=== PATIENT | female | born 1985 | race Two or more races ===

== ENCOUNTER 2017-05-19 10:24 | Emergency (ER) | payer MEDICAID ==
[2017-05-19 10:36] VITALS: BP 130/76
--- NOTE | 2017-05-19 12:04 | ER Document Report ---
HPI - HPI Patient complains to provider of: vaginal bleeding Onset: Other - 5 days Onset/Duration: Persistent Quality of pain: Cramping Pain Level: 4 Context: Patient presents complaining of heavy vaginal bleeding for the past 5 days. Patient states that she has been passing clots and has pelvic cramping. Patient denies any fever or urinary symptoms. Patient denies any concern about sexually transmitted infection. Patient states her menstrual cycles are usually very regular and she has not missed any periods. Associated Symptoms: Other - Heavy vaginal bleeding. denies: Fever, Nausea, Vomiting Exacerbated by: Denies Relieved by: Denies Similar symptoms previously: No Recently seen / treated by doctor: No - ROS ROS below otherwise negative: Yes Systems Reviewed and Negative: Yes All other systems reviewed and negative - CONSTITUTIONAL Constitutional: DENIES: Fever, Chills - EENT EENT: DENIES: Sore Throat, Ear Pain, Eye problems - NEURO Neurology: DENIES: Headache, Weakness, Vision blurred, Dizzinesss / Vertigo - CARDIOVASCULAR Cardiovascular: DENIES: Chest pain - RESPIRATORY Respiratory: DENIES: Trouble Breathing, Coughing - GASTROINTESTINAL Gastrointestinal: REPORTS: Abdominal Pain. DENIES: Black / Bloody Stools - URINARY Urinary: DENIES: Dysuria, Urgency - REPRODUCTIVE Reproductive: REPORTS: Abnormal bleeding / discharge. DENIES: :, Postmenopausal - MUSCULOSKELETAL Musculoskeletal: DENIES: Extremity pain Past Medical History - General Information source: Patient - Social History Smoking Status: Current Every Day Smoker Chew tobacco use (# tins/day): No Frequency of alcohol use: None Drug Abuse: None Occupation: None Lives with: Family Family History: None, Reviewed & Not Pertinent Patient has suicidal ideation: No Patient has homicidal ideation: No - Past Medical History Cardiac Medical History: Denies: Hx Atrial Fibrillation, Hx Congestive Heart Failure, Hx Coronary Artery Disease, Hx DVT, Hx Heart Attack, Hx Hypercholesterolemia, Hx Hypertension, Hx Peripheral Vascular Disease, Hx Pulmonary Embolism Pulmonary Medical History: Denies: Hx Asthma, Hx Bronchitis, Hx COPD, Hx Pneumonia Renal/ Medical History: Denies: Hx Peritoneal Dialysis Psychiatric Medical History: Reports: Hx Attention Deficit Hyperactivity Disorder Surgical Hx: Negative - Immunizations Immunizations up to date: Yes Hx Diphtheria, Pertussis, Tetanus Vaccination: Yes Vertical Provider Document - CONSTITUTIONAL Agree With Documented VS: Yes Exam Limitations: No Limitations General Appearance: WD/WN, No Apparent Distress - INFECTION CONTROL TRAVEL OUTSIDE OF THE [place] IN LAST 30 DAYS: No - HEENT HEENT: Atraumatic, Normocephalic - NECK Neck: Normal Inspection - RESPIRATORY Respiratory: Breath Sounds Normal, No Respiratory Distress O2 Sat by Pulse Oximetry: 99 - CARDIOVASCULAR Cardiovascular: Regular Rate, Regular Rhythm - GI/ABDOMEN Gastrointestinal: Abdomen Soft, Abdomen Tender - lower pelvic, Normal Bowel Sounds. negative: Abdominal Guarding - REPRODUCTIVE Female Genitalia: negative: CMT, Adnexal Pain-Right, Adnexal Pain-Left Notes: Patient with small amount of vaginal bleeding, cervix closed, no vaginal discharge - BACK Back: Normal Inspection. negative: CVA Tenderness-Right, CVA Tenderness-Left - MUSCULOSKELETAL/EXTREMETIES Musculoskeletal/Extremeties: DUC HERRERA - NEURO Level of Consciousness: Awake, Alert, Appropriate Motor/Sensory: No Motor Deficit - DERM Integumentary: Warm, Dry, No Rash Course - Re-evaluation Re-evalutation: 05/19/17 14:40 Provider went to speak with patient, patient not in the holding area that she was assigned to sit in. Patient accessed states that patient eloped at 1318 - Vital Signs Vital signs: Temp Pulse Resp BP Pulse Ox 98.3 F 73 20 130/76 H 99 05/19/17 10:33 05/19/17 10:33 05/19/17 10:33 05/19/17 10:33 05/19/17 10:33 - Laboratory Result Diagrams: 05/19/17 12:31 Laboratory results interpreted by me: 05/19/17 13:40 Labs- Entire Visit 05/19/17 05/19/17 05/19/17 11:52 11:52 12:31 WBC 8.6 RBC 4.48 Hgb 13.9 Hct 41.1 MCV 92 MCH 31.1 MCHC 33.9 RDW 13.3 Plt Count 346 Seg Neutrophils % 65.3 Lymphocytes % 22.0 Monocytes % 4.2 Eosinophils % 7.3 H Basophils % 1.2 Absolute Neutrophils 5.6 Absolute Lymphocytes 1.9 Absolute Monocytes 0.4 Absolute Eosinophils 0.6 Absolute Basophils 0.1 Serum HCG, Qual Trichomonas (Wet Prep) NO TRICHOMONAS SEEN Vaginal WBC 1+ WBCS SEEN Vaginal RBC 2+ RBCS SEEN Vaginal Yeast NO YEAST SEEN Chlamydia DNA (PCR) NOT DETECTED N.gonorrhoeae DNA (PCR) NOT DETECTED 05/19/17 12:31 WBC RBC Hgb Hct MCV MCH MCHC RDW Plt Count Seg Neutrophils % Lymphocytes % Monocytes % Eosinophils % Basophils % Absolute Neutrophils Absolute Lymphocytes Absolute Monocytes Absolute Eosinophils Absolute Basophils Serum HCG, Qual NEGATIVE Trichomonas (Wet Prep) Vaginal WBC Vaginal RBC Vaginal Yeast Chlamydia DNA (PCR) N.gonorrhoeae DNA (PCR) Discharge - Discharge Clinical Impression: Dysmenorrhea Disposition: ELOPED Instructions: Anti-Inflammatory Medication ([facility]), Dysmenorrhea ([facility]) Additional Instructions: Return immediately for any new or worsening symptoms Followup with your primary care provider, call tomorrow to make a followup appointment Follow-up with your dry cleaner presser for any continued problems Prescriptions: Naproxen [Naprosyn 250 Nmg Tablet] 1 tab PO BID #14 tablet Referrals: [facility] [Provider Group] - Follow up as needed [facility] [Provider Group] - Follow up as needed
[2017-05-19 12:58] LABS: ABSOLUTE BASOPHILS # (AUTO) 0.1 10^3/uL (0.0-0.2); ABSOLUTE EOSINOPHILS # (AUTO) 0.6 10^3/uL (0.0-0.6); ABSOLUTE LYMPHOCYTES (AUTO) 1.9 10^3/uL (0.5-4.7); ABSOLUTE MONOCYTES (AUTO) 0.4 10^3/uL (0.1-1.4); ABSOLUTE NEUT (AUTO) 5.6 10^3/uL (1.7-8.2); BASOPHILS % (AUTO) 1.2 % (0-2); EOSINOPHILS % (AUTO) 7.3 % (0-6); HEMATOCRIT 41.1 % (36.0-47.0); HEMOGLOBIN 13.9 g/dL (12.0-15.5); HGB HCT DIFFERENCE 0.6; MEAN CORPUSCULAR HEMOGLOBIN 31.1 pg (27.0-33.4); MEAN CORPUSCULAR HGB CONC 33.9 g/dL (32.0-36.0); MEAN CORPUSCULAR VOLUME 92 fl (80-97); MONOCYTES % (AUTO) 4.2 % (3-13); RED BLOOD COUNT 4.48 10^6/uL (3.72-5.28); RED CELL DISTRIBUTION WIDTH 13.3 % (11.5-14.0); SEGMENTED NEUTROPHILS % (AUTO) 65.3 % (42-78); WHITE BLOOD COUNT 8.6 10^3/uL (4.0-10.5)
[2017-05-19 13:35] LABS: CHLAM PCR NOT DETECTED (NOT DETECT)
[2017-05-19] MEDS ORDERED: IBUPROFEN 800 MG TABLET PO ONE (13:41)
== END 2017-05-19 13:48 | disposition left against medical advice (07) ==
LOC: ER 10:24
DX: N94.6 Dysmenorrhea, unspecified (principal); F17.200 Nicotine dependence, unspecified, uncomplicated
CPT/HCPCS: 36415; 84703; 85025; 87210; 87491; 87591; 99281

== ENCOUNTER 2017-07-15 18:45 | Emergency (ER) | payer MEDICAID ==
[2017-07-15 19:07] VITALS: BP 147/89
[2017-07-15] MEDS ORDERED: SULFAMETHOXAZOLE/TRIMETHOPRIM 800-160 MG TABLET PO ONE (19:35)
--- NOTE | 2017-07-15 19:42 | ER Document Report ---
ED General - General Chief Complaint: Overdose Stated Complaint: ALTERED MENTAL STATUS Time Seen by Provider: 07/15/17 19:26 Mode of Arrival: Medic Information source: Patient, [facility] Records TRAVEL OUTSIDE OF THE [place] IN LAST 30 DAYS: No - Related Data Allergies/Adverse Reactions: acetaminophen Allergy (Verified 07/15/17 18:58) Penicillins Allergy (Verified 07/15/17 18:58) Past Medical History - Social History Smoking Status: Current Every Day Smoker Frequency of alcohol use: Social Drug Abuse: Heroin Family History: None, Reviewed & Not Pertinent Patient has suicidal ideation: No Patient has homicidal ideation: No - Past Medical History Cardiac Medical History: Denies: Hx Atrial Fibrillation, Hx Congestive Heart Failure, Hx Coronary Artery Disease, Hx DVT, Hx Heart Attack, Hx Hypercholesterolemia, Hx Hypertension, Hx Peripheral Vascular Disease, Hx Pulmonary Embolism Pulmonary Medical History: Denies: Hx Asthma, Hx Bronchitis, Hx COPD, Hx Pneumonia Renal/ Medical History: Denies: Hx Peritoneal Dialysis Psychiatric Medical History: Reports: Hx Attention Deficit Hyperactivity Disorder, Hx Depression - Immunizations Immunizations up to date: Yes Hx Diphtheria, Pertussis, Tetanus Vaccination: Yes Physical Exam - Vital signs Vitals: Temp Pulse BP Pulse Ox 98.9 F 91 147/89 H 96 07/15/17 19:05 07/15/17 19:05 07/15/17 19:05 07/15/17 19:05 Course - Vital Signs Vital signs: Temp Pulse Resp BP Pulse Ox 98.9 F 91 147/89 H 96 07/15/17 19:05 07/15/17 19:05 07/15/17 19:05 07/15/17 19:05 Discharge - Discharge Clinical Impression: Accidental overdose of heroin Qualifiers: Encounter type: initial encounter Qualified Code(s): T40.1X1A - Poisoning by heroin, accidental (unintentional), initial encounter Infection of injection site Qualifiers: Encounter type: initial encounter Qualified Code(s): T80.29XA - Infection following other infusion, transfusion and therapeutic injection, initial encounter Condition: Stable Disposition: HOME, SELF-CARE Additional Instructions: You were close did from your drug overdose today. You appear to have an infected area developing on your left hand from the injections. You should take the antibiotics as prescribed. Date that hand all the time. Use warm soaks to the red swollen areas. Follow-up with a local medical doctor if the hand area does not improve. Follow-up with [facility] or [facility] for treatment with your depression and relapse into drug abuse. RETURN TO THE EMERGENCY ROOM IF ANY NEW OR WORSENING SYMPTOMS. Prescriptions: Sulfamethoxazole/Trimethoprim [Septra-Ds 800-160 mg Tablet] 2 tab PO BID #14 tablet Referrals: [facility] [Provider Group] - Follow up in 3-5 days [facility] [Provider Group] - Follow up in 3-5 days
== END 2017-07-15 19:45 | disposition home or self-care (01) ==
LOC: ER 18:45
DX: T40.1X1A Poisoning by heroin, accidental (unintentional), initial encounter (principal); T80.29XA Infection following other infusion, transfusion and therapeutic injection, initial encounter; F17.200 Nicotine dependence, unspecified, uncomplicated; Z88.0 Allergy status to penicillin; Z88.6 Allergy status to analgesic agent
CPT/HCPCS: 99284; J3490

== ENCOUNTER 2017-10-09 19:35 | Inpatient (IN) | payer MEDICAID ==
[2017-10-09] MEDS ORDERED: KETAMINE HCL INJ 500 MG/10 ML VIAL ONE (19:39)
[2017-10-09] MEDS ORDERED: RINGERS SOLUTION,LACTATED 2,000 ML IV ONE (19:43)
[2017-10-09] MEDS ORDERED: KETAMINE HCL INJ 500 MG/10 ML VIAL IM ONE (19:43)
[2017-10-09] MEDS ORDERED: ONDANSETRON HCL INJ/PF 4 MG/2 ML SDV IV ONE (19:46)
[2017-10-09] MEDS ORDERED: ONDANSETRON HCL INJ/PF 4 MG/2 ML SDV ONE (19:47)
--- NOTE | 2017-10-09 19:54 | ER Document Report ---
ED General - General Stated Complaint: POSSIBLE OVERDOSE Time Seen by Provider: 10/09/17 19:42 Cannot obtain history due to: Intoxicated, Altered mental status Notes: Patient is a 31-year-old female who presents acutely agitated, obviously delirious in the custody of her after she apparently took cocaine. Patient is unable to provide any meaningful history, is in obvious agitated delirium TRAVEL OUTSIDE OF THE [place] IN LAST 30 DAYS: No - Related Data Allergies/Adverse Reactions: acetaminophen Allergy (Verified 10/09/17 22:27) Penicillins Allergy (Verified 10/09/17 22:27) Past Medical History - General Information source: Relative Cannot obtain history due to: Mentally challenged, Intoxicated - Social History Smoking Status: Current Every Day Smoker Frequency of alcohol use: Occasional Drug Abuse: Cocaine, Other Lives with: Spouse/Significant other Family History: Reviewed & Not Pertinent - Past Medical History Cardiac Medical History: Denies: Hx Atrial Fibrillation, Hx Congestive Heart Failure, Hx Coronary Artery Disease, Hx DVT, Hx Heart Attack, Hx Hypercholesterolemia, Hx Hypertension, Hx Peripheral Vascular Disease, Hx Pulmonary Embolism Pulmonary Medical History: Denies: Hx Asthma, Hx Bronchitis, Hx COPD, Hx Pneumonia Renal/ Medical History: Denies: Hx Peritoneal Dialysis Psychiatric Medical History: Reports: Hx Attention Deficit Hyperactivity Disorder, Hx Depression - Immunizations Immunizations up to date: Yes Hx Diphtheria, Pertussis, Tetanus Vaccination: Yes Review of Systems - Review of Systems -: Yes ROS unobtainable due to patient's medical condition Physical Exam - Vital signs Vitals: Resp Pulse Ox 39 H 95 10/09/17 19:41 10/09/17 19:41 Interpretation: Hypertensive, Tachycardic, Tachypneic, Febrile Notes: PHYSICAL EXAMINATION: GENERAL: Extremely agitated, diaphoretic, profoundly confused, yelling HEAD: Atraumatic, normocephalic. EYES: Pupils dilated 5 mm bilaterally, equally reactive right drain, extraocular movements intact, sclera anicteric, conjunctiva are normal. ENT: nares patent, oropharynx clear without exudates. Dry mucous membranes. NECK: Normal range of motion, supple without lymphadenopathy LUNGS: Breath sounds clear to auscultation bilaterally and equal. No wheezes rales or rhonchi. Tachypneic, hyperventilating HEART: Regular tachycardia without murmurs ABDOMEN: Soft, normoactive bowel sounds. No guarding, no rebound. No masses appreciated. EXTREMITIES: Normal range of motion, no pitting or edema. No cyanosis. NEUROLOGICAL: Moves all extremities spontaneously but does not follow commands, does not respond any questions. PSYCH: Agitated delirium, yelling, combative, will not stop moving around. SKIN: Warm, diaphoretic, tactile fever Course - Re-evaluation Re-evalutation: 10/09/17 19:44 Patient presents extremely agitated, screaming, flailing around the bed, almost uncontrollably moving her upper extremities unable to be redirected. Family member with her states that she stated she had "smoked a blunt" shortly prior to the onset of these symptoms. The patient has been seen in the emergency department on previous occasions for toxin induced altered mental status. I was immediately at the bedside to help evaluate the patient. She patient was undressed, no evidence of trauma anywhere on examination. She was noted to be markedly tachycardic. Due to the patient's obvious agitated delirium 400 mg of intramuscular ketamine was administered to help calm the patient and break the cycle of agitated delirium. IVs will be established and we will begin giving IV fluids as I am concerned the patient may be inducing exertion based rhabdomyolysis given her diaphoresis, agitation and abnormal vital signs as well as uncontrollable muscle movements. Will also obtain a broad panel of laboratories. Patient has been placed on director workers compensation and will require frequent reassessments. 10/09/17 19:54 Patient still very restless, tremulous, minimally improved from prior. Will await an additional 10 minutes to allow the ketamine to take full action. 10/09/17 20:47 Documentation is necessarily delayed as I have been continuously at the patient' s bedside for the past 40 minutes. In summary the patient has continued to have severe agitated delirium, unable to hold her limbs still, virtually no effect from 400 mg of intramuscular ketamine, 2 mg of intravenous midazolam or 4 mg of intramuscular midazolam. Patient's core temperature seen on an indwelling Plascencia catheter has continued to climb and reached a peak of 106.7F. At this time I did not see any acceptable alternative to paralyzation and intubation. Patient was paralyzed with rocuronium and sedated with propofol, first pass attempt was successful for 7.5 ET tube. Patient has been placed on a vecuronium infusion. Rectal Tylenol has been administered. Patient has only put out 4 cc of urine since a Plascencia catheter was placed over 40 minutes ago. Patient did pull out 2 IVs that have been established. I did establish a left EJ. The first liter of IV fluids infusing. Now that the patient is sedated and paralyzed we will begin placing additional peripheral IVs and began 2 L of additional fluids. Cold packs have been placed in the patient's axilla bilaterally as well as her groin. We do not have cold fluids available so room temperature fluids are being used. I have updated the at the bedside regarding the patient's care. Patient is somewhat hypotensive after receiving propofol and undergoing intubation. Current map is 56. Will begin with aggressive IV fluids as discussed and monitor for response. Also currently holding a propofol infusion as the patient already has a large amount of sedation on board and this is likely contributing to her hypotension. 10/09/17 21:23 The second external jugular vein that I cannulated has blown and we now are back to having only one-point of IV access. Will therefore place an intraosseous line. Patient's vitals are improving, heart rate down to 128, blood pressure is much improved at 125 and 7 of 8. Her temperature is now decreasing currently at 104.9. Will continue to reassess frequently. 10/09/17 21:36 Left external jugular vein was successfully recannulated. Wean off to points of IV access and one IO access that are all working well. Will therefore defer central line at this time as patient has reasonable access and we have been able to infuse 2 L of currently working through the third and fourth liter. Laboratories have returned showing leukocytosis, acute kidney injury, no significant CK elevation. 10/09/17 22:45 Patient is continued to stabilize very well, heart rate now 98, pressure 125 and 74, 100% on 70% FiO2. Her temperature is likewise normalized. I have discussed with the hospitalist who has accepted the patient for admission. - Vital Signs Vital signs: Temp Pulse Resp BP Pulse Ox 14 122/75 100 10/09/17 22:30 10/09/17 22:30 10/09/17 22:30 - Laboratory Result Diagrams: 10/09/17 20:30 10/09/17 20:30 Laboratory results interpreted by me: 10/09/17 10/09/17 10/09/17 20:30 20:30 20:30 WBC 17.9 H RDW 14.9 H Absolute Neutrophils 12.2 H Sodium 146.3 H Potassium 5.7 H Chloride 108 H Carbon Dioxide 16 L Anion Gap 22 H Creatinine 1.76 H Est GFR ( Amer) 40 L Est GFR (Non-Af Amer) 33 L Glucose 165 H Calcium 10.4 H AST 65 H ALT 84 H Creatine Kinase 291 H Albumin 5.1 H Urine Blood SMALL H Urine Urobilinogen 2.0 H Salicylates < 1.0 L Acetaminophen < 10 L - Diagnostic Test Radiology reviewed: Image reviewed, Reports reviewed Radiology results interpreted by me: 10/09/17 22:45 Chest x-ray: ET tube requires advancement by approximately 2-3 cm. No acute infiltrate Critical Care Note - Critical Care Note Total time excluding time spent on procedures (mins): 108 Comments: Critical care time spent obtaining history from patient or surrogate, discussions with consultants, development of treatment plan with patient or surrogate, evaluation of patient's response to treatment, examination of patient , ordering and performing treatments and interventions, ordering and review of laboratory studies, re-evaluation of patient's condition, ordering and review of radiographic studies and review of old charts Discharge - Discharge Clinical Impression: Delirium, Hyperthermia, Acute kidney injury, Agitation, Drug induced delusional state Condition: Critical Disposition: ADMITTED INPATIENT Admitting Provider: Hospitalist Unit Admitted: ICU
[2017-10-09] MEDS ORDERED: MIDAZOLAM 2 MG/2 ML INJ ONE ×3 (20:16→20:25)
[2017-10-09] MEDS ORDERED: MIDAZOLAM 2 MG/2 ML INJ IV ONE (20:19)
[2017-10-09] MEDS ORDERED: PROPOFOL 100 ML IV ONE (20:29)
[2017-10-09] MEDS ORDERED: VECURONIUM BROMIDE INJ 10 MG VIAL IV ONE (20:29)
[2017-10-09] MEDS ORDERED: ACETAMINOPHEN 325 MG SUPP.RECT PR ONE (20:31)
[2017-10-09 20:42] LABS: ABSOLUTE BASOPHILS # (AUTO) 0.1 10^3/uL (0.0-0.2); ABSOLUTE EOSINOPHILS # (AUTO) 0.5 10^3/uL (0.0-0.6); ABSOLUTE LYMPHOCYTES (AUTO) 4.4 10^3/uL (0.5-4.7); ABSOLUTE MONOCYTES (AUTO) 0.7 10^3/uL (0.1-1.4); ABSOLUTE NEUT (AUTO) 12.2 10^3/uL (1.7-8.2); BASOPHILS % (AUTO) 0.8 % (0-2); EOSINOPHILS % (AUTO) 2.9 % (0-6); HEMATOCRIT 42.2 % (36.0-47.0); HEMOGLOBIN 13.9 g/dL (12.0-15.5); LYMPHOCYTES % (AUTO) 24.3 % (13-45); MEAN CORPUSCULAR HEMOGLOBIN 30.4 pg (27.0-33.4); MEAN CORPUSCULAR HGB CONC 32.9 g/dL (32.0-36.0); MEAN CORPUSCULAR VOLUME 93 fl (80-97); MONOCYTES % (AUTO) 3.8 % (3-13); PLATELET COUNT 429 10^3/uL (150-450); RED BLOOD COUNT 4.56 10^6/uL (3.72-5.28); RED CELL DISTRIBUTION WIDTH 14.9 % (11.5-14.0); SEGMENTED NEUTROPHILS % (AUTO) 68.2 % (42-78); TOTAL CELLS COUNTED % (AUTO) 100 %; WHITE BLOOD COUNT 17.9 10^3/uL (4.0-10.5)
[2017-10-09] MEDS ORDERED: PROPOFOL INJ 200 MG/20 ML VIAL IV ONE (20:46)
[2017-10-09] MEDS ORDERED: ROCURONIUM BROMIDE INJ 50 MG/5 ML VIAL IV ONE (20:46)
[2017-10-09] MEDS ORDERED: NORMAL SALINE 100 ML with VECURONIUM BROMIDE 10 MG IV PRN ×2 (20:46)
[2017-10-09] MEDS ORDERED: RINGERS SOLUTION,LACTATED 1,000 ML IV ONE (20:46)
[2017-10-09] MEDS ORDERED: PROPOFOL 100 ML IV PRN (20:47)
[2017-10-09 20:56] LABS: ALANINE AMINOTRANSFERASE 84 U/L (9-52); ALBUMIN 5.1 g/dL (3.5-5.0); ALKALINE PHOSPHATASE 93 U/L (38-126); ASPARTATE AMINO TRANSFERASE 65 U/L (14-36); BILIRUBIN,DIRECT 0.3 mg/dL (0.0-0.4); BILIRUBIN,TOTAL 0.3 mg/dL (0.2-1.3); BLOOD UREA NITROGEN 12 mg/dL (7-20); CALCIUM 10.4 mg/dL (8.4-10.2); CARBON DIOXIDE 16 mmol/L (22-30); CREATINE KINASE 291 U/L (30-135); GLUCOSE 165 mg/dL (75-110); POTASSIUM 5.7 mmol/L (3.6-5.0); TOTAL PROTEIN 8.1 g/dL (6.3-8.2)
[2017-10-09 20:57] LABS: ACETAMINOPHEN < 10 ug/mL (10-30); SALICYLATE < 1.0 mg/dL (2.0-20.0)
[2017-10-09 21:01] LABS: ANION GAP 22 (5-19); CHLORIDE 108 mmol/L (98-107); SODIUM 146.3 mmol/L (137-145)
--- NOTE | 2017-10-09 21:21 | RADIOLOGY REPORT (SQ) ---
EXAM DESCRIPTION: CHEST SINGLE VIEW COMPLETED DATE/TIME: 10/09/2017 9:09 pm REASON FOR STUDY: post-intubation COMPARISON: None. EXAM PARAMETERS: NUMBER OF VIEWS: One view. TECHNIQUE: Single frontal radiographic view of the chest acquired. RADIATION DOSE: NA LIMITATIONS: None. FINDINGS: LUNGS AND PLEURA: No opacities, masses or pneumothorax. No pleural effusion. MEDIASTINUM AND HILAR STRUCTURES: No masses. Contour normal. HEART AND VASCULAR STRUCTURES: Heart normal in size. Normal vasculature. BONES: No acute findings. HARDWARE: Endotracheal tube tip overlies the mid trachea, approximately 4.5 cm above the level of the dandre. Nasogastric catheter tip overlies the body of the stomach, side port is near the GE junctio n. OTHER: No other significant finding. IMPRESSION: Endotracheal tube tip overlies the mid trachea, approximately 4.5 cm above the level of the dandre. Nasogastric catheter tip overlies the body of the stomach, side port is near the GE junc tion. No acute cardiopulmonary finding otherwise. TECHNICAL DOCUMENTATION: JOB ID: [id number] [id number] 2010 [employer]- All Rights Reserved Reading location - IP/workstation name: [employer]
[2017-10-09] MEDS ORDERED: NORMAL SALINE 1000 ML 1,000 ML IV ONE (21:37)
[2017-10-09] MEDS ORDERED: MIDAZOLAM 2 MG/2 ML INJ IM ONE (21:37)
[2017-10-09 21:42] LABS: APPEARANCE,URINE TURBID; BILIRUBIN,URINE NEGATIVE (NEGATIVE); COLOR,URINE YELLOW; GLUCOSE, URINE NEGATIVE (NEGATIVE); KETONES,URINE NEGATIVE (NEGATIVE); LEUKOCYTE ESTERASE,URINE NEGATIVE (NEGATIVE); NITRITE,URINE NEGATIVE (NEGATIVE); PROTEIN,URINE NEGATIVE (NEGATIVE); URINE SPECIFIC GRAVITY 1.024
[2017-10-09 21:45] LABS: URINE AMPHETAMINES SCREEN NEGATIVE; URINE BARBITURATES SCREEN NEGATIVE; URINE BENZODIAZEPINES SCREEN NEGATIVE; URINE COCAINE SCREEN UNCONFIRMED POSITIVE; URINE MARIJUANA (THC) SCREEN NEGATIVE; URINE METHADONE SCREEN NEGATIVE; URINE PHENCYCLIDINE SCREEN NEGATIVE
[2017-10-09] MEDS ORDERED: NORMAL SALINE 1000 ML 1,000 ML IV PRN (22:14)
[2017-10-09] MEDS ORDERED: PROMETHAZINE HCL INJ 25 MG/1 ML VIAL IV PRN (22:14)
[2017-10-09] MEDS ORDERED: ALBUTEROL SULFATE 0.083% NEB 2.5 MG/3 ML AMPUL NEB PRN (22:14)
[2017-10-09] MEDS ORDERED: ACETAMINOPHEN 650 MG SUPP.RECT PR PRN (22:14)
[2017-10-09] MEDS ORDERED: MIDAZOLAM HCL 50 MG/100 ML RTUINJ IV ONE (22:52)
[2017-10-09] MEDS: MIDAZOLAM HCL 50 MG/100 ML RTUINJ IV PRN (22:57)
[2017-10-10] MEDS ORDERED: VECURONIUM BROMIDE INJ 10 MG VIAL IV ONE ×2 (00:03→02:21)
--- NOTE | 2017-10-10 00:03 | EKG REPORT ---
SEVERITY:- BORDERLINE ECG - SINUS TACHYCARDIA BORDERLINE PROLONGED QT INTERVAL : Confirmed by: You Rosenthal 10-Oct-2017 00:02:16
[2017-10-10 02:13] LABS: URINE CREATININE 22.4 mg/dL (16-327); URINE PROTEIN 37.6 mg/dL (<12)
--- NOTE | 2017-10-10 03:06 | PDOC H&P ---
History of Present Illness Admission Date/PCP: KLAUS CLINTON MD Patient complains of: Extreme agitation. Temperature up to 106.8 in the ED. History of Present Illness: BEBETO MOREL is a 31 year old female with history of drug abuse and ADHD was admitted with above-mentioned complaints. The patient is currently intubated so most of the history was obtained from the ED physician/notes. According to the ED physician, the patient was extremely agitated and flailing. A family member mentioned that her symptoms started after she "smoked a blunt. " Her sister at bedside said that she was not aware of her medical condition. She said that she was at her baseline this morning when she went to baptism, and she was told that she cooked lunch this afternoon. She also said that her sister some drug problem when she was living in [place] many years ago. In the ED, her temperature was 100.8 (up to 106.8), heart rate 150, respiratory rate 39, blood pressure 115/59 (up to 252/240 and down to 70/47 after intubation ), 95% on room air. Her WBC was 17.9 with hemoglobin of 13.9. UA was negative and her urine drug screen was positive for cocaine. A CXR was done which was unremarkable. The patient received 400 mg IM ketamine 1, 2 mg IV Versed 1, 4 mg IM Versed 1 with no significant improvement in her symptoms so she was intubated. She was started on propofol and Vecuronium drips. She has also been cooled down. Her temperature is currently down to 98.5, heart rate 99, blood pressure 122/75. Past Medical History Medical History: Other - History of drug abuse. Unable to obtain accurate history at this time since intubated/sedated. Cardiac Medical History: Denies: Atrial Fibrillation, Congestive Heart Failure, Coronary Artery Disease, DVT, Myocardial Infarction, Hyperlipidema, Hypertension, Peripheral Vascular Disease, Pulmonary Embolism Pulmonary Medical History: Denies: Asthma, Bronchitis, Chronic Obstructive Pulmonary Disease (COPD), Pneumonia Psychiatric Medical History: Reports: Attention Deficit Hyperactivity Disorder, Depression Past Surgical History Past Surgical History: Reports: Other - unable to obtained at this time since the patient is intubated/sedated. Social History Smoking Status: Unknown if Ever Smoked Amount of Alcoholic Beverages Per Day: unknown. Hx Recreational Drug Use: Yes Drugs: Cocaine, Methadone, Other - possible IVDA. Family History Family History: Other Parental Family History Reviewed: Yes - unable to obtain at this time since intubated/sedated. Children Family History Reviewed: No Sibling(s) Family History Reviewed.: Yes Medication/Allergy Home Medications: Methadone HCl 80 mg PO DAILY 07/14/14 Vits96/Iron Fum/Folic [ Tablet] 1 each PO DAILY 10/16/14 Acetaminophen with Codeine [Tylenol #3 Tablet] 1 each PO Q4HP PRN #30 tablet 03/04 Docusate Sodium [Colace 100 mg Capsule] 100 mg PO BID 12/26/14 Docusate Sodium [Colace 100 mg Capsule] 100 mg PO BID #60 capsule 12/26/14 Ibuprofen [Motrin 800 mg Tablet] 800 mg PO MEALS PRN 12/26/14 Ibuprofen [Motrin 800 mg Tablet] 800 mg PO Q8 PRN #30 tablet 12/26/14 Naproxen [Naprosyn 250 Nmg Tablet] 1 tab PO BID #14 tablet 05/19/17 Sulfamethoxazole/Trimethoprim [Septra-Ds 800-160 mg Tablet] 2 tab PO BID #14 tablet 07/15/17 Allergies/Adverse Reactions: acetaminophen Allergy (Verified 10/09/17 22:27) Penicillins Allergy (Verified 10/09/17 22:27) Review of Systems ROS unobtainable: Other - The pain since the patient is intubated and sedated. Physical Exam Vital Signs: Temp Pulse Resp BP Pulse Ox 19 164/95 H 94 10/09/17 21:11 10/09/17 21:11 10/09/17 21:11 General appearance: PRESENT: other - intubated/sedated. Eye exam: PRESENT: other - dilated pupils, no reactive to light at this time. Mouth exam: PRESENT: other - intubated. Neck exam: ABSENT: JVD Respiratory exam: PRESENT: decreased breath sounds. ABSENT: rales, rhonchi, wheezes Cardiovascular exam: PRESENT: RRR, +S1, +S2 Pulses: PRESENT: normal dorsalis pedis pul GI/Abdominal exam: PRESENT: normal bowel sounds, soft. ABSENT: distended, guarding, rebound, tenderness Rectal exam: PRESENT: deferred Extremities exam: PRESENT: other. ABSENT: pedal edema - the patient is on Vecuronium drip. Musculoskeletal exam: PRESENT: other - the patient is on Vecuronium drip. Neurological exam: PRESENT: other - intubated and sedated. she is on Vecuronium drip (unable to assess reflexes). Skin exam: PRESENT: dry, intact, warm. ABSENT: rash Results Laboratory Results: 10/09/17 20:30 10/09/17 20:30 10/09/17 10/09/17 10/09/17 20:30 20:30 20:30 WBC 17.9 H RBC 4.56 Hgb 13.9 Hct 42.2 MCV 93 MCH 30.4 MCHC 32.9 RDW 14.9 H Plt Count 429 Seg Neutrophils % 68.2 Lymphocytes % 24.3 Monocytes % 3.8 Eosinophils % 2.9 Basophils % 0.8 Absolute Neutrophils 12.2 H Absolute Lymphocytes 4.4 Absolute Monocytes 0.7 Absolute Eosinophils 0.5 Absolute Basophils 0.1 Sodium 146.3 H Potassium 5.7 H Chloride 108 H Carbon Dioxide 16 L Anion Gap 22 H BUN 12 Creatinine 1.76 H Est GFR ( Amer) 40 L Est GFR (Non-Af Amer) 33 L Glucose 165 H Calcium 10.4 H Total Bilirubin 0.3 AST 65 H ALT 84 H Alkaline Phosphatase 93 Total Protein 8.1 Albumin 5.1 H Serum HCG, Qual NEGATIVE Urine Color Urine Appearance Urine pH Ur Specific [place] Urine Protein Urine Glucose (UA) Urine Ketones Urine Blood Urine Nitrite Ur Leukocyte Esterase Urine WBC (Auto) Urine RBC (Auto) 10/09/17 20:30 WBC RBC Hgb Hct MCV MCH MCHC RDW Plt Count Seg Neutrophils % Lymphocytes % Monocytes % Eosinophils % Basophils % Absolute Neutrophils Absolute Lymphocytes Absolute Monocytes Absolute Eosinophils Absolute Basophils Sodium Potassium Chloride Carbon Dioxide Anion Gap BUN Creatinine Est GFR ( Amer) Est GFR (Non-Af Amer) Glucose Calcium Total Bilirubin AST ALT Alkaline Phosphatase Total Protein Albumin Serum HCG, Qual Urine Color YELLOW Urine Appearance TURBID Urine pH 5.0 Ur Specific [place] 1.024 Urine Protein NEGATIVE Urine Glucose (UA) NEGATIVE Urine Ketones NEGATIVE Urine Blood SMALL H Urine Nitrite NEGATIVE Ur Leukocyte Esterase NEGATIVE Urine WBC (Auto) 1 Urine RBC (Auto) 1 10/09/17 20:30 Creatine Kinase 291 H Impressions: Chest X-Ray 10/09/17 20:46 IMPRESSION: Endotracheal tube tip overlies the mid trachea, approximately 4.5 cm above the level of the dandre. Nasogastric catheter tip overlies the body of the stomach, side port is near the GE junction. No acute cardiopulmonary finding otherwise. Assessment & Plan - Diagnosis (1) Serotonin syndrome Is this a current diagnosis for this admission?: Yes Plan: possible due drug ingestion other than cocaine. Will switch to Versed drip and taper down Vecuronium drip. Will continue supportive care with ventilation and cooling. Urine drug screen only showed cocaine. Will check ABG. (2) SIRS (systemic inflammatory response syndrome) Is this a current diagnosis for this admission?: Yes Plan: Given leukocytosis, fever and heart rate of 96. There is no evidence of any infection at this time. Will follow up blood cultures and lactic acid level and start antibiotics as indicated. (3) Acute kidney injury Is this a current diagnosis for this admission?: Yes Plan: with anuria per ED physician, possibly prerenal improved with IV fluids. Will continue IV fluids and monitor kidney function and urine output. Her UA is negative. Willl check urine osm, urine sodium, creatinine and protein and kidney US. (4) Electrolyte abnormality Is this a current diagnosis for this admission?: Yes Plan: With hyperkalemia and non-gap metabolic acidosis in the setting of acute renal failure. Will repeat BMP and replace electrolytes as needed. (5) Labile blood pressure Is this a current diagnosis for this admission?: Yes Plan: currently better controlled. Will continue to monitor. (6) History of drug abuse Is this a current diagnosis for this admission?: Yes Plan: and ADHD per her sister. Will check hepatitis profile and HIV. - Time Time Spent: Greater than 70 Minutes - Inpatient Certification Based on my medical assessment, after consideration of the patient's comorbidities, presenting symptoms, or acuity I expect that the services needed warrant INPATIENT care.: Yes I certify that my determination is in accordance with my understanding of Medicare's requirements for reasonable and necessary INPATIENT services [42 CFR 412.3e].: Yes
[2017-10-10 03:13] LABS: ANION GAP 17 (5-19); BLOOD UREA NITROGEN 17 mg/dL (7-20); CALCIUM 8.7 mg/dL (8.4-10.2); CARBON DIOXIDE 20 mmol/L (22-30); CHLORIDE 115 mmol/L (98-107); GLUCOSE 62 mg/dL (75-110); SODIUM 151.8 mmol/L (137-145)
[2017-10-10 03:22] LABS: POTASSIUM 4.2 mmol/L (3.6-5.0)
[2017-10-10 03:51] LABS: ARTERIAL BLOOD BASE EXCESS -10.3 mmol/L; ARTERIAL BLOOD H2CO3 1.69 mmol/L (1.05-1.35); ARTERIAL BLOOD O2 SATURATION 94.6 % (94-98); ARTERIAL BLOOD TOTAL CO2 20.7 mmol/L (21-25)
[2017-10-10 03:52] LABS: ARTERIAL BLOOD FIO2 50%
[2017-10-10 03:53] LABS: ARTERIAL BLOOD PH 7.15 (7.35-7.45)
[2017-10-10 04:06] LABS: HEMATOCRIT 41.4 % (36.0-47.0); HEMOGLOBIN 13.4 g/dL (12.0-15.5); MEAN CORPUSCULAR HEMOGLOBIN 30.6 pg (27.0-33.4); MEAN CORPUSCULAR HGB CONC 32.4 g/dL (32.0-36.0); MEAN CORPUSCULAR VOLUME 95 fl (80-97); PLATELET COUNT 259 10^3/uL (150-450); RED BLOOD COUNT 4.38 10^6/uL (3.72-5.28); RED CELL DISTRIBUTION WIDTH 15.4 % (11.5-14.0); WHITE BLOOD COUNT 27.1 10^3/uL (4.0-10.5)
[2017-10-10] MEDS ORDERED: DEXTROSE 5%-1/2 NORMAL SALINE 1,000 ML IV PRN (04:08)
[2017-10-10] MEDS: HEPARIN SOD (PORCINE) 5,000 UNIT/ML 1 ML SYRINGE SUBCUT SCH ×2 (05:03→14:23)
[2017-10-10 06:09] LABS: ARTERIAL BLOOD BASE EXCESS -8.3 mmol/L; ARTERIAL BLOOD H2CO3 1.35 mmol/L (1.05-1.35); ARTERIAL BLOOD HCO3 18.8 mmol/L (20-26); ARTERIAL BLOOD O2 SATURATION 97.1 % (94-98); ARTERIAL BLOOD PCO2 44.8 mmHg (35-45); ARTERIAL BLOOD PH 7.24 (7.35-7.45); ARTERIAL BLOOD PO2 108.1 mmHg (80-100); ARTERIAL BLOOD TOTAL CO2 20.2 mmol/L (21-25)
[2017-10-10 06:15] LABS: ARTERIAL BLOOD FIO2 40%
--- NOTE | 2017-10-10 07:06 | RADIOLOGY REPORT (SQ) ---
EXAM DESCRIPTION: U/S RETROPERITONEAL LTD (accession [id number]), U/S ABDOMEN LTD W/DOPPLER (accession [id number]) CLINICAL HISTORY: [place] COMPARISON: None. TECHNIQUE: Real-time sonographic images of the abdomen were obtained using a curved multi hertz transducer. FINDINGS: The visualized portions of the pancreas are unremarkable. The visualized portions of the aorta and IVC are unremarkable. The liver has normal contour and echogenicity. The common bile duct measures 0.2 cm. Cholelithiasis. Mild gallbladder wall thickening measuring 0.4 cm. The right kidney measures 12.2 cm in length. The left kidney measures 11.0 cm in length. Increased cortical echogenicity bilaterally. Mild bilateral hydronephrosis, greater on the right than the left. Plascencia catheter in a decompressed urinary bladder. IMPRESSION: 1. Cholelithiasis with gallbladder wall thickening. These findings could be seen with acute cholecystitis. 2. Mild bilateral hydronephrosis, greater on the right than the left. 3. Increased renal cortical echogenicity. This could be seen with medical renal disease.
--- NOTE | 2017-10-10 07:06 | RADIOLOGY REPORT (SQ) ---
EXAM DESCRIPTION: U/S RETROPERITONEAL LTD (accession [id number]), U/S ABDOMEN LTD W/DOPPLER (accession [id number]) CLINICAL HISTORY: [place] COMPARISON: None. TECHNIQUE: Real-time sonographic images of the abdomen were obtained using a curved multi hertz transducer. FINDINGS: The visualized portions of the pancreas are unremarkable. The visualized portions of the aorta and IVC are unremarkable. The liver has normal contour and echogenicity. The common bile duct measures 0.2 cm. Cholelithiasis. Mild gallbladder wall thickening measuring 0.4 cm. The right kidney measures 12.2 cm in length. The left kidney measures 11.0 cm in length. Increased cortical echogenicity bilaterally. Mild bilateral hydronephrosis, greater on the right than the left. Plascencia catheter in a decompressed urinary bladder. IMPRESSION: 1. Cholelithiasis with gallbladder wall thickening. These findings could be seen with acute cholecystitis. 2. Mild bilateral hydronephrosis, greater on the right than the left. 3. Increased renal cortical echogenicity. This could be seen with medical renal disease.
[2017-10-10 07:15] LABS: ALANINE AMINOTRANSFERASE 103 U/L (9-52); ALBUMIN 3.7 g/dL (3.5-5.0); ALKALINE PHOSPHATASE 78 U/L (38-126); ANION GAP 17 (5-19); ASPARTATE AMINO TRANSFERASE 122 U/L (14-36); BILIRUBIN,DIRECT 0.3 mg/dL (0.0-0.4); BILIRUBIN,TOTAL 0.3 mg/dL (0.2-1.3); BLOOD UREA NITROGEN 21 mg/dL (7-20); CALCIUM 8.4 mg/dL (8.4-10.2); CARBON DIOXIDE 19 mmol/L (22-30); CHLORIDE 114 mmol/L (98-107); GLUCOSE 99 mg/dL (75-110); POTASSIUM 3.6 mmol/L (3.6-5.0); SODIUM 149.6 mmol/L (137-145); TOTAL PROTEIN 6.4 g/dL (6.3-8.2)
[2017-10-10] MEDS ORDERED: VANCOMYCIN HCL 0 MG in DEXTROSE 5%-WATER 250 ML IV NR (08:00)
[2017-10-10] MEDS ORDERED: PIPERACILLIN SODIUM/TAZOBACTAM 3.375 GM in NORMAL SALINE 100 ML IV SCH (09:00)
[2017-10-10] MEDS ORDERED: VANCOMYCIN HCL 1,250 MG in DEXTROSE 5%-WATER 250 ML IV ONE (09:00)
[2017-10-10] MEDS: PANTOPRAZOLE SODIUM 40 MG VIAL IV SCH (10:51)
[2017-10-10] MEDS ORDERED: ROCURONIUM BROMIDE INJ 50 MG/5 ML VIAL IV ONE (13:31)
--- NOTE | 2017-10-10 13:39 | RADIOLOGY REPORT (SQ) ---
EXAM DESCRIPTION: CHEST SINGLE VIEW COMPLETED DATE/TIME: 10/10/2017 1:24 pm REASON FOR STUDY: Central Line Placement COMPARISON: 10/09/2017 NUMBER OF VIEWS: One view. TECHNIQUE: Single frontal radiographic image of the chest acquired. LIMITATIONS: None. FINDINGS: LUNGS AND PLEURA: Clear. No pneumothorax. MEDIASTINUM AND HEART: Stable heart size and mediastinal structures. SUPPORT DEVICES: Unchanged position of nasogastric and endotracheal tubes. Interval placement of rig ht central line with tip overlying SVC. BONY STRUCTURES: No acute findings. HARDWARE: None. OTHER: No other significant finding. IMPRESSION: Satisfactory position of right jugular central line. No pneumothorax. Reading location - IP/workstation name: [facility]
[2017-10-10] MEDS ORDERED: NORMAL SALINE INJ/PF 0.9% 10 ML SDV IV PRN (14:01)
--- NOTE | 2017-10-10 14:03 | Operative Report ---
Bedside Procedure - History of Present Illness History of Present Illness: BEBETO MOREL is a 31 year old female with altered mental status from uncertain etiology Indication for Procedure: poor venous access Date: 10/10/17 - Central Line Right Internal jugular Time completed: 12:55 Consent obtained: Yes Central line pre-insertion: Sterile PPE donned, Betadine prep applied, Chloraprep applied, Sterile drapes applied Central line lumen type: Triple Anesthetic type: 2% Lidocaine Ultrasound guided: Yes Line secured with sutures: Yes Central line post-insertion: Blood return from lumens, Biopatch applied, Sutured , Sterile dressing applied, Position confirmed w/ CXR, Other Complications: No
--- NOTE | 2017-10-10 14:10 | PDOC CONSULTATION ---
Consultation Consult Date: 10/10/17 Attending physician:: DANIAL CORTES Consult reason:: Acute respiratory failure History of Present Illness Admission Date/PCP: 10/09/17 22:22 KLAUS CLINTON MD History of Present Illness: BEBETO MOREL is a 31 year old female Presented to family members acutely disoriented who was brought to the emergency room with increasing lethargy and confusion subsequently she was intubated there is no history of nausea vomiting diarrhea fevers or chills no hemoptysis been noted as reported the patient may have smoked or otherwise ingested a foreign substance but specifics of this are not identified at this time she is currently intubated and sedated per family she does smoke but has had a history of substance abuse in the past but is gone to rehab and was doing well from family she has no history of lung disease as a child or adolescent she has been exposed to lots of passive smoke as a child and as an adult is no significant occupational history many dogs at home but no recent travel she does not report any chest pain to family members. Past Medical History Cardiac Medical History: Denies: Atrial Fibrillation, Congestive Heart Failure, Coronary Artery Disease, DVT, Myocardial Infarction, Hyperlipidema, Hypertension, Peripheral Vascular Disease, Pulmonary Embolism Pulmonary Medical History: Denies: Asthma, Bronchitis, Chronic Obstructive Pulmonary Disease (COPD), Pneumonia Psychiatric Medical History: Reports: Attention Deficit Hyperactivity Disorder, Bipolar Disorder, Depression Past Surgical History Past Surgical History: Reports: Other - unable to obtained at this time since the patient is intubated/sedated. Social History Information Source: Relative, [facility] Records Lives with: Spouse/Significant other Smoking Status: Current Some Day Smoker Passive smoke exposure as: Both Frequency of Alcohol Use: Rare Hx Recreational Drug Use: Yes Drugs: Cocaine, Methadone, Other - possible IVDA. Hx Prescription Drug Abuse: Yes Do you have pets?: Yes Have you had any respiratory illnesses as a child?: No Have you been exposed to any sick contacts recently?: No Have you had any recent respiratory illnesses?: No Have you travelled outside of [place] in the past 12 months?: No Family History Family History: Other Parental Family History Reviewed: Yes Children Family History Reviewed: Yes Sibling(s) Family History Reviewed.: Yes Medication/Allergy Home Medications: No Home Medications 10/10/17 Allergies/Adverse Reactions: acetaminophen Allergy (Verified 10/09/17 22:27) Penicillins Allergy (Verified 10/09/17 22:27) Review of Systems ROS unobtainable: Due to endotracheal tube Physical Exam Vital Signs: Temp Pulse Resp BP Pulse Ox 97.9 F 100 18 123/84 98 10/10/17 08:02 10/10/17 08:00 10/10/17 08:02 10/10/17 08:02 10/10/17 08:28 Intake & Output 10/09/17 10/10/17 10/11/17 06:59 06:59 06:59 Intake Total 737 Output Total 1450 75 Balance -713 -75 Weight 78.3 kg General appearance: PRESENT: no acute distress, disheveled, well-developed, well -nourished. ABSENT: cooperative Head exam: PRESENT: atraumatic, normocephalic Eye exam: PRESENT: conjunctiva pale. ABSENT: EOMI, nystagmus, periorbital swelling, scleral icterus Mouth exam: PRESENT: dry mucosa, neck supple, tongue midline, other - ET tube Neck exam: ABSENT: carotid bruit, JVD, lymphadenopathy, thyromegaly, tracheal deviation, tracheostomy Respiratory exam: PRESENT: decreased breath sounds, prolonged expiratory phas, rhonchi, symmetrical, unlabored. ABSENT: rales, retraction, stridor, tachypnea Cardiovascular exam: PRESENT: RRR, +S1, +S2 Pulses: PRESENT: normal radial pulses GI/Abdominal exam: PRESENT: diminished bowel sounds, soft Extremities exam: ABSENT: clubbing, joint swelling, pedal edema Musculoskeletal exam: ABSENT: deformity, dislocation Neurological exam: ABSENT: awake, oriented to person Skin exam: PRESENT: dry, warm Results Laboratory Results: 10/10/17 01:34 10/10/17 06:30 10/10/17 10/10/17 10/10/17 01:15 01:34 01:34 WBC 27.1 H RBC 4.38 Hgb 13.4 Hct 41.4 MCV 95 MCH 30.6 MCHC 32.4 RDW 15.4 H Plt Count 259 Carbonic Acid HCO3/H2CO3 Ratio ABG pH ABG pCO2 ABG pO2 ABG HCO3 ABG O2 Saturation ABG Base Excess FiO2 Sodium Potassium Chloride Carbon Dioxide Anion Gap BUN Creatinine Est GFR ( Amer) Est GFR (Non-Af Amer) Glucose Lactic Acid Calcium Magnesium Total Bilirubin AST ALT Alkaline Phosphatase Total Protein Albumin Lipase 286.0 Urine Osmolality 368 10/10/17 10/10/17 10/10/17 01:34 01:34 03:20 WBC RBC Hgb Hct MCV MCH MCHC RDW Plt Count Carbonic Acid 1.69 H HCO3/H2CO3 Ratio 11:1 ABG pH 7.15 L* ABG pCO2 56.0 H ABG pO2 93.0 ABG HCO3 19.0 L ABG O2 Saturation 94.6 ABG Base Excess -10.3 FiO2 50% Sodium 151.8 H Potassium 4.2 D Chloride 115 H Carbon Dioxide 20 L Anion Gap 17 BUN 17 Creatinine 1.60 H Est GFR ( Amer) 45 L Est GFR (Non-Af Amer) 37 L Glucose 62 L Lactic Acid 1.7 Calcium 8.7 Magnesium 2.1 Total Bilirubin AST ALT Alkaline Phosphatase Total Protein Albumin Lipase Urine Osmolality 10/10/17 10/10/17 05:45 06:30 WBC RBC Hgb Hct MCV MCH MCHC RDW Plt Count Carbonic Acid 1.35 HCO3/H2CO3 Ratio 13:1 ABG pH 7.24 L ABG pCO2 44.8 ABG pO2 108.1 H ABG HCO3 18.8 L ABG O2 Saturation 97.1 ABG Base Excess -8.3 FiO2 40% Sodium 149.6 H Potassium 3.6 Chloride 114 H Carbon Dioxide 19 L Anion Gap 17 BUN 21 H Creatinine 1.32 H Est GFR ( Amer) 56 L Est GFR (Non-Af Amer) 47 L Glucose 99 Lactic Acid Calcium 8.4 Magnesium Total Bilirubin 0.3 AST 122 H ALT 103 H Alkaline Phosphatase 78 Total Protein 6.4 Albumin 3.7 Lipase Urine Osmolality 10/10/17 09:02 Creatine Kinase 1158 H Impressions: Chest X-Ray 10/09/17 20:46 IMPRESSION: Endotracheal tube tip overlies the mid trachea, approximately 4.5 cm above the level of the dandre. Nasogastric catheter tip overlies the body of the stomach, side port is near the GE junction. No acute cardiopulmonary finding otherwise. Renal Ultrasound 10/10/17 00:00 IMPRESSION: 1. Cholelithiasis with gallbladder wall thickening. These findings could be seen with acute cholecystitis. 2. Mild bilateral hydronephrosis, greater on the right than the left. 3. Increased renal cortical echogenicity. This could be seen with medical renal disease. Abdomen Ultrasound 10/10/17 04:42 IMPRESSION: 1. Cholelithiasis with gallbladder wall thickening. These findings could be seen with acute cholecystitis. 2. Mild bilateral hydronephrosis, greater on the right than the left. 3. Increased renal cortical echogenicity. This could be seen with medical renal disease. Assessment & Plan - Diagnosis (1) Agitation Is this a current diagnosis for this admission?: Yes (2) Drug induced delusional state Is this a current diagnosis for this admission?: Yes (3) SIRS (systemic inflammatory response syndrome) Is this a current diagnosis for this admission?: Yes (4) Acute kidney injury Is this a current diagnosis for this admission?: Yes (5) Bipolar 1 disorder with moderate gary Is this a current diagnosis for this admission?: Yes (6) Sepsis Is this a current diagnosis for this admission?: Yes - Time Total Critical Time (Minutes): 55
[2017-10-10] MEDS: MIDAZOLAM HCL 50 MG/100 ML RTUINJ IV PRN (14:22)
[2017-10-10] MEDS: MEROPENEM 1 GM in NORMAL SALINE 50 ML IV SCH ×2 (14:23→21:08)
[2017-10-10 14:49] LABS: ARTERIAL BLOOD BASE EXCESS -4.9 mmol/L; ARTERIAL BLOOD HCO3 19.3 mmol/L (20-26); ARTERIAL BLOOD PCO2 33.3 mmHg (35-45); ARTERIAL BLOOD PH 7.38 (7.35-7.45); ARTERIAL BLOOD PO2 153.4 mmHg (80-100); ARTERIAL BLOOD TOTAL CO2 20.4 mmol/L (21-25)
[2017-10-10 14:50] LABS: ARTERIAL BLOOD FIO2 35%
[2017-10-10 16:24] LABS: CREATINE KINASE MB 31.8 ng/mL (<4.55)
[2017-10-10 16:37] LABS: TROPONIN I 1.06 ng/mL
[2017-10-10] MEDS ORDERED: DEXAMETHASONE SOD PHOSPHATE INJ 4 MG/1 ML VIAL ONE (16:47)
[2017-10-10] MEDS ORDERED: LEVALBUTEROL HCL NEB 1.25 MG/3 ML AMPUL NEB ONE ×2 (16:49→17:00)
[2017-10-10] MEDS ORDERED: DEXAMETHASONE SOD PHOS INJ 10 MG/1 ML VIAL IV ONE (17:00)
--- NOTE | 2017-10-10 18:18 | RADIOLOGY REPORT (SQ) ---
EXAM DESCRIPTION: CT HEAD WITHOUT COMPLETED DATE/TIME: 10/10/2017 6:04 pm REASON FOR STUDY: altered mental status. COMPARISON: None. TECHNIQUE: Axial images acquired through the brain without intravenous contrast. Images reviewed wi th bone, brain and subdural windows. Additional sagittal and coronal reconstructions were generated. Images stored on PACS. All CT scanners at this facility use dose modulation, iterative reconstruction, and/or weight based d osing when appropriate to reduce radiation dose to as low as reasonably achievable (ALARA). [facility]: Dose Right [facility]: CareDose [facility]: Dose Right [facility]: Teradose 4D [facility]: Smart nfon RADIATION DOSE: CT Rad equipment meets quality standard of care and radiation dose reduction techniq ues were employed. CTDIvol: 53.2 mGy. DLP: 964 mGy-cm. mGy. LIMITATIONS: None. FINDINGS: VENTRICLES: Normal size and contour. CEREBRUM: No masses. No hemorrhage. No midline shift. No evidence for acute infarction. Normal gra y/white matter differentiation. No areas of low density in the white matter. CEREBELLUM: No masses. No hemorrhage. No alteration of density. No evidence for acute infarction. EXTRAAXIAL SPACES: No fluid collections. No masses. ORBITS AND GLOBE: No intra- or extraconal masses. Normal contour of globe without masses. CALVARIUM: No fracture. PARANASAL SINUSES: No fluid or mucosal thickening. SOFT TISSUES: No mass or hematoma. OTHER: No other significant finding. IMPRESSION: NORMAL BRAIN CT WITHOUT CONTRAST. EVIDENCE OF ACUTE STROKE: NO. COMMENT: Quality ID # [id number]: Final reports with documentation of one or more dose reduction techniques (e.g., Automated exposure control, adjustment of the mA and/or kV according to patient size, use of iterative reconstruction technique) TECHNICAL DOCUMENTATION: JOB ID: [id number] [employer]- All Rights Reserved Reading location - IP/workstation name: [email or web address]
--- NOTE | 2017-10-10 19:34 | EKG REPORT ---
SEVERITY:- ABNORMAL ECG - SINUS RHYTHM PROLONGED QT INTERVAL : Confirmed by: Zachary Ruiz MD 10-Oct-2017 19:33:42
[2017-10-10 20:20] LABS: ARTERIAL BLOOD BASE EXCESS -4.1 mmol/L; ARTERIAL BLOOD FIO2 ROOM AIR; ARTERIAL BLOOD H2CO3 0.86 mmol/L (1.05-1.35); ARTERIAL BLOOD HCO3 18.8 mmol/L (20-26); ARTERIAL BLOOD O2 SATURATION 97.9 % (94-98); ARTERIAL BLOOD PCO2 28.5 mmHg (35-45); ARTERIAL BLOOD PH 7.44 (7.35-7.45); ARTERIAL BLOOD TOTAL CO2 19.7 mmol/L (21-25)
[2017-10-10] MEDS ORDERED: METRONIDAZOLE 500 MG/NS RTU 100 ML IV SCH (21:00)
--- NOTE | 2017-10-10 21:02 | Progress Note ---
Provider Note Provider Note: Patient still has low-grade fever Leukocytosis is persistent actually worsening with a white blood count of 27.1 tonight Ultrasound of the abdomen is suggestive of acute cholecystitis with gallstone and gallbladder wall thickening Patient is is now on meropenem and vancomycin ; we will continue these antibiotics Schedule the patient for a HIDA scan in a.m. to confirm were exclude acute cholecystitis Repeat labs in a.m. CBC and differential CRP sed rate LFTs
--- NOTE | 2017-10-10 21:06 | PDOC PROGRESS REPORT ---
Subjective Progress Note for:: 10/10/17 Subjective:: Patient is when examined was still intubated mechanically ventilated Family is at the bedside her is present We had a long discussion with patient's states that Melba has had in the past following problems Bipolar disorder; depression; opiate dependency Patient has a long history of opiate use-oxycodone and heroin- She has been on methadone She has chronic history of depression and PTSD She has never been admitted for drug overdose On Tuesday patient went [place] [employer] with her family 3-year-old child Upon return she did cook lunch Patient's is unaware of recent emotional issues and drug use Reason For Visit: POSSIBLE SEROTONIN SYNDROME/ DRUG OVERDOSE Physical Exam Vital Signs: Temp Pulse Resp BP Pulse Ox 99.5 F 88 25 H 134/93 H 99 10/10/17 18:00 10/10/17 18:00 10/10/17 18:05 10/10/17 18:05 10/10/17 18:04 Intake & Output 10/09/17 10/10/17 10/11/17 00:59 00:59 00:59 Intake Total 1532 Output Total 2710 Balance -1178 Weight 73.8 kg 78.3 kg General appearance: PRESENT: other - intubated/sedated. Eye exam: PRESENT: other - dilated pupils, no reactive to light at this time. Mouth exam: PRESENT: other - intubated. Neck exam: ABSENT: JVD Respiratory exam: PRESENT: decreased breath sounds. ABSENT: rales, rhonchi, wheezes Cardiovascular exam: PRESENT: RRR, +S1, +S2 Pulses: PRESENT: normal dorsalis pedis pul GI/Abdominal exam: PRESENT: normal bowel sounds, soft. ABSENT: distended, guarding, rebound, tenderness Rectal exam: PRESENT: deferred Extremities exam: PRESENT: other. ABSENT: pedal edema - the patient is on Vecuronium drip. Musculoskeletal exam: PRESENT: other - the patient is on Vecuronium drip. Neurological exam: PRESENT: other - intubated and sedated. she is on Vecuronium drip (unable to assess reflexes). Skin exam: PRESENT: dry, intact, warm. ABSENT: rash Results Laboratory Results: 10/10/17 01:34 10/10/17 06:30 10/10/17 10/10/17 10/10/17 01:15 01:34 01:34 WBC 27.1 H RBC 4.38 Hgb 13.4 Hct 41.4 MCV 95 MCH 30.6 MCHC 32.4 RDW 15.4 H Plt Count 259 Carbonic Acid HCO3/H2CO3 Ratio ABG pH ABG pCO2 ABG pO2 ABG HCO3 ABG O2 Saturation ABG Base Excess FiO2 Sodium Potassium Chloride Carbon Dioxide Anion Gap BUN Creatinine Est GFR ( Amer) Est GFR (Non-Af Amer) Glucose Lactic Acid Calcium Magnesium Total Bilirubin AST ALT Alkaline Phosphatase Total Protein Albumin Lipase 286.0 Urine Osmolality 368 10/10/17 10/10/17 10/10/17 01:34 01:34 03:20 WBC RBC Hgb Hct MCV MCH MCHC RDW Plt Count Carbonic Acid 1.69 H HCO3/H2CO3 Ratio 11:1 ABG pH 7.15 L* ABG pCO2 56.0 H ABG pO2 93.0 ABG HCO3 19.0 L ABG O2 Saturation 94.6 ABG Base Excess -10.3 FiO2 50% Sodium 151.8 H Potassium 4.2 D Chloride 115 H Carbon Dioxide 20 L Anion Gap 17 BUN 17 Creatinine 1.60 H Est GFR ( Amer) 45 L Est GFR (Non-Af Amer) 37 L Glucose 62 L Lactic Acid 1.7 Calcium 8.7 Magnesium 2.1 Total Bilirubin AST ALT Alkaline Phosphatase Total Protein Albumin Lipase Urine Osmolality 10/10/17 10/10/17 10/10/17 05:45 06:30 10:19 WBC RBC Hgb Hct MCV MCH MCHC RDW Plt Count Carbonic Acid 1.35 HCO3/H2CO3 Ratio 13:1 ABG pH 7.24 L ABG pCO2 44.8 ABG pO2 108.1 H ABG HCO3 18.8 L ABG O2 Saturation 97.1 ABG Base Excess -8.3 FiO2 40% Sodium 149.6 H Potassium 3.6 Chloride 114 H Carbon Dioxide 19 L Anion Gap 17 BUN 21 H Creatinine 1.32 H Est GFR ( Amer) 56 L Est GFR (Non-Af Amer) 47 L Glucose 99 Lactic Acid 1.2 Calcium 8.4 Magnesium Total Bilirubin 0.3 AST 122 H ALT 103 H Alkaline Phosphatase 78 Total Protein 6.4 Albumin 3.7 Lipase Urine Osmolality 10/10/17 10/10/17 14:30 20:12 WBC RBC Hgb Hct MCV MCH MCHC RDW Plt Count Carbonic Acid 1.00 L 0.86 L HCO3/H2CO3 Ratio 19:1 21:1 ABG pH 7.38 7.44 ABG pCO2 33.3 L 28.5 L ABG pO2 153.4 H 101.0 H ABG HCO3 19.3 L 18.8 L ABG O2 Saturation 99.0 H 97.9 ABG Base Excess -4.9 -4.1 FiO2 35% ROOM AIR Sodium Potassium Chloride Carbon Dioxide Anion Gap BUN Creatinine Est GFR ( Amer) Est GFR (Non-Af Amer) Glucose Lactic Acid Calcium Magnesium Total Bilirubin AST ALT Alkaline Phosphatase Total Protein Albumin Lipase Urine Osmolality 10/10/17 10/10/17 10/10/17 09:02 09:02 15:30 Creatine Kinase 1158 H 2490 H CK-MB (CK-2) Troponin I 1.040 10/10/17 15:30 Creatine Kinase CK-MB (CK-2) 31.80 H Troponin I 1.060 Impressions: Head CT 10/10/17 00:00 IMPRESSION: NORMAL BRAIN CT WITHOUT CONTRAST. EVIDENCE OF ACUTE STROKE: NO. Renal Ultrasound 10/10/17 00:00 IMPRESSION: 1. Cholelithiasis with gallbladder wall thickening. These findings could be seen with acute cholecystitis. 2. Mild bilateral hydronephrosis, greater on the right than the left. 3. Increased renal cortical echogenicity. This could be seen with medical renal disease. Abdomen Ultrasound 10/10/17 04:42 IMPRESSION: 1. Cholelithiasis with gallbladder wall thickening. These findings could be seen with acute cholecystitis. 2. Mild bilateral hydronephrosis, greater on the right than the left. 3. Increased renal cortical echogenicity. This could be seen with medical renal disease. Chest X-Ray 10/10/17 12:55 IMPRESSION: Satisfactory position of right jugular central line. No pneumothorax. Assessment & Plan - Diagnosis (2) History of drug abuse Is this a current diagnosis for this admission?: Yes (3) Sepsis Qualifiers: Sepsis type: sepsis due to unspecified organism Qualified Code(s): A41.9 - Sepsis, unspecified organism Is this a current diagnosis for this admission?: Yes (4) Narcotic addiction Is this a current diagnosis for this admission?: Yes (5) Rhabdomyolysis Is this a current diagnosis for this admission?: Yes (6) Elevated troponin Is this a current diagnosis for this admission?: Yes (7) Acute renal failure Is this a current diagnosis for this admission?: Yes (8) Abnormal abdominal ultrasound Is this a current diagnosis for this admission?: Yes - Time Time Spent with patient: Patient is febrile with marked leukocytosis She has an abnormal ultrasound of the abdomen with mild hydronephrosis and gallstone with possible acute cholecystitis Chest x-ray is unremarkable Urinalysis unremarkable We will continue meropenem and vancomycin Continue hydration Follow-up CPK Troponins are elevated likely because of increased CPK; noted that CPK-MB is normal We will repeat an EKG in a.m. Follow-up renal function CT abdomen and pelvis and HIDA scan to be performed in a.m. Patient likely will be extubated as per Dr. Calderon Psychiatric consult will be obtained; patient will have to be IVC if she wishes to leave Time Spent with patient: 35 or more minutes
[2017-10-10] MEDS: VANCOMYCIN HCL 750 MG in DEXTROSE 5%-WATER 250 ML IV SCH (21:09)
[2017-10-10] MEDS ORDERED: LEVOFLOXACIN 750 MG/D5W RTU 750 MG/150 ML RTUPB IV SCH (22:00)
[2017-10-10 22:08] LABS: CREATINE KINASE MB 35.4 ng/mL (<4.55)
[2017-10-10 22:13] LABS: TROPONIN I 1.14 ng/mL
[2017-10-10] MEDS: NORMAL SALINE 1000 ML 1,000 ML IV PRN (22:43)
[2017-10-10] MEDS ORDERED: NICOTINE 21 MG/24 HR PATCH.TD24 TD ONE (22:45)
[2017-10-11] MEDS: ACETAMINOPHEN 325 MG TABLET PO PRN ×2 (01:59→19:32)
[2017-10-11 02:57] LABS: CREATINE KINASE MB 31.5 ng/mL (<4.55)
[2017-10-11 03:05] LABS: TROPONIN I 0.991 ng/mL
[2017-10-11] MEDS: NORMAL SALINE 1000 ML 1,000 ML IV PRN (03:51)
[2017-10-11] MEDS: MEROPENEM 1 GM in NORMAL SALINE 50 ML IV SCH ×2 (05:14→14:30)
[2017-10-11 05:51] LABS: ABSOLUTE LYMPHOCYTES (AUTO) 0.6 10^3/uL (0.5-4.7); ABSOLUTE MONOCYTES (AUTO) 0.3 10^3/uL (0.1-1.4); BASOPHILS % (AUTO) 0.1 % (0-2); HEMATOCRIT 34.7 % (36.0-47.0); HEMOGLOBIN 11.6 g/dL (12.0-15.5); LYMPHOCYTES % (AUTO) 5.8 % (13-45); MEAN CORPUSCULAR HEMOGLOBIN 30.6 pg (27.0-33.4); MEAN CORPUSCULAR HGB CONC 33.4 g/dL (32.0-36.0); MEAN CORPUSCULAR VOLUME 92 fl (80-97); MONOCYTES % (AUTO) 2.5 % (3-13); PLATELET COUNT 186 10^3/uL (150-450); RED BLOOD COUNT 3.78 10^6/uL (3.72-5.28); SEGMENTED NEUTROPHILS % (AUTO) 91.6 % (42-78); TOTAL CELLS COUNTED % (AUTO) 100 %; WHITE BLOOD COUNT 10.9 10^3/uL (4.0-10.5)
[2017-10-11 05:53] LABS: INTERNATIONAL RATION (INR) 1.36; PROTHROMBIN TIME 17.4 SEC (11.4-15.4)
[2017-10-11 05:58] LABS: ALANINE AMINOTRANSFERASE 603 U/L (9-52); ALBUMIN 3.2 g/dL (3.5-5.0); ALKALINE PHOSPHATASE 65 U/L (38-126); ANION GAP 13 (5-19); ASPARTATE AMINO TRANSFERASE 618 U/L (14-36); BILIRUBIN,DIRECT 0.2 mg/dL (0.0-0.4); BILIRUBIN,TOTAL 0.3 mg/dL (0.2-1.3); BLOOD UREA NITROGEN 15 mg/dL (7-20); CALCIUM 8.2 mg/dL (8.4-10.2); CARBON DIOXIDE 21 mmol/L (22-30); CHLORIDE 113 mmol/L (98-107); GLUCOSE 109 mg/dL (75-110); SODIUM 147.4 mmol/L (137-145); TOTAL PROTEIN 5.8 g/dL (6.3-8.2)
[2017-10-11 05:59] LABS: POTASSIUM 4.1 mmol/L (3.6-5.0)
--- NOTE | 2017-10-11 07:44 | EKG REPORT ---
SEVERITY:- NORMAL ECG - SINUS RHYTHM : Confirmed by: Zachary Ruiz MD 11-Oct-2017 07:44:05
--- NOTE | 2017-10-11 08:33 | RADIOLOGY REPORT (SQ) ---
EXAM DESCRIPTION: CHEST SINGLE VIEW COMPLETED DATE/TIME: 10/11/2017 6:52 am REASON FOR STUDY: resp failure COMPARISON: 10/10/2017, 10/09/2017 chest films EXAM PARAMETERS: NUMBER OF VIEWS: One view. TECHNIQUE: Single frontal radiographic view of the chest acquired. RADIATION DOSE: NA LIMITATIONS: None. FINDINGS: LUNGS AND PLEURA: No opacities, masses or pneumothorax. No pleural effusion. MEDIASTINUM AND HILAR STRUCTURES: No masses. Contour normal. HEART AND VASCULAR STRUCTURES: Heart normal in size. Normal vasculature. BONES: No acute findings. HARDWARE: Right jugular central line tip superior vena cava. OTHER: No other significant finding. IMPRESSION: Endotracheal, nasogastric tubes have been removed. No focal infiltrates Right jugular central line in good positioning TECHNICAL DOCUMENTATION: JOB ID: [id number]- All Rights Reserved Reading location - IP/workstation name: [email or web address]
[2017-10-11 08:55] LABS: CREATINE KINASE MB 25.6 ng/mL (<4.55)
[2017-10-11 09:01] LABS: TROPONIN I 0.754 ng/mL
[2017-10-11 09:39] LABS: HEPATITIS A AB IGM Negative (Negative); HEPATITS B SURFACE ANTIGEN Negative (Negative)
[2017-10-11 09:50] LABS: HEPATITIS B CORE AB IGM Negative (Negative); HEPATITIS B SURFACE AB QUAL Reactive (.)
[2017-10-11] MEDS: PANTOPRAZOLE SODIUM 40 MG VIAL IV SCH (11:18)
[2017-10-11] MEDS: VANCOMYCIN HCL 750 MG in DEXTROSE 5%-WATER 250 ML IV SCH (11:19)
[2017-10-11] MEDS: NICOTINE 21 MG/24 HR PATCH.TD24 TD SCH (11:19)
--- NOTE | 2017-10-11 12:58 | RADIOLOGY REPORT (SQ) ---
EXAM DESCRIPTION: NM HIDA SCAN COMPLETED DATE/TIME: 10/11/2017 11:19 am REASON FOR STUDY: fever leukocytosis ? acute cholecystitis COMPARISON: ABDOMINAL ULTRASOUND, BILATERAL RENAL ULTRASOUND 10/10/2017 RADIONUCLIDE AND DOSE: DOSAGE RADIONUCLIDE: 5.0 millicuries Tc99m Mebrofenin. DOSAGE MORPHINE: Not required. The route of agent administration: Intravenous TECHNIQUE: Serial imaging right upper quadrant up to 60 minutes following injection of radionuclide. Patient imaged AP and Right Lateral. LIMITATIONS: None. FINDINGS: LIVER: Normal visualization without areas of photopenia. INTRA-HEPATIC BILE DUCTS: Normal visualization COMMON BILE DUCT: Normal visualization GALLBLADDER: Normal visualization. OTHER: No other significant finding. IMPRESSION: No scintigraphic evidence of cystic duct or common duct obstruction TECHNICAL DOCUMENTATION: JOB ID: [id number] [employer]- All Rights Reserved Reading location - IP/workstation name: [email or web address]
--- NOTE | 2017-10-11 14:54 | PDOC PROGRESS REPORT ---
Subjective Progress Note for:: 10/11/17 Subjective:: Patient was admitted with respiratory failure. She was successfully extubated yesterday and is currently maintained respiration. It is felt that patient overdosed. There is also a possible serotonin syndrome Reason For Visit: POSSIBLE SEROTONIN SYNDROME/ DRUG OVERDOSE Physical Exam Vital Signs: Temp Pulse Resp BP Pulse Ox 98.2 F 77 26 H 118/80 94 10/11/17 14:45 10/11/17 08:00 10/11/17 14:45 10/11/17 14:15 10/11/17 14:45 Intake & Output 10/10/17 10/11/17 10/12/17 06:59 06:59 06:59 Intake Total 737 2513 Output Total 1450 1935 435 Balance -713 578 -435 Weight 78.3 kg 72.9 kg General appearance: PRESENT: no acute distress Head exam: PRESENT: atraumatic, normocephalic Eye exam: PRESENT: conjunctiva pink, EOMI, PERRLA. ABSENT: scleral icterus Ear exam: PRESENT: normal external ear exam Neck exam: ABSENT: carotid bruit, JVD, lymphadenopathy, thyromegaly Respiratory exam: PRESENT: clear to auscultation fuentes. ABSENT: rales, rhonchi, wheezes Cardiovascular exam: PRESENT: RRR. ABSENT: diastolic murmur, rubs, systolic murmur GI/Abdominal exam: PRESENT: normal bowel sounds, soft. ABSENT: distended, guarding, mass, organolmegaly, rebound, tenderness Rectal exam: PRESENT: deferred Extremities exam: PRESENT: full ROM. ABSENT: calf tenderness, clubbing, pedal edema Neurological exam: PRESENT: alert, awake, oriented to person, oriented to time, oriented to situation Psychiatric exam: PRESENT: appropriate affect, normal mood. ABSENT: homicidal ideation, suicidal ideation Results Laboratory Results: 10/11/17 05:15 10/11/17 05:15 10/10/17 10/11/17 10/11/17 20:12 05:15 05:15 WBC 10.9 H RBC 3.78 Hgb 11.6 L Hct 34.7 L MCV 92 MCH 30.6 MCHC 33.4 RDW 15.0 H Plt Count 186 Seg Neutrophils % 91.6 H Lymphocytes % 5.8 L Monocytes % 2.5 L Eosinophils % 0.0 Basophils % 0.1 Absolute Neutrophils 10.0 H Absolute Lymphocytes 0.6 Absolute Monocytes 0.3 Absolute Eosinophils 0.0 Absolute Basophils 0.0 Carbonic Acid 0.86 L HCO3/H2CO3 Ratio 21:1 ABG pH 7.44 ABG pCO2 28.5 L ABG pO2 101.0 H ABG HCO3 18.8 L ABG O2 Saturation 97.9 ABG Base Excess -4.1 FiO2 ROOM AIR Sodium 147.4 H Potassium 4.1 Chloride 113 H Carbon Dioxide 21 L Anion Gap 13 BUN 15 Creatinine 1.00 Est GFR ( Amer) > 60 Est GFR (Non-Af Amer) > 60 Glucose 109 Lactic Acid Calcium 8.2 L Magnesium 2.1 Total Bilirubin 0.3 AST 618 H ALT 603 H Alkaline Phosphatase 65 Total Protein 5.8 L Albumin 3.2 L 10/11/17 05:15 WBC RBC Hgb Hct MCV MCH MCHC RDW Plt Count Seg Neutrophils % Lymphocytes % Monocytes % Eosinophils % Basophils % Absolute Neutrophils Absolute Lymphocytes Absolute Monocytes Absolute Eosinophils Absolute Basophils Carbonic Acid HCO3/H2CO3 Ratio ABG pH ABG pCO2 ABG pO2 ABG HCO3 ABG O2 Saturation ABG Base Excess FiO2 Sodium Potassium Chloride Carbon Dioxide Anion Gap BUN Creatinine Est GFR ( Amer) Est GFR (Non-Af Amer) Glucose Lactic Acid 1.6 Calcium Magnesium Total Bilirubin AST ALT Alkaline Phosphatase Total Protein Albumin 10/10/17 10/10/17 10/10/17 09:02 09:02 15:30 Creatine Kinase 1158 H 2490 H CK-MB (CK-2) Troponin I 1.040 10/10/17 10/10/17 10/10/17 15:30 21:15 21:15 Creatine Kinase 2919 H CK-MB (CK-2) 31.80 H 35.40 H Troponin I 1.060 1.140 10/11/17 10/11/17 10/11/17 02:13 02:13 08:05 Creatine Kinase 2687 H 1487 H CK-MB (CK-2) 31.50 H Troponin I 0.991 10/11/17 08:05 Creatine Kinase CK-MB (CK-2) 25.60 H Troponin I 0.754 Impressions: Head CT 10/10/17 00:00 IMPRESSION: NORMAL BRAIN CT WITHOUT CONTRAST. EVIDENCE OF ACUTE STROKE: NO. Renal Ultrasound 10/10/17 00:00 IMPRESSION: 1. Cholelithiasis with gallbladder wall thickening. These findings could be seen with acute cholecystitis. 2. Mild bilateral hydronephrosis, greater on the right than the left. 3. Increased renal cortical echogenicity. This could be seen with medical renal disease. Abdomen Ultrasound 10/10/17 04:42 IMPRESSION: 1. Cholelithiasis with gallbladder wall thickening. These findings could be seen with acute cholecystitis. 2. Mild bilateral hydronephrosis, greater on the right than the left. 3. Increased renal cortical echogenicity. This could be seen with medical renal disease. Chest X-Ray 10/11/17 06:00 IMPRESSION: Endotracheal, nasogastric tubes have been removed. No focal infiltrates Right jugular central line in good positioning Hepatobiliary Scan Nuclear Medicine 10/11/17 08:00 IMPRESSION: No scintigraphic evidence of cystic duct or common duct obstruction Assessment & Plan - Time Time Spent with patient: 15-24 minutes Medications reviewed and adjusted accordingly: Yes Anticipated discharge: Home Within: within 48 hours - Plan Summary Plan Summary: Acute hypoxemic respiratory failure secondary to drug overdose this appears to have resolved. Although patient is on antibiotics this likely is currently not indicated and I would discontinue them as there is no evidence of an infection. 2. Possible sepsis although as referenced above high leukocytosis on admission was likely systemic inflammatory response syndrome 3. Narcotic addiction patient counseled on drug abuse 4. Rhabdomyolysis continue fluids 5. Elevated troponin likely secondary to acute events. 6. Acute kidney injury from acute events 7. HIDA scan today reveals no evidence of acute cholecystitis. She had been febrile with marked leukocytosis failure. Will place on empiric antibiotics but will de-escalate current broad-spectrum antibiotics
[2017-10-11] MEDS: DEXTROSE 5%-1/2 NORMAL SALINE 1,000 ML IV PRN ×2 (15:00→20:04)
--- NOTE | 2017-10-11 15:07 | PSYCHOLOGICAL NOTE ---
Psych Note - Psych Note Psych Note: Reason for consult: Depression Contact Permissions: Patient's Trevor Chung [phone] ; Patient's father ( patient requests do not disclose patient's substance use history) Patient is a 31 year old female. Patient reports she has been feeling anxious. Patient reports she smokes weed when she is anxious. Patient reports she has a history of depression which she has experienced for the last 6 years. Patient reports she has never had an inpatient psychiatric stay. Patient reports she has not had any suicidal thoughts. Patient reports the doctor asked her that and she stated she did not take over take medications on purpose to hurt herself. Patient reports she has a two year old child at home, so she would not hurt herself. Patient reports she goes to [employer] 3 days a week. Patient reports that mental health has consent to speak with her . Patient reports she does not want any substance use history shared with her father because they have a strained relationship. Patient stated " I just don't want to upset my dad because he got a lot of medical issues going on himself". Patient reports at this time she just wants to eat and "that's about it". Patient reported when her father came back in the room to tell him everything was ok. Clinician had asked patient's and father to leave the room prior to the assessment. Clinician observed patient's glared at clinician and told clinician to leave the room and asked who clinician was, clinician stated clinical guest services assistant, patient's asked what is that and clinician stated behavioral health to come talk to patient. When patient's and patient's 's father was asked to leave clinician observed patient's mouthed the words " thank you" then glared at patient. patient gave consent to clinician to speak to patient's and he was brought back into the room and gave collateral information. Collateral information: Patient's Trevor Chung ( Present in room, after patient gave consent to include him in the assessment) Patient's reports he was angry with clinician stating "did you not check the chart, the chart says she aint do nothing intentional". Patient reports he has a daughter, and that he is not concerned for patient's safety ( regarding any history of mental health). Patient's reports the doctor had asked him if he wanted to "involuntary commit" patient and that he told the doctor no, and said he did not want her to be seen by "psych" or to get involuntary committed ( clinician did not mention involuntary commitment, this was solely brought up my patient's ). Patient's reports " psych has a negative connotation to it". Patient's reports " negative connotation is why I didn't want you to come here". Patient's reports he told the nurse to put in that in the note, that he did not want psych to see her because they didn't need it and people think the wrong thing when they here "behavioral health". 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 Patient's reports patient's drug use was in the past. Patient's reports clinician violated HIPPA when patient 's asked who clinician was and clinician stated "behavioral health". Patient's stated he was upset with being asked to leave right after that because it "looks suspicious", because patient and patient's father has a strained relationship because of their past. Patient's reports patient is now forgiving her father and he just came back in her life. Clinician asked patient's if he had any other concerns patient's replied " oh hell no".Patient's reports he does not want mental health to come back to see patient and talk to her. Diagnosis: Not enough information was provided , mental health to reassess at a later time. Impression/Plan: Please re-consult us once patient is medically cleared. At this time not enough information was provided due to patient's being fixated on patient receiving a mental health assessment as he was fearful of an involuntary commitment. During the assessment patient was guarded and did not want to discuss depression. Mental health to reassess at a later time. Clinician observed patient and patient's was upset and experiencing paranoia regarding mental health assessment. Clinician observed patient's and patient mentioned their 2 year old daughter several times, and was concerned that patient would be associated with substances ( "drugs") not medications. Patient's then replied to patient " your dad didn't hear anything about drugs so don't say anything" ( as patient's father was standing outside in the hallway further down during the assessment). Clinician observed before leaving, patient stated to her dad " dad I know you heard the word drug, its not what you think". Clinician observed patient's became angry and left the room. Clinician explained that there were no concerns , just checking in to see if she needed anything ( as requested by patient) and excused herself from the room. Consulted with Dr. Terry regarding the management and care of patient.
[2017-10-11 15:47] LABS: CREATINE KINASE MB 14.4 ng/mL (<4.55)
[2017-10-11 15:55] LABS: TROPONIN I 0.44 ng/mL
--- NOTE | 2017-10-11 18:22 | PDOC PROGRESS REPORT ---
Subjective Progress Note for:: 10/11/17 Subjective:: Extubated 24 hours stable Reason For Visit: POSSIBLE SEROTONIN SYNDROME/ DRUG OVERDOSE Physical Exam Vital Signs: Temp Pulse Resp BP Pulse Ox 98.1 F 83 20 91/65 L 94 10/11/17 08:30 10/11/17 08:00 10/11/17 08:30 10/11/17 08:00 10/11/17 08:30 Intake & Output 10/10/17 10/11/17 10/12/17 06:59 06:59 06:59 Intake Total 737 2513 Output Total 1450 1935 60 Balance -713 578 -60 Weight 78.3 kg 72.9 kg General appearance: PRESENT: no acute distress, cooperative, well-developed, well-nourished Head exam: PRESENT: atraumatic, normocephalic Eye exam: PRESENT: conjunctiva pale, EOMI. ABSENT: nystagmus, periorbital swelling, scleral icterus Mouth exam: PRESENT: moist, neck supple. ABSENT: tongue midline Teeth exam: PRESENT: dental tenderness Neck exam: ABSENT: carotid bruit, JVD, lymphadenopathy, thyromegaly, tracheal deviation, tracheostomy Respiratory exam: PRESENT: decreased breath sounds, rales, retraction, rhonchi, stridor, symmetrical, unlabored. ABSENT: tachypnea Cardiovascular exam: PRESENT: RRR, +S1 Pulses: PRESENT: normal radial pulses GI/Abdominal exam: PRESENT: diminished bowel sounds, soft Extremities exam: PRESENT: full ROM. ABSENT: calf tenderness, clubbing, joint swelling Musculoskeletal exam: PRESENT: full ROM. ABSENT: deformity, dislocation Neurological exam: PRESENT: alert, awake Psychiatric exam: PRESENT: flat affect Skin exam: PRESENT: dry, warm Results Laboratory Results: 10/11/17 05:15 10/11/17 05:15 10/10/17 10/10/17 10/10/17 10:19 14:30 20:12 WBC RBC Hgb Hct MCV MCH MCHC RDW Plt Count Seg Neutrophils % Lymphocytes % Monocytes % Eosinophils % Basophils % Absolute Neutrophils Absolute Lymphocytes Absolute Monocytes Absolute Eosinophils Absolute Basophils Carbonic Acid 1.00 L 0.86 L HCO3/H2CO3 Ratio 19:1 21:1 ABG pH 7.38 7.44 ABG pCO2 33.3 L 28.5 L ABG pO2 153.4 H 101.0 H ABG HCO3 19.3 L 18.8 L ABG O2 Saturation 99.0 H 97.9 ABG Base Excess -4.9 -4.1 FiO2 35% ROOM AIR Sodium Potassium Chloride Carbon Dioxide Anion Gap BUN Creatinine Est GFR ( Amer) Est GFR (Non-Af Amer) Glucose Lactic Acid 1.2 Calcium Magnesium Total Bilirubin AST ALT Alkaline Phosphatase Total Protein Albumin 10/11/17 10/11/17 10/11/17 05:15 05:15 05:15 WBC 10.9 H RBC 3.78 Hgb 11.6 L Hct 34.7 L MCV 92 MCH 30.6 MCHC 33.4 RDW 15.0 H Plt Count 186 Seg Neutrophils % 91.6 H Lymphocytes % 5.8 L Monocytes % 2.5 L Eosinophils % 0.0 Basophils % 0.1 Absolute Neutrophils 10.0 H Absolute Lymphocytes 0.6 Absolute Monocytes 0.3 Absolute Eosinophils 0.0 Absolute Basophils 0.0 Carbonic Acid HCO3/H2CO3 Ratio ABG pH ABG pCO2 ABG pO2 ABG HCO3 ABG O2 Saturation ABG Base Excess FiO2 Sodium 147.4 H Potassium 4.1 Chloride 113 H Carbon Dioxide 21 L Anion Gap 13 BUN 15 Creatinine 1.00 Est GFR ( Amer) > 60 Est GFR (Non-Af Amer) > 60 Glucose 109 Lactic Acid 1.6 Calcium 8.2 L Magnesium 2.1 Total Bilirubin 0.3 AST 618 H ALT 603 H Alkaline Phosphatase 65 Total Protein 5.8 L Albumin 3.2 L 10/10/17 10/10/17 10/10/17 09:02 09:02 15:30 Creatine Kinase 1158 H 2490 H CK-MB (CK-2) Troponin I 1.040 10/10/17 10/10/17 10/10/17 15:30 21:15 21:15 Creatine Kinase 2919 H CK-MB (CK-2) 31.80 H 35.40 H Troponin I 1.060 1.140 10/11/17 10/11/17 02:13 02:13 Creatine Kinase 2687 H CK-MB (CK-2) 31.50 H Troponin I 0.991 Impressions: Head CT 10/10/17 00:00 IMPRESSION: NORMAL BRAIN CT WITHOUT CONTRAST. EVIDENCE OF ACUTE STROKE: NO. Renal Ultrasound 10/10/17 00:00 IMPRESSION: 1. Cholelithiasis with gallbladder wall thickening. These findings could be seen with acute cholecystitis. 2. Mild bilateral hydronephrosis, greater on the right than the left. 3. Increased renal cortical echogenicity. This could be seen with medical renal disease. Abdomen Ultrasound 10/10/17 04:42 IMPRESSION: 1. Cholelithiasis with gallbladder wall thickening. These findings could be seen with acute cholecystitis. 2. Mild bilateral hydronephrosis, greater on the right than the left. 3. Increased renal cortical echogenicity. This could be seen with medical renal disease. Chest X-Ray 10/11/17 06:00 IMPRESSION: Endotracheal, nasogastric tubes have been removed. No focal infiltrates Right jugular central line in good positioning Assessment & Plan - Diagnosis (1) Agitation Is this a current diagnosis for this admission?: Yes Plan: Improved (2) Drug induced delusional state Is this a current diagnosis for this admission?: Yes Plan: Resolving (3) SIRS (systemic inflammatory response syndrome) Is this a current diagnosis for this admission?: Yes Plan: Rapidly improving (4) Acute kidney injury Is this a current diagnosis for this admission?: Yes Plan: Is also resolving (5) Bipolar 1 disorder with moderate gary Is this a current diagnosis for this admission?: Yes (6) Sepsis Qualifiers: Sepsis type: sepsis due to unspecified organism Qualified Code(s): A41.9 - Sepsis, unspecified organism Is this a current diagnosis for this admission?: No - Time Total Critical Time (Minutes): 35
[2017-10-11] MEDS: HEPARIN SOD (PORCINE) 5,000 UNIT/ML 1 ML SYRINGE SUBCUT SCH (21:11)
[2017-10-11] MEDS ORDERED: FAMOTIDINE 20 MG TABLET PO SCH (22:00)
[2017-10-12] MEDS: DEXTROSE 5%-1/2 NORMAL SALINE 1,000 ML IV PRN ×2 (01:07→06:13)
[2017-10-12] MEDS: HEPARIN SOD (PORCINE) 5,000 UNIT/ML 1 ML SYRINGE SUBCUT SCH ×2 (05:21→15:38)
[2017-10-12 05:36] LABS: ABSOLUTE LYMPHOCYTES (AUTO) 2.1 10^3/uL (0.5-4.7); ABSOLUTE MONOCYTES (AUTO) 0.3 10^3/uL (0.1-1.4); ABSOLUTE NEUT (AUTO) 5.1 10^3/uL (1.7-8.2); BASOPHILS % (AUTO) 0.2 % (0-2); HEMATOCRIT 31.2 % (36.0-47.0); HEMOGLOBIN 10.5 g/dL (12.0-15.5); LYMPHOCYTES % (AUTO) 27.9 % (13-45); MEAN CORPUSCULAR HGB CONC 33.8 g/dL (32.0-36.0); MEAN CORPUSCULAR VOLUME 92 fl (80-97); PLATELET COUNT 133 10^3/uL (150-450); RED BLOOD COUNT 3.39 10^6/uL (3.72-5.28); RED CELL DISTRIBUTION WIDTH 15.1 % (11.5-14.0); SEGMENTED NEUTROPHILS % (AUTO) 67.9 % (42-78); TOTAL CELLS COUNTED % (AUTO) 100 %; WHITE BLOOD COUNT 7.5 10^3/uL (4.0-10.5)
[2017-10-12 05:47] LABS: ANION GAP 8 (5-19); BLOOD UREA NITROGEN 8 mg/dL (7-20); CARBON DIOXIDE 22 mmol/L (22-30); CHLORIDE 113 mmol/L (98-107); GLUCOSE 148 mg/dL (75-110); POTASSIUM 3.9 mmol/L (3.6-5.0); SODIUM 142.9 mmol/L (137-145)
[2017-10-12] MEDS: NICOTINE 21 MG/24 HR PATCH.TD24 TD SCH (09:20)
[2017-10-12] MEDS ORDERED: LEVOFLOXACIN 500 MG/D5W RTU 500 MG/100 ML RTUPB IV SCH (10:00)
--- NOTE | 2017-10-12 11:33 | PDOC PROGRESS REPORT ---
Subjective Progress Note for:: 10/12/17 Subjective:: stable Reason For Visit: POSSIBLE SEROTONIN SYNDROME/ DRUG OVERDOSE Physical Exam Vital Signs: Temp Pulse Resp BP Pulse Ox 97.7 F 80 0 L 122/86 H 100 10/12/17 06:00 10/11/17 17:32 10/12/17 06:00 10/12/17 05:16 10/11/17 17:32 Intake & Output 10/11/17 10/12/17 10/13/17 06:59 06:59 06:59 Intake Total 2513 3881 Output Total 1935 1960 Balance 578 1921 Weight 72.9 kg 76.9 kg General appearance: PRESENT: no acute distress, cooperative, disheveled, well- developed, well-nourished Head exam: PRESENT: atraumatic, normocephalic Eye exam: PRESENT: conjunctiva pale, EOMI. ABSENT: nystagmus, periorbital swelling, scleral icterus Mouth exam: PRESENT: moist, neck supple, tongue midline Neck exam: ABSENT: carotid bruit, JVD, lymphadenopathy, thyromegaly, tracheal deviation, tracheostomy Respiratory exam: PRESENT: decreased breath sounds, prolonged expiratory phas, rhonchi, unlabored. ABSENT: rales, retraction, stridor, tachypnea Cardiovascular exam: PRESENT: RRR, +S1, +S2 Pulses: PRESENT: normal radial pulses GI/Abdominal exam: PRESENT: diminished bowel sounds, soft Extremities exam: ABSENT: calf tenderness, clubbing, joint swelling Musculoskeletal exam: ABSENT: deformity, dislocation Neurological exam: PRESENT: alert, awake Psychiatric exam: PRESENT: normal mood Skin exam: PRESENT: dry, warm Results Laboratory Results: 10/12/17 05:25 10/12/17 05:25 10/12/17 10/12/17 05:25 05:25 WBC 7.5 RBC 3.39 L Hgb 10.5 L Hct 31.2 L MCV 92 MCH 31.0 MCHC 33.8 RDW 15.1 H Plt Count 133 L Seg Neutrophils % 67.9 Lymphocytes % 27.9 Monocytes % 4.0 Eosinophils % 0.0 Basophils % 0.2 Absolute Neutrophils 5.1 Absolute Lymphocytes 2.1 Absolute Monocytes 0.3 Absolute Eosinophils 0.0 Absolute Basophils 0.0 Sodium 142.9 Potassium 3.9 Chloride 113 H Carbon Dioxide 22 Anion Gap 8 BUN 8 Creatinine 0.84 Est GFR ( Amer) > 60 Est GFR (Non-Af Amer) > 60 Glucose 148 H Calcium 8.0 L 10/10/17 10/10/17 10/10/17 09:02 09:02 15:30 Creatine Kinase 1158 H 2490 H CK-MB (CK-2) Troponin I 1.040 10/10/17 10/10/17 10/10/17 15:30 21:15 21:15 Creatine Kinase 2919 H CK-MB (CK-2) 31.80 H 35.40 H Troponin I 1.060 1.140 10/11/17 10/11/17 10/11/17 02:13 02:13 08:05 Creatine Kinase 2687 H 1487 H CK-MB (CK-2) 31.50 H Troponin I 0.991 10/11/17 10/11/17 10/11/17 08:05 15:00 15:00 Creatine Kinase 1346 H CK-MB (CK-2) 25.60 H 14.40 H Troponin I 0.754 0.440 Impressions: Head CT 10/10/17 00:00 IMPRESSION: NORMAL BRAIN CT WITHOUT CONTRAST. EVIDENCE OF ACUTE STROKE: NO. Renal Ultrasound 10/10/17 00:00 IMPRESSION: 1. Cholelithiasis with gallbladder wall thickening. These findings could be seen with acute cholecystitis. 2. Mild bilateral hydronephrosis, greater on the right than the left. 3. Increased renal cortical echogenicity. This could be seen with medical renal disease. Abdomen Ultrasound 10/10/17 04:42 IMPRESSION: 1. Cholelithiasis with gallbladder wall thickening. These findings could be seen with acute cholecystitis. 2. Mild bilateral hydronephrosis, greater on the right than the left. 3. Increased renal cortical echogenicity. This could be seen with medical renal disease. Chest X-Ray 10/11/17 06:00 IMPRESSION: Endotracheal, nasogastric tubes have been removed. No focal infiltrates Right jugular central line in good positioning Hepatobiliary Scan Nuclear Medicine 10/11/17 08:00 IMPRESSION: No scintigraphic evidence of cystic duct or common duct obstruction Assessment & Plan - Diagnosis (1) Agitation Is this a current diagnosis for this admission?: No (2) Drug induced delusional state Is this a current diagnosis for this admission?: No (3) SIRS (systemic inflammatory response syndrome) Is this a current diagnosis for this admission?: No (4) Acute kidney injury Is this a current diagnosis for this admission?: No (5) Bipolar 1 disorder with moderate gary Is this a current diagnosis for this admission?: Yes (6) Sepsis Qualifiers: Sepsis type: sepsis due to unspecified organism Qualified Code(s): A41.9 - Sepsis, unspecified organism Is this a current diagnosis for this admission?: No - Time Total Critical Time (Minutes): 35
[2017-10-12 12:24] VITALS: BP 137/100
--- NOTE | 2017-10-12 16:51 | PDOC DISCHARGE SUMMARY ---
General - Admit/Disc Date/PCP Admission Date/Primary Care Provider: 10/09/17 22:22 KLAUS CLINTON MD Discharge Date: 10/12/17 - Discharge Diagnosis (1) Acute hypoxemic respiratory failure Is this a current diagnosis for this admission?: Yes (2) Agitation Is this a current diagnosis for this admission?: Yes (3) Bipolar 1 disorder with moderate gary Is this a current diagnosis for this admission?: Yes (4) Cocaine use Is this a current diagnosis for this admission?: Yes (5) Electrolyte abnormality Is this a current diagnosis for this admission?: Yes (6) Rhabdomyolysis Is this a current diagnosis for this admission?: Yes (7) SIRS (systemic inflammatory response syndrome) Is this a current diagnosis for this admission?: Yes (8) Serotonin syndrome Is this a current diagnosis for this admission?: Yes - Additional Information Discharge Diet: As Tolerated Discharge Activity: Activity As Tolerated Home Medications: No Home Medications 10/10/17 History of Present Illness History of Present Illness: BEBETO MOREL is a 31 year old female with history of drug abuse and ADHD was admitted with above-mentioned complaints. The patient is currently intubated so most of the history was obtained from the ED physician/notes. According to the ED physician, the patient was extremely agitated and flailing. A family member mentioned that her symptoms started after she "smoked a blunt. " Her sister at bedside said that she was not aware of her medical condition. She said that she was at her baseline this morning when she went to baptism, and she was told that she cooked lunch this afternoon. She also said that her sister some drug problem when she was living in [place] many years ago. In the ED, her temperature was 100.8 (up to 106.8), heart rate 150, respiratory rate 39, blood pressure 115/59 (up to 252/240 and down to 70/47 after intubation ), 95% on room air. Her WBC was 17.9 with hemoglobin of 13.9. UA was negative and her urine drug screen was positive for cocaine. A CXR was done which was unremarkable. The patient received 400 mg IM ketamine 1, 2 mg IV Versed 1, 4 mg IM Versed 1 with no significant improvement in her symptoms so she was intubated. She was started on propofol and Vecuronium drips. She has also been cooled down. Her temperature is currently down to 98.5, heart rate 99, blood pressure 122/75. Hospital Course Hospital Course: CPatient was admitted with extreme agitation requiring mechanical ventilation. She was thought to have possible serotonin syndrome with the drug ingestion other than cocaine although urine toxicology screen was positive for cocaine. Was monitored in the intensive care unit and consultation by executive admin was done. She was thought to have a systemic inflammatory response syndrome as she had leukocytosis as well as fever and tachycardia but there was no specific source of infection. This has since resolved. She was also found to be in acute kidney injury and received fluid aggressively with a kidney function now back to normal. She was acidotic as well as hyperkalemic but this has also resolved. Patient was extubated successfully and she has been hemodynamically stable. Attempts was made by psychiatry for full evaluation please see the consultation for full details. At this time patient has been hemodynamically fairly stable with no further interventions been planned she is been discharged home Physical Exam Vital Signs: Temp Pulse Resp BP Pulse Ox 97.7 F 72 28 H 137/100 H 97 10/12/17 12:00 10/12/17 12:00 10/12/17 12:00 10/12/17 12:00 10/12/17 12:00 Intake & Output 10/11/17 10/12/17 10/13/17 06:59 06:59 06:59 Intake Total 2513 3881 Output Total 1935 1960 650 Balance 578 1921 -650 Weight 72.9 kg 76.9 kg General appearance: PRESENT: no acute distress, cooperative Head exam: PRESENT: atraumatic Eye exam: PRESENT: conjunctiva pink, EOMI, PERRLA. ABSENT: scleral icterus Ear exam: PRESENT: normal external ear exam Mouth exam: PRESENT: moist, tongue midline Neck exam: ABSENT: carotid bruit, JVD, lymphadenopathy, thyromegaly Rectal exam: PRESENT: deferred Extremities exam: PRESENT: full ROM. ABSENT: calf tenderness, clubbing, pedal edema Musculoskeletal exam: PRESENT: ambulatory Neurological exam: PRESENT: alert, awake, oriented to person, oriented to place , oriented to time, oriented to situation, CN II-XII grossly intact. ABSENT: motor sensory deficit Psychiatric exam: PRESENT: appropriate affect Results Laboratory Results: 10/12/17 05:25 10/12/17 05:25 10/12/17 10/12/17 05:25 05:25 WBC 7.5 RBC 3.39 L Hgb 10.5 L Hct 31.2 L MCV 92 MCH 31.0 MCHC 33.8 RDW 15.1 H Plt Count 133 L Seg Neutrophils % 67.9 Lymphocytes % 27.9 Monocytes % 4.0 Eosinophils % 0.0 Basophils % 0.2 Absolute Neutrophils 5.1 Absolute Lymphocytes 2.1 Absolute Monocytes 0.3 Absolute Eosinophils 0.0 Absolute Basophils 0.0 Sodium 142.9 Potassium 3.9 Chloride 113 H Carbon Dioxide 22 Anion Gap 8 BUN 8 Creatinine 0.84 Est GFR ( Amer) > 60 Est GFR (Non-Af Amer) > 60 Glucose 148 H Calcium 8.0 L 10/10/17 10/10/17 10/10/17 09:02 09:02 15:30 Creatine Kinase 1158 H 2490 H CK-MB (CK-2) Troponin I 1.040 10/10/17 10/10/17 10/10/17 15:30 21:15 21:15 Creatine Kinase 2919 H CK-MB (CK-2) 31.80 H 35.40 H Troponin I 1.060 1.140 10/11/17 10/11/17 10/11/17 02:13 02:13 08:05 Creatine Kinase 2687 H 1487 H CK-MB (CK-2) 31.50 H Troponin I 0.991 10/11/17 10/11/17 10/11/17 08:05 15:00 15:00 Creatine Kinase 1346 H CK-MB (CK-2) 25.60 H 14.40 H Troponin I 0.754 0.440 Impressions: Head CT 10/10/17 00:00 IMPRESSION: NORMAL BRAIN CT WITHOUT CONTRAST. EVIDENCE OF ACUTE STROKE: NO. Renal Ultrasound 10/10/17 00:00 IMPRESSION: 1. Cholelithiasis with gallbladder wall thickening. These findings could be seen with acute cholecystitis. 2. Mild bilateral hydronephrosis, greater on the right than the left. 3. Increased renal cortical echogenicity. This could be seen with medical renal disease. Abdomen Ultrasound 10/10/17 04:42 IMPRESSION: 1. Cholelithiasis with gallbladder wall thickening. These findings could be seen with acute cholecystitis. 2. Mild bilateral hydronephrosis, greater on the right than the left. 3. Increased renal cortical echogenicity. This could be seen with medical renal disease. Chest X-Ray 10/11/17 06:00 IMPRESSION: Endotracheal, nasogastric tubes have been removed. No focal infiltrates Right jugular central line in good positioning Hepatobiliary Scan Nuclear Medicine 10/11/17 08:00 IMPRESSION: No scintigraphic evidence of cystic duct or common duct obstruction Qualifiers - * PATIENT BEING DISCHARGED WITH ANY OF THE FOLLOWING DIAGNOSIS: No Plan Time Spent: Less than 30 Minutes
--- NOTE | 2017-10-18 15:47 | Physician Advisory Note ---
Physician Advisor ProgressNote .: Pursuant to the plan for [facility], I have reviewed the medical record for this patient. Physician Advisor Statement: Zack states dx of "agitation". In other attending notes, pt is said to have "delirium", which is slightly more specific. Both these terms need further specification for appropriate coding, or you will not get credit for how sick your patient really was. Clarification currently needed in documentation: 1. Type/Cause of Acute Delirium needs to be spelled out - options include: A. "Acute Delirium, due to toxic/metabolic encephalopathy, due to serotonin syndrome from unknown ingestion + cocaine abuse", (as you know, SSRIs and MAOIs can produce Serotonin Syndrome, especially when combined with use of cocaine, dextromethorphan, venlafaxine, amphetamines, or Zyvox), or B. "Acute Delirium, due to toxic encephalopathy due to abuse of cocaine + unknown other drug(s)", or C. "Acute Delirium, due to metabolic encephalopathy due to " [ electrolyte abnormalities including hypernatremia, or ...] D. "Acute Delirium, due to bipolar I disorder with acute gary" *If documentation does not specify the underlying cause of delirium, the ICD-10 coding classification attributes it to a psychiatric origin (such as schizophrenia, gary, or rapid progression of dementia), with a correspondingly lower severity of illness, than if there is encephalopathy. Definitions of some of these terms are included below, for clarity. 2. When stating a patient likely had a drug overdose, please specify which agent(s), or type of agent(s), likely caused the overdose, if possible, such as: "Drug overdose of cocaine (+ suspected [SSRI?])", or "Drug overdose of cocaine", or "Drug overdose, suspect SSRI" (In this case, you may be able to cover #2 while documenting #1, depending on what phrases best describe your impression.) Thanks for your help! CK Specific definitions: A. Acute Metabolic Encephalopathy due to = AMS due to acute or chronic medical disease state, such as systemic metabolic or intracranial process, that is usually reversible when the underlying cause is corrected. Causes include fever, infection, dehydration, acidosis, sepsis, hypoxia, electrolyte imbalance , B. Acute Toxic Encephalopathy due to =AMS due to drug, poison, or toxin . Usually reversible. C. Acute Delirium due to =nonspecific disorientation/behavioral problem with a cause that can be psychiatric, encephalopathic, or intracranial. May show confusion, disorientation, agitation, inattention, .
== END 2017-10-12 17:43 | disposition home or self-care (01) | DRG 917 ==
LOC: ER 19:35 → EH 22:22 → ICU 23:28
PROVIDERS: ADMIT Internal Medicine Geriatric Medicine; ATTEND Internal Medicine Geriatric Medicine
PROC: 02HV33Z Insertion of Infusion Device into Superior Vena Cava, Percutaneous Approach (ICD-10-PCS; principal; 2017-10-09)
PROC: 0BH17EZ Insertion of Endotracheal Airway into Trachea, Via Natural or Artificial Opening (ICD-10-PCS; 2017-10-09)
PROC: 5A1935Z Respiratory Ventilation, Less than 24 Consecutive Hours (ICD-10-PCS; 2017-10-09)
DX: T40.5X2A Poisoning by cocaine, intentional self-harm, initial encounter (principal); R65.11 Systemic inflammatory response syndrome (SIRS) of non-infectious origin with acute organ dysfunction; J96.01 Acute respiratory failure with hypoxia; G92 Toxic encephalopathy; N17.9 Acute kidney failure, unspecified; M62.82 Rhabdomyolysis; E87.2 Acidosis; F31.12 Bipolar disorder, current episode manic without psychotic features, moderate; T50.992A Poisoning by other drugs, medicaments and biological substances, intentional self-harm, initial encounter; G25.70 Drug induced movement disorder, unspecified; F14.90 Cocaine use, unspecified, uncomplicated; Y92.9 Unspecified place or not applicable; F43.10 Post-traumatic stress disorder, unspecified; F90.9 Attention-deficit hyperactivity disorder, unspecified type; Z88.0 Allergy status to penicillin; Z88.6 Allergy status to analgesic agent; E87.5 Hyperkalemia; R50.2 Drug induced fever; R00.0 Tachycardia, unspecified; F17.200 Nicotine dependence, unspecified, uncomplicated; K80.20 Calculus of gallbladder without cholecystitis without obstruction; Z78.1 Physical restraint status
CPT/HCPCS: 36415; 70450; 71045; 76705; 76775; 78226; 80048; 80053; 80307; 81001; 82550; 82553; 82570; 82803; 82962; 83605; 83690; 83735; 83935; 84156; 84300; 84484; 84703; 85025; 85027; 85610; 85730; 86701; 86705; 86706; 86709; 87040; 87086; 87340; 87493; 93005; 93010; 93976; 94002; 94003; 99291; 99292; A9537; C1751; J1642; J1644; J2185; J2250; J2704; J3370; J3490; J7030; J7060; J7120; Q9969; S0164

== ENCOUNTER → 2017-10-21 | Outpatient (CLI) | payer MEDICAID ==
--- NOTE | 2017-10-21 10:52 | RADIOLOGY REPORT (SQ) ---
EXAM DESCRIPTION: C SP 4 OR 5 VIEWS COMPLETED DATE/TIME: 10/21/2017 9:47 am REASON FOR STUDY: NECK PAIN M54.2 CERVICALGIA COMPARISON: None. NUMBER OF VIEWS: Five views. TECHNIQUE: AP, lateral, obliques and odontoid radiographic images acquired of the cervical spine. LIMITATIONS: None. FINDINGS: MINERALIZATION: Normal. ALIGNMENT: Anatomic. VERTEBRAE: Vertebral bodies of normal height. DISCS: No significant osteophytes or sclerosis. Disc height maintained. FORAMINA: No osteophytes or foraminal narrowing. LATERAL AND POSTERIOR ELEMENTS: Facets, lateral masses and spinous processes without significant find ings. HARDWARE: None in the spine. SOFT TISSUES: No masses or calcifications. Lung apices clear. OTHER: No other significant finding. IMPRESSION: NO SIGNIFICANT RADIOGRAPHIC FINDING IN THE CERVICAL SPINE. TECHNICAL DOCUMENTATION: JOB ID: [id number] [employer]- All Rights Reserved Reading location - IP/workstation name: [email or web address]
== END ==
LOC: OD 09:16
PROVIDERS: ATTEND Family Medicine
DX: M54.2 Cervicalgia (principal)
CPT/HCPCS: 72050

== ENCOUNTER 2017-10-31 20:41 | Inpatient (IN) | payer OTHER, MEDICAID ==
[2017-10-31] MEDS ORDERED: NORMAL SALINE 1000 ML 1,000 ML IV ONE ×2 (20:54→21:21)
[2017-10-31] MEDS ORDERED: IBUPROFEN 600 MG TABLET PO ONE (21:00)
[2017-10-31 22:51] LABS: HEMATOCRIT 38.5 % (36.0-47.0); HEMOGLOBIN 12.7 g/dL (12.0-15.5); MEAN CORPUSCULAR HEMOGLOBIN 30.4 pg (27.0-33.4); MEAN CORPUSCULAR HGB CONC 32.9 g/dL (32.0-36.0); MEAN CORPUSCULAR VOLUME 92 fl (80-97); PLATELET COUNT 325 10^3/uL (150-450); RED BLOOD COUNT 4.18 10^6/uL (3.72-5.28); RED CELL DISTRIBUTION WIDTH 14.7 % (11.5-14.0); VENOUS BLOOD HCO3 17.4 mmol/L (20-32); VENOUS BLOOD PCO2 28.7 mmHg (35-63); VENOUS BLOOD PH 7.4 (7.30-7.42); WHITE BLOOD COUNT 26.9 10^3/uL (4.0-10.5)
[2017-10-31 23:08] LABS: ABSOLUTE LYMPHOCYTES# (MANUAL) 0.8 10^3/uL (0.5-4.7); ABSOLUTE MONOCYTES # (MANUAL) 0.8 10^3/uL (0.1-1.4); ABSOLUTE NEUTROPHILS# (MANUAL) 25.3 10^3/uL (1.7-8.2); BASOPHILS % (MANUAL) 0 % (0-2); EOSINOPHILS % (MANUAL) 0 % (0-6); LYMPHOCYTES % (MANUAL) 3 % (13-45); MONOCYTES % (MANUAL) 3 % (3-13); SEGMENTED NEUTROPHILS % (MAN) 94 % (42-78); TOTAL CELLS COUNTED 100
[2017-10-31 23:09] LABS: ANISOCYTOSIS SLIGHT; PLATELET COMMENT ADEQUATE
[2017-10-31 23:10] LABS: ALANINE AMINOTRANSFERASE 64 U/L (9-52); ALBUMIN 4.4 g/dL (3.5-5.0); ALKALINE PHOSPHATASE 91 U/L (38-126); ANION GAP 15 (5-19); ASPARTATE AMINO TRANSFERASE 41 U/L (14-36); BILIRUBIN,DIRECT 0.2 mg/dL (0.0-0.4); BILIRUBIN,TOTAL 0.2 mg/dL (0.2-1.3); BLOOD UREA NITROGEN 20 mg/dL (7-20); CALCIUM 9.9 mg/dL (8.4-10.2); CARBON DIOXIDE 18 mmol/L (22-30); CHLORIDE 110 mmol/L (98-107); CREATINE KINASE 97 U/L (30-135); GLUCOSE 100 mg/dL (75-110); POTASSIUM 3.2 mmol/L (3.6-5.0); SODIUM 143.3 mmol/L (137-145); TOTAL PROTEIN 6.9 g/dL (6.3-8.2)
[2017-10-31] MEDS ORDERED: ONDANSETRON HCL INJ/PF 4 MG/2 ML SDV IV ONE (23:16)
[2017-10-31 23:20] LABS: CREATINE KINASE MB 1.27 ng/mL (<4.55)
[2017-10-31 23:30] LABS: TROPONIN I 0.056 ng/mL
--- NOTE | 2017-11-01 00:17 | RADIOLOGY REPORT (SQ) ---
EXAM DESCRIPTION: Single view of the chest CLINICAL HISTORY: fever COMPARISON: 10/11/2017 FINDINGS: Single frontal view of the chest. Leads overlie the chest. The cardiomediastinal silhouette has normal size and contour. No consolidation, pneumothorax, or pleural effusion. No displaced rib fractures identified. Upper abdominal soft tissues are unremarkable. IMPRESSION: 1. No acute pulmonary process identified.
[2017-11-01 01:28] LABS: APPEARANCE,URINE CLOUDY; BILIRUBIN,URINE NEGATIVE (NEGATIVE); COLOR,URINE YELLOW; GLUCOSE, URINE NEGATIVE (NEGATIVE); KETONES,URINE TRACE mg/dL (NEGATIVE); LEUKOCYTE ESTERASE,URINE NEGATIVE (NEGATIVE); NITRITE,URINE NEGATIVE (NEGATIVE); PROTEIN,URINE 100 mg/dL (NEGATIVE); URINE SPECIFIC GRAVITY 1.023; UROBILINOGEN,URINE NEGATIVE mg/dL (<2.0)
--- NOTE | 2017-11-01 02:21 | ER Document Report ---
ED General - General Chief Complaint: Possible Overdose Stated Complaint: POSSIBLE OVERDOSE Time Seen by Provider: 10/31/17 20:59 Mode of Arrival: Medic Information source: Patient Notes: Patient is a 31-year-old female who presents after IV injection of 1 g of cocaine. EMS was called as patient was shaking, tachycardic and febrile. On my initial exam patient is alert and oriented and her only complaint is bilateral leg pain and low back pain which she states is chronic. Upon further questioning patient states that she always gets shaky when she injects cocaine however this time her shakes or worse. EMS reported to nursing staff the patient's heart rate was in the 160s and patient's temperature was 104. On arrival patient's temperature 100.1 and patient's heart rate in the 120s. She was not given Tylenol by EMS that she is allergic to it. Patient denies any fevers chills nausea or vomiting. Patient was recently admitted to our ICU for a cocaine overdose with marked leukocytosis and cardiac enzymes abnormalities. Patient reports that her only past medical history is current gallbladder disease for which she is pending surgery in a few weeks. Patient denies any other drug use other than the cocaine. TRAVEL OUTSIDE OF THE [place] IN LAST 30 DAYS: No - Related Data Allergies/Adverse Reactions: acetaminophen Allergy (Verified 10/09/17 22:27) Penicillins Allergy (Verified 10/09/17 22:27) Past Medical History - General Information source: Patient - Social History Smoking Status: Current Every Day Smoker Frequency of alcohol use: Heavy Drug Abuse: Cocaine Family History: Other Patient has suicidal ideation: No Patient has homicidal ideation: No - Past Medical History Cardiac Medical History: Denies: Hx Atrial Fibrillation, Hx Congestive Heart Failure, Hx Coronary Artery Disease, Hx DVT, Hx Heart Attack, Hx Hypercholesterolemia, Hx Hypertension, Hx Peripheral Vascular Disease, Hx Pulmonary Embolism Pulmonary Medical History: Denies: Hx Asthma, Hx Bronchitis, Hx COPD, Hx Pneumonia Renal/ Medical History: Denies: Hx Peritoneal Dialysis Psychiatric Medical History: Reports: Hx Attention Deficit Hyperactivity Disorder, Hx Bipolar Disorder, Hx Depression Past Surgical History: Reports: Other - unable to obtained at this time since the patient is intubated/sedated. - Immunizations Immunizations up to date: Yes Hx Diphtheria, Pertussis, Tetanus Vaccination: Yes Review of Systems - Review of Systems Constitutional: See HPI EENT: No symptoms reported Cardiovascular: See HPI Respiratory: No symptoms reported Gastrointestinal: No symptoms reported Genitourinary: No symptoms reported Female Genitourinary: No symptoms reported Musculoskeletal: No symptoms reported Skin: No symptoms reported Hematologic/Lymphatic: No symptoms reported Neurological/Psychological: No symptoms reported Physical Exam - Vital signs Vitals: Resp 13 10/31/17 20:46 - Notes Notes: PHYSICAL EXAMINATION: GENERAL: Ill-appearing, disheveled. HEAD: Atraumatic, normocephalic. EYES: Pupils equal round and reactive to light, extraocular movements intact. ENT: Nares patent, oropharynx clear without exudates. Dry mucous membranes. NECK: Normal range of motion, supple without lymphadenopathy LUNGS: Breath sounds clear to auscultation bilaterally and equal. No wheezes rales or rhonchi. HEART: Regular rate and rhythm without murmurs ABDOMEN: Soft, nontender, nondistended abdomen. No guarding, no rebound. No masses appreciated. Female : deferred Musculoskeletal: Normal range of motion, no pitting or edema. No cyanosis. NEUROLOGICAL: Cranial nerves grossly intact. Normal speech. Normal sensory, motor exams PSYCH: Flat mood/affect. SKIN: Warm, Dry, soiled heavily with dirt, normal turgor, puncture sites noted scattered across her feet as her upper extremities. Course - Re-evaluation Re-evalutation: 31-year-old female presents with complaint of IV cocaine ingestion. Initial report from EMS was that patient had a fever of greater than 104 and heart rate was in the 160s. Patient states that she called EMS and she was very shaky. On arrival to image patient's temperature is 100 and heart rate is 120. Patient is completely alert, oriented, cooperative and states that she has no complaints other than bilateral leg pain and back pain which is chronic for her. Patient reports that she mixed 1 g of cocaine into some water and injected it. Patient reports that she usually gets very shaky after she injects cocaine however this time she got scared and she got very shaky. Patient was recently admitted to our ICU for a similar situation of IV drug use however patient was very ill at that time and required intubation. Patient has remained normotensive throughout her stay and tachycardia has resolved after 2 L of IV fluids. Patient has remained afebrile. Patient has marked leukocytosis with a white count of 26.9. Chemistry reveals hypokalemia with a potassium of 3.2 as well as an elevated troponin of 0.056. I feel that the transient fever, tachycardia as well as her Leukocytosis are consistent with her stimulant use. There are no acute changes on the EKG. Consulted Dr. Weems who is very familiar with this patient as he is once recommended her last week. Patient and patient's spouse have asked multiple times when she will be discharged home. Explained to patient that we need to continue our workup to ensure that she does not have anything life-threatening such as endocarditis due to the IV drug use. Patient second troponin was mildly elevated at 0.072. Due to the elevation in her second troponin I will consult the hospitalist for admission. Patient does remain completely asymptomatic, denies any chest pain or shortness of breath. Patient's magnesium checked per hospitalist request, magnesium is 1.8. I will replace patient's potassium orally she has not had any episodes of vomiting. Dr. Vishal Mcadams, hospitalist agrees to accept patient under his service. Patient has remained hemodynamically stable during this emergency department stay patient is agreeable to our plan of care. - Vital Signs Vital signs: Temp Pulse Resp BP Pulse Ox 97.8 F 20 114/66 97 11/01/17 03:52 11/01/17 02:29 11/01/17 02:29 11/01/17 02:29 - Laboratory Result Diagrams: 10/31/17 22:34 10/31/17 22:34 Laboratory results interpreted by me: 10/31/17 10/31/17 10/31/17 22:34 22:34 22:34 WBC 26.9 H RDW 14.7 H Seg Neuts % (Manual) 94 H Lymphocytes % (Manual) 3 L Abs Neuts (Manual) 25.3 H VBG pCO2 28.7 L VBG HCO3 17.4 L Potassium 3.2 L Chloride 110 H Carbon Dioxide 18 L Creatinine 1.40 H Est GFR ( Amer) 53 L Est GFR (Non-Af Amer) 44 L AST 41 H ALT 64 H Urine Protein Urine Ketones 11/01/17 00:22 WBC RDW Seg Neuts % (Manual) Lymphocytes % (Manual) Abs Neuts (Manual) VBG pCO2 VBG HCO3 Potassium Chloride Carbon Dioxide Creatinine Est GFR ( Amer) Est GFR (Non-Af Amer) AST ALT Urine Protein 100 H Urine Ketones TRACE H Discharge - Discharge Clinical Impression: Cocaine abuse, Troponin level elevated Fever Qualifiers: Fever type: drug-induced Qualified Code(s): R50.2 - Drug induced fever Leukocytosis Qualifiers: Leukocytosis type: other Qualified Code(s): D72.828 - Other elevated white blood cell count Condition: Stable Disposition: ADMITTED OBSERVATION Admitting Provider: Hospitalist Unit Admitted: Telemetry
[2017-11-01] MEDS ORDERED: POTASSIUM CHLORIDE 10 MEQ CAPSULE.ER PO ONE (03:36)
[2017-11-01 04:37] LABS: URINE AMPHETAMINES SCREEN NEGATIVE; URINE BENZODIAZEPINES SCREEN NEGATIVE; URINE COCAINE SCREEN UNCONFIRMED POSITIVE; URINE MARIJUANA (THC) SCREEN NEGATIVE; URINE METHADONE SCREEN NEGATIVE; URINE PHENCYCLIDINE SCREEN NEGATIVE
[2017-11-01 05:29] LABS: URINE BARBITURATES SCREEN UNCONFIRMED POSITIVE
[2017-11-01] MEDS ORDERED: DIAZEPAM 2 MG TABLET PO SCH (06:00)
[2017-11-01] MEDS: HEPARIN SOD (PORCINE) 5,000 UNIT/ML 1 ML SYRINGE SUBCUT SCH ×3 (06:20→21:35)
--- NOTE | 2017-11-01 06:48 | PDOC H&P ---
History of Present Illness Admission Date/PCP: 11/01/17 06:39 JOSEPHINE DIMAS DO Patient complains of: Tachycardia History of Present Illness: BEBETO MOREL is a 31 year old female with a past medical history of polysubstance abuse and recent pneumonia. Patient presents approximately 4 hours after IV use of cocaine resulting in tachycardia and anxiety. In the emergency room she is found to be anxious, tachycardic with a prolonged QT interval. She is referred to the hospitalist for admission. Patient denies chest pain shortness of breath nausea vomiting. Past Medical History Cardiac Medical History: Denies: Atrial Fibrillation, Congestive Heart Failure, Coronary Artery Disease, DVT, Myocardial Infarction, Hyperlipidema, Hypertension, Peripheral Vascular Disease, Pulmonary Embolism Pulmonary Medical History: Denies: Asthma, Bronchitis, Chronic Obstructive Pulmonary Disease (COPD), Pneumonia Psychiatric Medical History: Reports: Attention Deficit Hyperactivity Disorder, Bipolar Disorder, Depression, Substance Abuse, Tobacco Dependency Past Surgical History Past Surgical History: Reports: Other - unable to obtained at this time since the patient is intubated/sedated. Social History Information Source: Patient, [facility] Records Smoking Status: Current Every Day Smoker Frequency of Alcohol Use: Rare Hx Recreational Drug Use: Yes Drugs: Cocaine, Methadone, Other - possible IVDA. Hx Prescription Drug Abuse: Yes Family History Family History: Other Parental Family History Reviewed: Yes Children Family History Reviewed: Yes Sibling(s) Family History Reviewed.: Yes Medication/Allergy Home Medications: No Home Medications 10/10/17 Allergies/Adverse Reactions: acetaminophen Allergy (Verified 10/09/17 22:27) Penicillins Allergy (Verified 10/09/17 22:27) Review of Systems Constitutional: ABSENT: chills, fever(s), headache(s), weight gain, weight loss Eyes: ABSENT: visual disturbances Ears: ABSENT: hearing changes Cardiovascular: ABSENT: chest pain, dyspnea on exertion, edema, orthropnea, palpitations Respiratory: ABSENT: cough, hemoptysis Gastrointestinal: ABSENT: abdominal pain, constipation, diarrhea, hematemesis, hematochezia, nausea, vomiting Genitourinary: ABSENT: dysuria, hematuria Musculoskeletal: ABSENT: joint swelling Integumentary: ABSENT: rash, wounds Neurological: ABSENT: abnormal gait, abnormal speech, confusion, dizziness, focal weakness, syncope Psychiatric: ABSENT: anxiety, depression, homidical ideation, suicidal ideation Endocrine: ABSENT: cold intolerance, heat intolerance, polydipsia, polyuria Hematologic/Lymphatic: ABSENT: easy bleeding, easy bruising Physical Exam Vital Signs: Temp Pulse Resp BP Pulse Ox 97.8 F 20 114/66 97 11/01/17 03:52 11/01/17 02:29 11/01/17 02:29 11/01/17 02:29 General appearance: PRESENT: cooperative, disheveled Head exam: PRESENT: atraumatic, normocephalic Eye exam: PRESENT: conjunctiva pink, EOMI, PERRLA. ABSENT: scleral icterus Ear exam: PRESENT: normal external ear exam Mouth exam: PRESENT: moist, tongue midline Neck exam: ABSENT: carotid bruit, JVD, lymphadenopathy, thyromegaly Respiratory exam: PRESENT: clear to auscultation fuentes. ABSENT: rales, rhonchi, wheezes Cardiovascular exam: PRESENT: RRR. ABSENT: diastolic murmur, rubs, systolic murmur Pulses: PRESENT: normal dorsalis pedis pul Vascular exam: PRESENT: normal capillary refill GI/Abdominal exam: PRESENT: ascites Rectal exam: PRESENT: deferred Extremities exam: PRESENT: full ROM. ABSENT: calf tenderness, clubbing, pedal edema Neurological exam: PRESENT: alert, awake, oriented to person, oriented to place , oriented to time, oriented to situation, CN II-XII grossly intact. ABSENT: motor sensory deficit Psychiatric exam: PRESENT: appropriate affect, normal mood. ABSENT: homicidal ideation, suicidal ideation Skin exam: PRESENT: dry, intact, warm. ABSENT: cyanosis, rash Results Impressions: Chest X-Ray 10/31/17 23:33 IMPRESSION: 1. No acute pulmonary process identified. Assessment & Plan - Diagnosis (1) Cocaine use Is this a current diagnosis for this admission?: Yes Plan: Resulting in anxiety, tachycardia and prolonged QT interval. Telemetry monitoring benzodiazepine serial cardiac enzymes reassurance. Patient has follow-up with outpatient substance abuse treatment scheduled (2) Prolonged QT interval Is this a current diagnosis for this admission?: Yes Plan: Secondary to #1. Supportive care and magnesium (3) Elevated troponin Is this a current diagnosis for this admission?: Yes Plan: Serial enzymes ordered. - Time Time Spent: 30 to 50 Minutes - Inpatient Certification Medical Necessity: Need Close Monitoring Due to Risk of Patient Decompensation
[2017-11-01 07:28] LABS: ABSOLUTE BASOPHILS # (AUTO) 0.2 10^3/uL (0.0-0.2); ABSOLUTE EOSINOPHILS # (AUTO) 0.1 10^3/uL (0.0-0.6); ABSOLUTE LYMPHOCYTES (AUTO) 2.4 10^3/uL (0.5-4.7); ABSOLUTE MONOCYTES (AUTO) 1.1 10^3/uL (0.1-1.4); BASOPHILS % (AUTO) 1.3 % (0-2); HEMATOCRIT 37.8 % (36.0-47.0); HEMOGLOBIN 12.6 g/dL (12.0-15.5); LYMPHOCYTES % (AUTO) 18.9 % (13-45); MEAN CORPUSCULAR HEMOGLOBIN 30.5 pg (27.0-33.4); MEAN CORPUSCULAR HGB CONC 33.2 g/dL (32.0-36.0); MEAN CORPUSCULAR VOLUME 92 fl (80-97); MONOCYTES % (AUTO) 8.7 % (3-13); PLATELET COUNT 311 10^3/uL (150-450); RED BLOOD COUNT 4.12 10^6/uL (3.72-5.28); RED CELL DISTRIBUTION WIDTH 14.9 % (11.5-14.0); SEGMENTED NEUTROPHILS % (AUTO) 70.1 % (42-78); TOTAL CELLS COUNTED % (AUTO) 100 %; WHITE BLOOD COUNT 12.8 10^3/uL (4.0-10.5)
[2017-11-01 07:38] LABS: ALANINE AMINOTRANSFERASE 83 U/L (9-52); ALKALINE PHOSPHATASE 72 U/L (38-126); ANION GAP 15 (5-19); ASPARTATE AMINO TRANSFERASE 60 U/L (14-36); BILIRUBIN,DIRECT 0.5 mg/dL (0.0-0.4); BILIRUBIN,TOTAL 0.7 mg/dL (0.2-1.3); BLOOD UREA NITROGEN 20 mg/dL (7-20); CALCIUM 9.2 mg/dL (8.4-10.2); CARBON DIOXIDE 19 mmol/L (22-30); CHLORIDE 111 mmol/L (98-107); CREATINE KINASE 326 U/L (30-135); GLUCOSE 71 mg/dL (75-110); POTASSIUM 3.7 mmol/L (3.6-5.0); SODIUM 144.8 mmol/L (137-145); TOTAL PROTEIN 6.6 g/dL (6.3-8.2)
[2017-11-01 07:46] LABS: CREATINE KINASE MB 2.57 ng/mL (<4.55); TROPONIN I 0.035 ng/mL
[2017-11-01] MEDS ORDERED: NORMAL SALINE 1000 ML 1,000 ML IV PRN (08:26)
--- NOTE | 2017-11-01 08:53 | EKG REPORT ---
SEVERITY:- ABNORMAL ECG - SINUS TACHYCARDIA BORDERLINE T ABNORMALITIES, ANTERIOR LEADS PROLONGED QT INTERVAL : Confirmed by: You Rosenthal 01-Nov-2017 08:52:56
[2017-11-01] MEDS ORDERED: KETOROLAC TROMETHAMINE INJ/PF 30 MG/1 ML SDV IV ONE (10:23)
[2017-11-01] MEDS ORDERED: NORMAL SALINE 1000 ML 1,000 ML IV ONE (10:34)
[2017-11-01 13:35] LABS: CREATINE KINASE MB 2.27 ng/mL (<4.55)
[2017-11-01 13:39] LABS: TROPONIN I < 0.012 ng/mL
[2017-11-01] MEDS ORDERED: DIAZEPAM 2 MG TABLET PO ONE (14:15)
--- NOTE | 2017-11-01 20:21 | Progress Note ---
Provider Note Provider Note: Agree with Raschel Knitting Machine Operator plan of care. Patient seen this morning on rounds, she denies chest pain, SOB, or palpitations. Serial cardiac enzymes peaked at 0.07, CK>300, blood pressure low/normal. 1. COCAINE INDUCED TACHYCARDIA: Supportive care. Continue cardiac telemetry. Bolus 1L IVF and continue with maintenance IVF. Plan to repeat EKG in AM. Serial cardiac enzymes trending down, no need to continue monitoring unless the patient commplains of chest pain. 2. Prolonged QT: QTc 506 on EKG. Avoid antipsychotic medications and other medications that can prolong the QTc. Repeat EKG in AM. 3. NAUSEA AND VOMITING: the patient endorses an episode of N/V last night. PRN zofran. 4. ELEVATED CK: >300. At risk for developing rhabdo secondary to cocaine use. Bolus 1L IVF today and continue with maintenance IVF. Creatinine WNL. Continue to trend Q6H CK and daily BMP. Strict I&O.
[2017-11-01 21:08] LABS: CREATINE KINASE MB 4.39 ng/mL (<4.55)
[2017-11-01] MEDS: DIAZEPAM 2 MG TABLET PO SCH (21:35)
[2017-11-01 21:41] LABS: TROPONIN I < 0.012 ng/mL
[2017-11-02] MEDS: DIAZEPAM 2 MG TABLET PO SCH ×2 (06:04→14:22)
[2017-11-02] MEDS: HEPARIN SOD (PORCINE) 5,000 UNIT/ML 1 ML SYRINGE SUBCUT SCH ×2 (06:04→14:23)
[2017-11-02 08:41] LABS: ALANINE AMINOTRANSFERASE 331 U/L (9-52); ALBUMIN 3.3 g/dL (3.5-5.0); ALKALINE PHOSPHATASE 101 U/L (38-126); ASPARTATE AMINO TRANSFERASE 262 U/L (14-36); BILIRUBIN,DIRECT 0.2 mg/dL (0.0-0.4); BILIRUBIN,TOTAL 0.2 mg/dL (0.2-1.3); BLOOD UREA NITROGEN 12 mg/dL (7-20); CALCIUM 8.8 mg/dL (8.4-10.2); CARBON DIOXIDE 18 mmol/L (22-30); CREATINE KINASE 222 U/L (30-135); GLUCOSE 75 mg/dL (75-110); POTASSIUM 4.1 mmol/L (3.6-5.0); SODIUM 139.9 mmol/L (137-145); TOTAL PROTEIN 5.6 g/dL (6.3-8.2)
[2017-11-02 08:43] LABS: ANION GAP 10 (5-19); CHLORIDE 112 mmol/L (98-107)
--- NOTE | 2017-11-02 15:27 | RADIOLOGY REPORT (SQ) ---
EXAM DESCRIPTION: U/S ABDOMEN LTD W/DOPPLER COMPLETED DATE/TIME: 11/02/2017 3:12 pm REASON FOR STUDY: RUQ PAIN. EVALUATE FOR GALLSTONES COMPARISON: Hepatobiliary scan 10/11/2017 TECHNIQUE: Dynamic and static grayscale images acquired of the abdomen and recorded on PACS. Additio nal selected color Doppler and spectral images recorded. LIMITATIONS: None. FINDINGS: PANCREAS: Midline pancreas unremarkable LIVER: No masses. Echotexture normal. LIVER VASCULATURE: Normal directional flow of the main portal vein and hepatic veins. GALLBLADDER: There are gallstones present. Mild gallbladder wall thickening. No pericholecystic flu id. ULTRASOUND-DETECTED LIU'S SIGN: Positive INTRAHEPATIC DUCTS AND COMMON DUCT: CBD and intrahepatic ducts normal caliber. No filling defects. INFERIOR VENA CAVA: Normal flow. AORTA: No aneurysm. RIGHT KIDNEY: Normal size. Normal echogenicity. No solid or suspicious masses. No hydronephrosis. No calcifications. PERITONEAL AND RIGHT PLEURAL SPACE: No ascites or effusions. OTHER: No other significant findings. IMPRESSION: There are gallstones in the gallbladder with mild gallbladder wall thickening. Positive sonographic Liu sign. TECHNICAL DOCUMENTATION: JOB ID: [id number] [employer]- All Rights Reserved Reading location - IP/workstation name: [email or web address]
[2017-11-02 16:37] VITALS: BP 99/58
[2017-11-03] MEDS ORDERED: VANCOMYCIN HCL 1,000 MG in DEXTROSE 5%-WATER 250 ML IV PRN (05:00)
[2017-11-03 06:39] LABS: HEPATITIS A AB IGM Negative (Negative); HEPATITIS B CORE AB IGM Negative (Negative); HEPATITS B SURFACE ANTIGEN Negative (Negative)
[2017-11-03 07:37] LABS: HEPATITIS C VIRUS ANTIBODY >11.0 s/co ratio (0.0-0.9)
--- NOTE | 2017-11-08 15:07 | PDOC DISCHARGE SUMMARY ---
General - Admit/Disc Date/PCP Admission Date/Primary Care Provider: 11/02/17 11:04 JOSEPHINE DIMAS, Discharge Date: 11/02/17 - Discharge Diagnosis (1) Cocaine abuse Is this a current diagnosis for this admission?: Yes (2) Nausea & vomiting Is this a current diagnosis for this admission?: Yes (3) Prolonged QT interval Is this a current diagnosis for this admission?: Yes - Additional Information Resuscitation Status: Full Code Discharge Diet: As Tolerated Discharge Activity: Activity As Tolerated Home Medications: Methocarbamol [Robaxin 750 mg Tablet] 750 mg PO Q6HP PRN MDD 8 DAYS SUPPLY FILLED ON 10/19/17 11/01/17 Oxycodone HCl [Roxicodone] 5 mg PO Q6HP PRN MDD 5 DAY SUPPLY FILLED ON 10/24/17 History of Present Illness History of Present Illness: BEBETO MOREL is a 31 year old female with a past medical history of polysubstance abuse and recent pneumonia. Patient presents approximately 4 hours after IV use of cocaine resulting in tachycardia and anxiety. In the emergency room she is found to be anxious, tachycardic with a prolonged QT interval. She is referred to the hospitalist for admission. Patient denies chest pain shortness of breath nausea vomiting. Hospital Course Hospital Course: REKHA MOREL is a 31 y.o. female who presented with anxiety and cocaine induced tachycardia. EKG showed sinus tachycardia with no evidence of acute ischemia or infarction. She was treated with 1L IVF in the emergency department. Admitted to medical unit with continuous cardiac telemetry. Serial cardiac enzymes peaked at 0.07. Elevated CK levelsgiven her cocaine use. Initial CK 306, placed on continuous IVF. Trended Q6H CK and daily BMP while inpatient. CK peaked at 609 but quickly returned to <300. No evidence of myoglobinemia. The patient's AST and ALT levels acutely increased within 24 hrs of admission. AST 60->262. ALT 83->331. The patient endorsed dull right upper quadrant pain. She also states that she has a history of gallstones and has a cholecystectomy scheduled for 11/03/2017 (tomorrow). Abdominal ultrasound was performed to evaluate for any acute findings, results were benign. Ultimately, the patient was discharged home. No new home medications. The patient was instructed to stop using cocaine. Additionally, her surgeon was contacted regarding her hospitalization. He recommended she keep her appointment for her scheduled cholecystectomy. Physical Exam Vital Signs: Temp Pulse Resp BP Pulse Ox 98.8 F 57 L 24 H 99/58 L 100 11/02/17 16:33 11/02/17 16:33 11/02/17 16:33 11/02/17 16:33 11/02/17 16:33 Results Impressions: Chest X-Ray 10/31/17 23:33 IMPRESSION: 1. No acute pulmonary process identified. Abdomen Ultrasound 11/02/17 00:00 IMPRESSION: There are gallstones in the gallbladder with mild gallbladder wall thickening. Positive sonographic Liu sign. Status: Imported from PACS Qualifiers - * PATIENT BEING DISCHARGED WITH ANY OF THE FOLLOWING DIAGNOSIS: No Plan Time Spent: Less than 30 Minutes
== END 2017-11-02 16:47 | disposition home or self-care (01) | DRG 897 ==
LOC: ER 20:41 → EH 11-01 06:39 → 4W 11-01 08:44 → OBSVTOIN 11-02 11:04
PROVIDERS: ADMIT Internal Medicine; ATTEND Internal Medicine
DX: F14.188 Cocaine abuse with other cocaine-induced disorder (principal); R00.0 Tachycardia, unspecified; I45.81 Long QT syndrome; R50.2 Drug induced fever; F17.210 Nicotine dependence, cigarettes, uncomplicated; Y92.9 Unspecified place or not applicable
CPT/HCPCS: 36415; 71045; 76705; 80053; 80074; 80307; 81001; 81025; 82550; 82553; 82803; 83605; 83735; 84484; 85025; 87040; 93005; 93010; 93976; 96361; 96372; 96374; 99285; G0378; J1644; J1885; J2405; J3490; J7030

== ENCOUNTER → 2018-05-31 | Outpatient (CLI) | payer MEDICAID ==
--- NOTE | 2018-05-31 15:15 | RADIOLOGY REPORT (SQ) ---
EXAM DESCRIPTION: SHOULDER RIGHT 2 OR MORE VIEWS COMPLETED DATE/TIME: 05/31/2018 2:55 pm REASON FOR STUDY: RT SHOULDER PAIN M25.511 PAIN IN RIGHT SHOULDER COMPARISON: None. NUMBER OF VIEWS: Three views. TECHNIQUE: Internal rotation, external rotation, and Y view images acquired of the right shoulder. LIMITATIONS: None. FINDINGS: MINERALIZATION: Normal. BONES: No acute fracture or dislocation. No worrisome bone lesions. JOINTS: No dislocation. VISUALIZED LUNGS AND RIBS: No pneumothorax. No rib fracture. SOFT TISSUES: No radiopaque foreign body. OTHER: No other significant finding. IMPRESSION: NEGATIVE STUDY OF THE RIGHT SHOULDER. NO RADIOGRAPHIC EVIDENCE OF ACUTE INJURY. TECHNICAL DOCUMENTATION: JOB ID: [id number] [employer]- All Rights Reserved Reading location - IP/workstation name: [email or web address]
== END ==
LOC: OD 14:30
PROVIDERS: ATTEND Family Medicine
DX: M25.511 Pain in right shoulder (principal)

== ENCOUNTER 2018-08-02 14:29 | Day surgery (SDC) | payer MEDICAID ==
[~2018-08-02 14:29] MED LIST: DEXAMETHASONE SOD PHOSPHATE INJ 4 MG/1 ML VIAL ONE; GLYCOPYRROLATE 1 MG/5 ML SYRINGE ONE; IBUPROFEN 800 MG in NORMAL SALINE 250 ML IV PRN; LIDOCAINE 2% INJ-PF (20 MG/ML) 2 ML AMPUL ONE; METOCLOPRAMIDE HCL INJ/PF 10 MG/2 ML SDV ONE; NEOSTIGMINE METHYLSULFATE 10 MG/10 ML VIAL ONE; ONDANSETRON HCL INJ/PF 4 MG/2 ML SDV ONE; ROCURONIUM BROMIDE INJ 50 MG/5 ML VIAL IV ONE; SUCCINYLCHOLINE CHLORIDE INJ 200 MG/10 ML VIAL ONE; VANCOMYCIN HCL 1,000 MG in DEXTROSE 5%-WATER 250 ML IV PRN
--- NOTE | 2018-08-02 15:28 | RADIOLOGY REPORT (SQ) ---
EXAM DESCRIPTION: CHEST SINGLE VIEW COMPLETED DATE/TIME: 08/02/2018 3:19 pm REASON FOR STUDY: PRE OP COMPARISON: None. EXAM PARAMETERS: NUMBER OF VIEWS: One view. TECHNIQUE: Single frontal radiographic view of the chest acquired. RADIATION DOSE: NA LIMITATIONS: None. FINDINGS: LUNGS AND PLEURA: No opacities, masses or pneumothorax. No pleural effusion. MEDIASTINUM AND HILAR STRUCTURES: No masses. Contour normal. HEART AND VASCULAR STRUCTURES: Heart normal in size. Normal vasculature. BONES: No acute findings. HARDWARE: None in the chest. OTHER: No other significant finding. IMPRESSION: NO ACUTE RADIOGRAPHIC FINDING IN THE CHEST. TECHNICAL DOCUMENTATION: JOB ID: [id number] [employer]- All Rights Reserved Reading location - IP/workstation name: [email or web address]
[2018-08-02 15:32] LABS: ALANINE AMINOTRANSFERASE 104 U/L (9-52); ALBUMIN 4.8 g/dL (3.5-5.0); ALKALINE PHOSPHATASE 96 U/L (38-126); ANION GAP 12 (5-19); ASPARTATE AMINO TRANSFERASE 69 U/L (14-36); BILIRUBIN,DIRECT 0.4 mg/dL (0.0-0.4); BILIRUBIN,TOTAL 0.6 mg/dL (0.2-1.3); BLOOD UREA NITROGEN 7 mg/dL (7-20); CARBON DIOXIDE 20 mmol/L (22-30); CHLORIDE 110 mmol/L (98-107); GLUCOSE 86 mg/dL (75-110); POTASSIUM 4.1 mmol/L (3.6-5.0); SODIUM 141.6 mmol/L (137-145); TOTAL PROTEIN 7.9 g/dL (6.3-8.2)
[2018-08-02 15:39] LABS: ABSOLUTE BASOPHILS # (AUTO) 0.1 10^3/uL (0.0-0.2); ABSOLUTE EOSINOPHILS # (AUTO) 0.4 10^3/uL (0.0-0.6); ABSOLUTE LYMPHOCYTES (AUTO) 2.3 10^3/uL (0.5-4.7); ABSOLUTE MONOCYTES (AUTO) 0.3 10^3/uL (0.1-1.4); ABSOLUTE NEUT (AUTO) 7.8 10^3/uL (1.7-8.2); BASOPHILS % (AUTO) 1.3 % (0-2); EOSINOPHILS % (AUTO) 3.7 % (0-6); HEMATOCRIT 46.6 % (36.0-47.0); HEMOGLOBIN 16.2 g/dL (12.0-15.5); LYMPHOCYTES % (AUTO) 20.9 % (13-45); MEAN CORPUSCULAR HEMOGLOBIN 31.5 pg (27.0-33.4); MEAN CORPUSCULAR HGB CONC 34.7 g/dL (32.0-36.0); MEAN CORPUSCULAR VOLUME 91 fl (80-97); MONOCYTES % (AUTO) 2.9 % (3-13); PLATELET COUNT 344 10^3/uL (150-450); RED BLOOD COUNT 5.14 10^6/uL (3.72-5.28); SEGMENTED NEUTROPHILS % (AUTO) 71.2 % (42-78); TOTAL CELLS COUNTED % (AUTO) 100 %
[2018-08-02] MEDS ORDERED: MIDAZOLAM 2 MG/2 ML INJ ONE ×2 (15:46→17:11)
[2018-08-02] MEDS ORDERED: MIDAZOLAM 2 MG/2 ML INJ IV ONE ×2 (15:50→16:00)
[2018-08-02] MEDS ORDERED: VANCOMYCIN HCL INJ 1000 MG VIAL IV ONE (16:19)
[2018-08-02] MEDS ORDERED: BUPIVACAINE HCL 0.25 % INJ/PF (2.5 MG/1 ML) 30 ML VIAL ONE (16:49)
[2018-08-02] MEDS ORDERED: ACETAMINOPHEN 0 MG/0 ML RTUPB IV ONE (17:11)
[2018-08-02] MEDS ORDERED: PROPOFOL INJ 200 MG/20 ML VIAL IV ONE (17:11)
[2018-08-02] MEDS ORDERED: EPHEDRINE SULFATE INJ 50 MG/1 ML AMPULE ONE (17:11)
[2018-08-02] MEDS ORDERED: FENTANYL CITRATE INJ/PF 250 MCG/5 ML AMPULE ONE (17:11)
[2018-08-02] MEDS ORDERED: DEXMEDETOMIDINE INJ 80 MCG/20 ML VIAL IV ONE (17:11)
[2018-08-02] MEDS ORDERED: ACETAMINOPHEN 1,000 MG/100 ML RTUPB IV ONE (17:26)
[2018-08-02] MEDS ORDERED: DIPHENHYDRAMINE HCL 50 MG/ML VIAL IV PRN (17:56)
[2018-08-02] MEDS ORDERED: PROMETHAZINE HCL INJ 25 MG/1 ML VIAL IV PRN ×2 (17:56)
[2018-08-02] MEDS ORDERED: MEPERIDINE HCL/PF INJ 25 MG/1 ML DISP.SYRIN IV PRN (17:56)
[2018-08-02] MEDS ORDERED: MORPHINE SULFATE 10 MG/ML INJ IV PRN (17:56)
[2018-08-02] MEDS ORDERED: ONDANSETRON HCL INJ/PF 4 MG/2 ML SDV IV PRN (17:56)
[2018-08-02] MEDS ORDERED: FENTANYL CITRATE INJ/PF 100 MCG/2 ML AMPUL IV PRN ×3 (17:56)
[2018-08-02] MEDS ORDERED: HYDROMORPHONE HCL INJ/PF 2 MG/ML AMPULE ONE (18:58)
--- NOTE | 2018-08-02 19:01 | Discharge Summary ---
Discharge Summary (SDC) - Discharge Final Diagnosis: chronic cholecystitis Date of Surgery: 08/02/18 Discharge Date: 08/02/18 Condition: Stable Treatment or Instructions: d/c home. Diet as tolerated. Activity: no lifting >10 lbs x 2 weeks. f/u 7-10 days. Referrals: JOSEPHINE DIMAS DO [Primary Care Provider] - Discharge Diet: As Tolerated Respiratory Treatments at Home: Deep Breathing/Coughing, Incentive Spirometer Discharge Activity: No Lifting Over 10 Pounds Home Care Assistance: None Needed Report the Following to Your Physician Immediately: Shortness of Breath, Nausea, Vomiting, Increase in Pain, Yellow Skin, Fever over 101 Degrees, Unusual Bleeding, Redness, Swelling, Warmth
[2018-08-02] MEDS ORDERED: OXYCODONE HCL IR 5 MG TABLET ONE (19:34)
[2018-08-02] MEDS ORDERED: OXYCODONE HCL IR 5 MG TABLET PO PRN (19:36)
[2018-08-02 20:34] VITALS: BP 123/77
--- NOTE | 2018-08-03 00:22 | EKG REPORT ---
SEVERITY:- NORMAL ECG - SINUS RHYTHM : Confirmed by: Ani Medina MD 03-Aug-2018 00:22:07
--- NOTE | 2018-08-03 10:44 | Operative Report ---
Nonrecallable Operative Report DATE OF SURGERY: 08/02/18 PREOPERATIVE DIAGNOSIS: Symptomatic cholelithiasis POSTOPERATIVE DIAGNOSIS: Chronic cholecystitis OPERATION: Laparoscopic cholecystectomy SURGEON: FORTINO MAURER ANESTHESIA: GA TISSUE REMOVED OR ALTERED: Gallbladder COMPLICATIONS: None apparent ESTIMATED BLOOD LOSS: Minimal PROCEDURE: Drains/implants: None. Procedure in detail: After informed consent was obtained, the patient was brought to the operating room and laid in the supine position. The area of the abdomen was prepped and draped in a normal sterile fashion. A supraumbilical incision was created with a 15 blade scalpel. Dissection was carried through the subcutaneous tissue using sharp and blunt means. The linea alba fascia was incised sharply, the abdomen was entered sharply. The balloon trocar was inserted, and pneumoperitoneum was achieved. A subxiphoid 5 mm port was placed under direct laparoscopic visualization. 2 more 5 mm ports were placed in the right upper quadrant in similar fashion. Atraumatic graspers were placed through the 5 mm ports. The gallbladder was retracted cephalad and laterally. There was chronic inflammatory changes noted around the infundibulum. Dissection was begun in the triangle of Calot. The cystic duct and cystic artery were fully visualized and skeletonized, seeing the liver through the triangle. Once the critical view of safety was obtained, the cystic duct and cystic artery were clipped and cut with laparoscopic instruments. The gallbladder was then removed from the liver using Bovie electrocautery. The gallbladder was grasped with a large clamp and pulled out the umbilicus. The camera was reinserted. The hilum was inspected. It was found to be free of any leakage of blood or bile. The 5 mm trochars were then removed under direct laparoscopic visualization. The supraumbilical trocar was removed, and pneumoperitoneum was relieved. The supraumbilical fascia was closed using 0 Vicryl suture in [id number] fashion. The overlying skin was closed using 4-0 Vicryl Rapide suture in subcuticular fashion. Dressings were placed, and the procedure was concluded. All sponge, instrument, and needle counts were correct x2. Condition: Stable.
== END 2018-08-02 20:35 | disposition home or self-care (01) ==
LOC: OROUT 14:29
PROVIDERS: ATTEND Surgery
DX: K80.10 Calculus of gallbladder with chronic cholecystitis without obstruction (principal); M62.82 Rhabdomyolysis; R65.10 Systemic inflammatory response syndrome (SIRS) of non-infectious origin without acute organ dysfunction; F17.210 Nicotine dependence, cigarettes, uncomplicated; Z88.0 Allergy status to penicillin; Z88.6 Allergy status to analgesic agent
CPT/HCPCS: 36415; 85025; 81025; 80076; 80048; 88304 ×2; 71045; 93005; 93010; 47562; J2250; J3490 ×5; J1100; J3010; J2765; J1170; J0330; J2405; S0020; J7060; J7050; J2704; J3370; J0131; J1741; 790

== ENCOUNTER → 2018-08-07 | Outpatient (CLI) | payer MEDICAID | LOC: OD 16:05 | PROVIDERS: ATTEND Surgery | DX: R11.2 Nausea with vomiting, unspecified (principal); Z53.8 Procedure and treatment not carried out for other reasons ==

== ENCOUNTER 2018-08-14 10:32 | Day surgery (SDC) | payer MEDICAID ==
[~2018-08-14 10:32] MED LIST changes: -DEXAMETHASONE SOD PHOSPHATE INJ 4 MG/1 ML VIAL ONE; -GLYCOPYRROLATE 1 MG/5 ML SYRINGE ONE; -IBUPROFEN 800 MG in NORMAL SALINE 250 ML IV PRN; -LIDOCAINE 2% INJ-PF (20 MG/ML) 2 ML AMPUL ONE; -METOCLOPRAMIDE HCL INJ/PF 10 MG/2 ML SDV ONE; -NEOSTIGMINE METHYLSULFATE 10 MG/10 ML VIAL ONE; -ONDANSETRON HCL INJ/PF 4 MG/2 ML SDV ONE; +PROPOFOL INJ 200 MG/20 ML VIAL IV ONE; -ROCURONIUM BROMIDE INJ 50 MG/5 ML VIAL IV ONE; -SUCCINYLCHOLINE CHLORIDE INJ 200 MG/10 ML VIAL ONE; -VANCOMYCIN HCL 1,000 MG in DEXTROSE 5%-WATER 250 ML IV PRN
[2018-08-14 12:01] VITALS: BP 124/82
--- NOTE | 2018-08-14 12:50 | Operative Report ---
Operative Report DATE OF SURGERY: 08/14/18 Operative Report: The risks benefits and alternatives of the procedure explained to the patient in detail and informed consent is obtained.A GIF Olympus video scope was inserted into the patient's mouth and hypopharynx, the esophagus is identified intubated and insufflated, the scope was then advanced through the esophagus stomach and duodenum, retroflexion maneuver is done, the esophagus stomach and first and second portions of the duodenum examined. PREOPERATIVE DIAGNOSIS: Epigastric pain rule out peptic ulcer disease POSTOPERATIVE DIAGNOSIS: Gastritis status post biopsy rule out Helicobacter pylori. Hiatal hernia OPERATION: EGD with biopsy SURGEON: ISSAC BROOKE ANESTHESIA: LMAC TISSUE REMOVED OR ALTERED: As noted above. COMPLICATIONS: None. ESTIMATED BLOOD LOSS: None. INTRAOPERATIVE FINDINGS: As noted above. PROCEDURE: Patient tolerated the procedure well. No immediate postprocedure complications are noted. Patient discharged in good condition. Discharge date 08/14/2018. Discharge diet: Regular. Discharge activity: Regular. 2-3-week follow-up to discuss findings. Patient is instructed to call the office or proceed to the emergency room should there be any further problems or questions. I will wait on the pathology.
== END 2018-08-14 12:02 | disposition home or self-care (01) ==
LOC: END 10:32
PROVIDERS: ATTEND Internal Medicine Gastroenterology
DX: K29.50 Unspecified chronic gastritis without bleeding (principal); K44.9 Diaphragmatic hernia without obstruction or gangrene; K21.9 Gastro-esophageal reflux disease without esophagitis; F17.210 Nicotine dependence, cigarettes, uncomplicated; Z79.891 Long term (current) use of opiate analgesic; Z79.899 Other long term (current) drug therapy; Z88.6 Allergy status to analgesic agent; Z88.0 Allergy status to penicillin
CPT/HCPCS: 43239; 88305 ×2; 88312 ×2; J2704; 731

== ENCOUNTER → 2018-08-21 | Outpatient (CLI) | payer MEDICAID ==
[2018-08-21 16:08] LABS: ABSOLUTE BASOPHILS # (AUTO) 0.1 10^3/uL (0.0-0.2); ABSOLUTE EOSINOPHILS # (AUTO) 0.5 10^3/uL (0.0-0.6); ABSOLUTE LYMPHOCYTES (AUTO) 2.3 10^3/uL (0.5-4.7); ABSOLUTE MONOCYTES (AUTO) 0.5 10^3/uL (0.1-1.4); ABSOLUTE NEUT (AUTO) 7.4 10^3/uL (1.7-8.2); BASOPHILS % (AUTO) 0.9 % (0-2); EOSINOPHILS % (AUTO) 4.4 % (0-6); HEMATOCRIT 44.7 % (36.0-47.0); HEMOGLOBIN 15.5 g/dL (12.0-15.5); LYMPHOCYTES % (AUTO) 21.5 % (13-45); MEAN CORPUSCULAR HEMOGLOBIN 31.4 pg (27.0-33.4); MEAN CORPUSCULAR HGB CONC 34.6 g/dL (32.0-36.0); MEAN CORPUSCULAR VOLUME 91 fl (80-97); MONOCYTES % (AUTO) 4.9 % (3-13); PLATELET COUNT 345 10^3/uL (150-450); RED BLOOD COUNT 4.93 10^6/uL (3.72-5.28); RED CELL DISTRIBUTION WIDTH 14.2 % (11.5-14.0); SEGMENTED NEUTROPHILS % (AUTO) 68.3 % (42-78); TOTAL CELLS COUNTED % (AUTO) 100 %; WHITE BLOOD COUNT 10.9 10^3/uL (4.0-10.5)
[2018-08-21 16:26] LABS: ALBUMIN 4.5 g/dL (3.5-5.0); AMYLASE 59 U/L (30-110); ANION GAP 13 (5-19); BLOOD UREA NITROGEN 11 mg/dL (7-20); CALCIUM 10.1 mg/dL (8.4-10.2); CARBON DIOXIDE 22 mmol/L (22-30); CHLORIDE 106 mmol/L (98-107); GLUCOSE 98 mg/dL (75-110); POTASSIUM 3.9 mmol/L (3.6-5.0); SODIUM 140.5 mmol/L (137-145); TOTAL PROTEIN 7.4 g/dL (6.3-8.2)
[2018-08-21 16:37] LABS: ALANINE AMINOTRANSFERASE 61 U/L (9-52); ALKALINE PHOSPHATASE 113 U/L (38-126); ASPARTATE AMINO TRANSFERASE 51 U/L (14-36); BILIRUBIN,DIRECT 0.3 mg/dL (0.0-0.4); BILIRUBIN,TOTAL 0.3 mg/dL (0.2-1.3); LIPASE 65.7 U/L (23-300)
[2018-08-21 16:41] LABS: C-REACTIVE PROTEIN < 5.0 mg/L (<10.0)
[2018-08-21 16:43] LABS: ERYTHROCYTE SEDIMENTATION RATE 8 mm/hr (0-20)
== END ==
LOC: LAB 15:32
PROVIDERS: ATTEND Family Medicine
DX: R10.13 Epigastric pain (principal)
CPT/HCPCS: 36415; 80053; 82150; 83690; 85025; 85652; 86140

== ENCOUNTER 2018-10-27 10:11 | Day surgery (SDC) | payer MEDICAID ==
[2018-10-27] MEDS ORDERED: ALBUTEROL SULFATE 0.083% NEB 2.5 MG/3 ML AMPUL NEB ONE (11:01)
[2018-10-27] MEDS ORDERED: PROPOFOL INJ 200 MG/20 ML VIAL IV ONE (11:20)
[2018-10-27] MEDS ORDERED: DIPHENHYDRAMINE HCL 50 MG/ML VIAL IV PRN (12:02)
[2018-10-27] MEDS ORDERED: MEPERIDINE HCL/PF INJ 25 MG/1 ML DISP.SYRIN IV PRN (12:02)
[2018-10-27] MEDS ORDERED: PROMETHAZINE HCL INJ 25 MG/1 ML VIAL IV PRN ×2 (12:02)
[2018-10-27 13:19] VITALS: BP 124/75
--- NOTE | 2018-10-27 14:18 | Discharge Summary ---
Discharge Summary (SDC) - Discharge Final Diagnosis: Severe gastritis with multiple shallow gastric ulcers. Duodenitis. Hiatal hernia. Date of Surgery: 10/27/18 Discharge Date: 10/27/18 Condition: Stable Forms: ASU Anesthesia D/C Instruction, Discharge POC-Surgical Service Treatment or Instructions: Discharge home. Diet as tolerated. Activity: Nonstrenuous. Continue with Carafate and PPI. Follow-up in 3 weeks. Referrals: FORTINO MAURER MD [ACTIVE STAFF] - 11/06/18 8:15 am Respiratory Treatments at Home: Deep Breathing/Coughing, Incentive Spirometer Discharge Activity: Activity As Tolerated, Balance Activity w/Rest, No Driving, Slowly Increase Activity, Walk Frequently Home Care Assistance: None Needed Report the Following to Your Physician Immediately: Shortness of Breath, Nausea, Vomiting, Increase in Pain, Fever over 101 Degrees, Unusual Bleeding, Redness, Swelling, Warmth, Increased Soreness, Drainage-Foul Smelling, IV Site Infection Signs
--- NOTE | 2018-10-27 14:22 | Operative Report ---
Nonrecallable Operative Report DATE OF SURGERY: 10/27/18 PREOPERATIVE DIAGNOSIS: Abdominal pain, history of gastritis. POSTOPERATIVE DIAGNOSIS: 1. Severe gastritis with shallow gastric ulcerations throughout her stomach. 2. Duodenitis. 3. Hiatal hernia. OPERATION: EGD with biopsy. SURGEON: FORTINO MAURER ANESTHESIA: LMAC TISSUE REMOVED OR ALTERED: Antral biopsy COMPLICATIONS: None apparent. ESTIMATED BLOOD LOSS: Minimal PROCEDURE: Procedure in detail: After informed consent was obtained from the patient, she was laid in the left lateral decubitus position in the operating room. The endoscope was passed down the oropharynx, down the esophagus, and into the stomach. There was a large hiatal hernia noted upon entry into the stomach. There was a mild amount of esophagitis present. The gastric body and antrum were littered with shallow gastric ulcers and severe gastritis. Scope was pushed into the first and second portions of the duodenum. The duodenal bulb was also inflamed, confirming duodenitis. The second portion of the duodenum appeared normal. The scope was brought into the antrum, and a biopsy was taken to rule out H. pylori. The scope was then withdrawn up the esophagus. The remainder of the esophagus was smooth in contour without masses, lesions, or other abnormalities. The scope was removed from the patient's oropharynx, and the procedure was concluded. All sponge, instrument, and needle counts were correct. Condition: Stable.
== END 2018-10-27 13:29 | disposition home or self-care (01) ==
LOC: OROUT 10:11
PROVIDERS: ATTEND Surgery
DX: K29.70 Gastritis, unspecified, without bleeding (principal); K29.80 Duodenitis without bleeding; K44.9 Diaphragmatic hernia without obstruction or gangrene; K25.9 Gastric ulcer, unspecified as acute or chronic, without hemorrhage or perforation; B96.81 Helicobacter pylori [H. pylori] as the cause of diseases classified elsewhere
CPT/HCPCS: 43239; 81025; 88342 ×2; 88305 ×2; J2704; 731

== ENCOUNTER 2018-12-20 09:17 | Emergency (ER) | payer MEDICAID ==
[2018-12-20 09:24] VITALS: BP 125/81
[2018-12-20] MEDS ORDERED: NORMAL SALINE 1000 ML 1,000 ML IV PRN (09:30)
[2018-12-20] MEDS ORDERED: ONDANSETRON HCL INJ/PF 4 MG/2 ML SDV IV ONE (09:32)
[2018-12-20] MEDS ORDERED: MORPHINE SULFATE 10 MG/ML INJ IV ONE ×2 (09:32→14:51)
--- NOTE | 2018-12-20 09:35 | ER Document Report ---
ED Medical Screen (RME) - General Chief Complaint: Abdominal Pain Stated Complaint: VOMITING Time Seen by Provider: 12/20/18 09:23 Primary Care Provider: JOSEPHINE LENZ DO [Primary Care Provider] - Follow up as needed Mode of Arrival: Ambulatory Information source: Patient TRAVEL OUTSIDE OF THE [place] IN LAST 30 DAYS: No - HPI Notes: 12/20/18 09:33 Patient is a 33 yr old female peresents for c/o of persistent epigastric abd pain, nausea, vomiting, diarrhea for the last few days. Patient has had a recent endoscopy done within the last 6 weeks which showed she had gastric ulcers, patient did have her gallbladder removed within the last 6 months. Denies any fevers, reports chills, denies any shortness of breath, chest pain. Patient denies any melena, hemoptysis, black tarry stool. Symptoms have become progressively worse. Patient's primary care provider, Dr. Lenz ordered CT abdomen pelvis yesterday, results are pending. She did contact her primary care provider today, advised to go to the ER for further evaluation of symptoms. Patient's pain is 8 out of 10, sharp and stabbing in the epigastric area ROS: Other than noted above, the 12 point review of systems was reviewed with the patient and were negative, all pertinent findings are included in the HPI. PHYSICAL EXAMINATION: Vital signs reviewed. GENERAL: Well-appearing, well-nourished and in no moderate distress HEAD: Atraumatic, normocephalic. CV: Heart regular rate and rhythm LUNGS: No respiratory distress ABD: epigastric tenderness Musculoskeletal: Normal range of motion NEUROLOGICAL: Normal speech PSYCH: Normal mood, normal affect. MDM: Patient seen and examined for rapid initial assessment. Vital signs reviewed. A comprehensive ED assessment and evaluation of the patient, analysis of test results and completion of the medical decision making process will be conducted by additional ED providers. *Note is created using voice recognition software and may contain spelling, syntax or grammatical errors. - Related Data Allergies/Adverse Reactions: acetaminophen Allergy (Severe, Verified 12/20/18 09:18) Anaphylaxis Penicillins Allergy (Severe, Verified 12/20/18 09:18) Anaphylaxis Past Medical History - Social History Chew tobacco use (# tins/day): No Frequency of alcohol use: None Drug Abuse: None - Past Medical History Cardiac Medical History: Denies: Hx Atrial Fibrillation, Hx Congestive Heart Failure, Hx Coronary Artery Disease, Hx DVT, Hx Heart Attack, Hx Hypercholesterolemia, Hx Hypertension, Hx Peripheral Vascular Disease, Hx Pulmonary Embolism Pulmonary Medical History: Denies: Hx Asthma, Hx Bronchitis, Hx COPD, Hx Pneumonia Neurological Medical History: Denies: Hx Cerebrovascular Accident, Hx Seizures Renal/ Medical History: Denies: Hx Peritoneal Dialysis Musculoskeltal Medical History: Denies Hx Arthritis Psychiatric Medical History: Reports: Hx Attention Deficit Hyperactivity Disorder, Hx Bipolar Disorder, Hx Depression Past Surgical History: Reports: Other - unable to obtained at this time since the patient is intubated/sedated. - Immunizations Immunizations up to date: Yes Hx Diphtheria, Pertussis, Tetanus Vaccination: Yes History of Influenza Vaccine for 03/2017 - 08/2017 Season: Yes Influenza Administration Date for 03/2017 - 08/2017 Season: 04/20/19 Physical Exam - Vital signs Vitals: Temp Pulse Resp BP Pulse Ox 98.0 F 83 24 H 125/81 100 12/20/18 09:22 12/20/18 09:22 12/20/18 09:22 12/20/18 09:22 12/20/18 09:22 Course - Vital Signs Vital signs: Temp Pulse Resp BP Pulse Ox 98.0 F 83 24 H 125/81 100 12/20/18 09:22 12/20/18 09:22 12/20/18 09:22 12/20/18 09:22 12/20/18 09:22 Doctor's Discharge - Discharge Referrals: JOSEPHINE LENZ DO [Primary Care Provider] - Follow up as needed
--- NOTE | 2018-12-20 10:05 | ER Document Report ---
ED GI/ - General Chief Complaint: Abdominal Pain Stated Complaint: VOMITING Time Seen by Provider: 12/20/18 09:23 Primary Care Provider: JOSEPHINE DIMAS DO [Primary Care Provider] - Follow up as needed Mode of Arrival: Ambulatory TRAVEL OUTSIDE OF THE [place] IN LAST 30 DAYS: No - Related Data Allergies/Adverse Reactions: acetaminophen Allergy (Severe, Verified 12/20/18 09:18) Anaphylaxis Penicillins Allergy (Severe, Verified 12/20/18 09:18) Anaphylaxis morphine Adverse Reaction (Severe, Verified 12/20/18 15:46) Hives Past Medical History - General Information source: Patient - Social History Smoking Status: Current Every Day Smoker Chew tobacco use (# tins/day): No Frequency of alcohol use: None Drug Abuse: None Family History: Other Patient has suicidal ideation: No Patient has homicidal ideation: No - Past Medical History Cardiac Medical History: Denies: Hx Atrial Fibrillation, Hx Congestive Heart Failure, Hx Coronary Artery Disease, Hx DVT, Hx Heart Attack, Hx Hypercholesterolemia, Hx Hypertension, Hx Peripheral Vascular Disease, Hx Pulmonary Embolism Pulmonary Medical History: Denies: Hx Asthma, Hx Bronchitis, Hx COPD, Hx Pneumonia Neurological Medical History: Denies: Hx Cerebrovascular Accident, Hx Seizures Renal/ Medical History: Denies: Hx Peritoneal Dialysis Musculoskeletal Medical History: Denies Hx Arthritis Psychiatric Medical History: Reports: Hx Attention Deficit Hyperactivity Disorder, Hx Bipolar Disorder, Hx Depression Past Surgical History: Reports: Other - unable to obtained at this time since the patient is intubated/sedated. - Immunizations Immunizations up to date: Yes Hx Diphtheria, Pertussis, Tetanus Vaccination: Yes Physical Exam - Vital signs Vitals: Temp Pulse Resp BP Pulse Ox 98.0 F 83 24 H 125/81 100 12/20/18 09:22 12/20/18 09:22 12/20/18 09:22 12/20/18 09:22 12/20/18 09:22 Course - Vital Signs Vital signs: Temp Pulse Resp BP Pulse Ox 98.0 F 83 24 H 125/81 100 12/20/18 09:22 12/20/18 09:22 12/20/18 09:22 12/20/18 09:22 12/20/18 09:22 - Laboratory Result Diagrams: 12/20/18 11:07 12/20/18 11:07 Laboratory results interpreted by me: 12/20/18 12/20/18 12/20/18 11:07 11:07 11:07 WBC 10.9 H APTT 20.8 L Chloride 111 H AST 55 H ALT 70 H Urine Protein Urine Ketones Urine Bilirubin Urine Urobilinogen Ur Leukocyte Esterase 12/20/18 13:33 WBC APTT Chloride AST ALT Urine Protein 100 H Urine Ketones 20 H Urine Bilirubin SMALL H Urine Urobilinogen 2.0 H Ur Leukocyte Esterase SMALL H - EKG Interpretation by Me EKG shows normal: Sinus rhythm Rate: Normal - 72 BPM Rhythm: NSR. No: SVT, Arrthymia, A.Fib, V.Tach [place]/QRS: No: LBBB When compared to previous EKG there are: Previous EKG unavailable - No stemi, and reviewed with dr morse. Discharge - Discharge Clinical Impression: Vomiting and diarrhea, Epigastric abdominal pain, History of gastric ulcer, History of hiatal hernia Condition: Good Disposition: HOME, SELF-CARE Instructions: Abdominal Pain ([facility]), Recurring Abdominal Pain, Child ([facility]) Additional Instructions: Follow-up with your PCP and GI doctors in 1 to 2 days. Continue to take your Carafate, Zantac, Phenergan, and Dexilant. [place] diet. Drink plenty of fluids. Avoid caffeine, alcohol, NSAIDs, and soft drinks. We will call you with any abnormal results of your H. pylori test once they result in a few days. Return for any worsening symptoms. Prescriptions: Promethazine HCl [Phenergan 25 mg Tablet] 1 supp ME TID PRN #10 supp.rect PRN Reason: Promethazine HCl 25 mg ME TID PRN #10 supp.rect PRN Reason: Referrals: JOSEPHINE DIMAS DO [Primary Care Provider] - Follow up as needed
--- NOTE | 2018-12-20 10:50 | RADIOLOGY REPORT (SQ) ---
EXAM DESCRIPTION: U/S ABDOMEN LTD W/DOPPLER COMPLETED DATE/TIME: 12/20/2018 10:42 am REASON FOR STUDY: epigastric pain, hx of gastritis COMPARISON: 11/02/2017 TECHNIQUE: Dynamic and static grayscale images acquired of the abdomen and recorded on PACS. Rino marisol selected color Doppler and spectral images recorded. LIMITATIONS: None. FINDINGS: PANCREAS: No masses. Visualized pancreatic duct normal caliber. LIVER: No masses. Echotexture normal. LIVER VASCULATURE: Normal directional flow of the main portal vein and hepatic veins. GALLBLADDER: Surgically absent. ULTRASOUND-DETECTED YOUNGBLOOD'S SIGN: Not applicable. INTRAHEPATIC DUCTS AND COMMON DUCT: CBD and intrahepatic ducts normal caliber. No filling defects. INFERIOR VENA CAVA: Not imaged. AORTA: No aneurysm. RIGHT KIDNEY: Normal size, 9.8 cm. Normal echogenicity. No solid or suspicious masses. No hydronephr osis. No calcifications. PERITONEAL AND RIGHT PLEURAL SPACE: No ascites or effusions. OTHER: No other significant findings. IMPRESSION: NORMAL RIGHT UPPER QUADRANT ULTRASOUND. TECHNICAL DOCUMENTATION: JOB ID: [id number]- All Rights Reserved Reading location - IP/workstation name: [email or web address]
[2018-12-20 11:25] LABS: PROTHROMBIN TIME 13.2 SEC (11.4-15.4)
[2018-12-20 11:26] LABS: PARTIAL THROMBOPLASTIN TIME 20.8 SEC (23.5-35.8)
[2018-12-20 11:27] LABS: HEMATOCRIT 44.1 % (36.0-47.0); HEMOGLOBIN 14.5 g/dL (12.0-15.5); MEAN CORPUSCULAR HEMOGLOBIN 29.6 pg (27.0-33.4); MEAN CORPUSCULAR HGB CONC 32.8 g/dL (32.0-36.0); MEAN CORPUSCULAR VOLUME 90 fl (80-97); RED BLOOD COUNT 4.89 10^6/uL (3.72-5.28); RED CELL DISTRIBUTION WIDTH 13.7 % (11.5-14.0); WHITE BLOOD COUNT 10.9 10^3/uL (4.0-10.5)
[2018-12-20 11:48] LABS: ALANINE AMINOTRANSFERASE 70 U/L (9-52); ALBUMIN 4.3 g/dL (3.5-5.0); ALKALINE PHOSPHATASE 92 U/L (38-126); ANION GAP 8 (5-19); ASPARTATE AMINO TRANSFERASE 55 U/L (14-36); BILIRUBIN,DIRECT 0.3 mg/dL (0.0-0.4); BILIRUBIN,TOTAL 0.5 mg/dL (0.2-1.3); BLOOD UREA NITROGEN 8 mg/dL (7-20); CALCIUM 9.1 mg/dL (8.4-10.2); CARBON DIOXIDE 22 mmol/L (22-30); CHLORIDE 111 mmol/L (98-107); GLUCOSE 81 mg/dL (75-110); LIPASE 54.8 U/L (23-300); POTASSIUM 3.8 mmol/L (3.6-5.0); SODIUM 141.4 mmol/L (137-145); TOTAL PROTEIN 7.5 g/dL (6.3-8.2)
[2018-12-20 11:57] LABS: ABSOLUTE LYMPHOCYTES# (MANUAL) 2.7 10^3/uL (0.5-4.7); ABSOLUTE MONOCYTES # (MANUAL) 0.3 10^3/uL (0.1-1.4); BASOPHILS % (MANUAL) 0 % (0-2); EOSINOPHILS % (MANUAL) 2 % (0-6); LYMPHOCYTES % (MANUAL) 25 % (13-45); MONOCYTES % (MANUAL) 3 % (3-13); SEGMENTED NEUTROPHILS % (MAN) 70 % (42-78); TOTAL CELLS COUNTED 100
[2018-12-20 11:58] LABS: PLATELET CLUMPS PRESENT; PLATELET COMMENT ADEQUATE; PLATELET COUNT 282 10^3/uL (150-450); RBC MORPHOLOGY COMMENT NORMO-CYTIC/CHROMIC
--- NOTE | 2018-12-20 12:02 | RADIOLOGY REPORT (SQ) ---
EXAM DESCRIPTION: CHEST 2 VIEWS COMPLETED DATE/TIME: 12/20/2018 11:36 am REASON FOR STUDY: vomiting, epigastric pain, COMPARISON: 08/02/2018 TECHNIQUE: Frontal and lateral radiographic views of the chest acquired. NUMBER OF VIEWS: Two view. LIMITATIONS: None. FINDINGS: LUNGS AND PLEURA: No opacities, masses or pneumothorax. No pleural effusion. MEDIASTINUM AND HILAR STRUCTURES: No masses or contour abnormalities. HEART AND VASCULAR STRUCTURES: Heart normal size. No evidence for failure. BONES: No acute findings. HARDWARE: None in the chest. OTHER: No other significant finding. IMPRESSION: NO SIGNIFICANT RADIOGRAPHIC FINDING IN THE CHEST. TECHNICAL DOCUMENTATION: JOB ID: [id number] [employer]- All Rights Reserved Reading location - IP/workstation name: [email or web address]
[2018-12-20] MEDS ORDERED: PROMETHAZINE HCL INJ 50 MG/1 ML VIAL IM STA (12:44)
[2018-12-20] MEDS ORDERED: MAG HYDROX/AL HYDROX/SIMETH SUSP 30 ML UDCUP PO ONE (12:45)
[2018-12-20] MEDS ORDERED: LIDOCAINE 2% VISCOUS SOLN 20 ML UDCUP PO ONE (12:45)
[2018-12-20] MEDS ORDERED: NORMAL SALINE 1000 ML 1,000 ML IV ONE (12:47)
[2018-12-20] MEDS ORDERED: PROMETHAZINE HCL INJ 25 MG/1 ML VIAL ONE (12:54)
[2018-12-20 13:51] LABS: APPEARANCE,URINE CLOUDY; BILIRUBIN,URINE SMALL (NEGATIVE); COLOR,URINE AMBER; GLUCOSE, URINE NEGATIVE (NEGATIVE); KETONES,URINE 20 mg/dL (NEGATIVE); LEUKOCYTE ESTERASE,URINE SMALL (NEGATIVE); NITRITE,URINE NEGATIVE (NEGATIVE); PROTEIN,URINE 100 mg/dL (NEGATIVE); URINE SPECIFIC GRAVITY 1.033
[2018-12-20] MEDS ORDERED: DIPHENHYDRAMINE HCL 50 MG/ML VIAL ONE (15:02)
--- NOTE | 2018-12-20 17:53 | EKG REPORT ---
SEVERITY:- NORMAL ECG - SINUS RHYTHM : Confirmed by: You Rosenthal 20-Dec-2018 17:52:25
[2018-12-27 07:05] LABS: HELICOBACTER PYLORI IGA AB <9.0 units (0.0-8.9); HELICOBACTER PYLORI IGG AB 3.95 (0.00-0.79)
== END 2018-12-20 16:02 | disposition home or self-care (01) ==
LOC: ER 09:17
DX: R11.10 Vomiting, unspecified (principal); R19.7 Diarrhea, unspecified; R10.13 Epigastric pain; F17.200 Nicotine dependence, unspecified, uncomplicated
CPT/HCPCS: 93005; 96376; 99285; 96372; 96361; 96374; 96375; 86677 ×3; 36415; 83690; 84703; 85025; 85610; 85730; 80053; 81001; 84484; 71046; 76705; 93976; 93010; J1200; J3490 ×2; J2270; J2550; J2405; J7030

== ENCOUNTER → 2019-01-09 | Outpatient (CLI) | payer MEDICAID ==
[2019-01-09 11:38] LABS: URINE AMPHETAMINES SCREEN NEGATIVE; URINE BARBITURATES SCREEN NEGATIVE; URINE BENZODIAZEPINES SCREEN NEGATIVE; URINE COCAINE SCREEN NEGATIVE; URINE MARIJUANA (THC) SCREEN NEGATIVE; URINE METHADONE SCREEN NEGATIVE; URINE PHENCYCLIDINE SCREEN NEGATIVE
[2019-01-12 08:19] LABS: COTININE 224.2 ng/mL (.); NICOTINE 9.7 ng/mL (.)
== END ==
LOC: OD 10:07
PROVIDERS: ATTEND Surgery
DX: R10.13 Epigastric pain (principal); R11.2 Nausea with vomiting, unspecified; R19.7 Diarrhea, unspecified
CPT/HCPCS: 36415; 82941; 80307; G0480; 80323

== ENCOUNTER 2019-01-23 08:23 | Day surgery (SDC) | payer MEDICAID ==
--- NOTE | 2019-01-22 13:07 | EKG REPORT ---
SEVERITY:- NORMAL ECG - SINUS RHYTHM : Confirmed by: Zachary Ruiz MD 22-Jan-2019 13:06:50
[~2019-01-23 08:23] MED LIST changes: +LACTATED RINGERS 1000 ML IV PRN; +LIDOCAINE 0.5% INJ-PF (5 MG/ML) 50 ML SDV SUBCUT PRN; -PROPOFOL INJ 200 MG/20 ML VIAL IV ONE
[2019-01-23] MEDS ORDERED: ONDANSETRON HCL INJ/PF 4 MG/2 ML SDV ONE (08:29)
[2019-01-23] MEDS ORDERED: ALBUTEROL SULFATE 0.083% NEB 2.5 MG/3 ML AMPUL NEB ONE (09:12)
[2019-01-23] MEDS ORDERED: FAMOTIDINE INJ/PF 20 MG/2 ML SDV IV ONE (09:54)
[2019-01-23] MEDS ORDERED: SCOPOLAMINE HYDROBROMIDE 1.5 MG PATCH.TD72 ONE (09:54)
[2019-01-23 10:13] LABS: URINE AMPHETAMINES SCREEN NEGATIVE; URINE BARBITURATES SCREEN NEGATIVE; URINE BENZODIAZEPINES SCREEN NEGATIVE; URINE COCAINE SCREEN NEGATIVE; URINE MARIJUANA (THC) SCREEN NEGATIVE; URINE METHADONE SCREEN NEGATIVE; URINE PHENCYCLIDINE SCREEN NEGATIVE
[2019-01-23] MEDS ORDERED: MIDAZOLAM 2 MG/2 ML INJ ONE (10:18)
[2019-01-23] MEDS ORDERED: PROPOFOL INJ 200 MG/20 ML VIAL IV ONE (10:19)
--- NOTE | 2019-01-23 11:19 | Discharge Summary ---
Discharge Summary (SDC) - Discharge Final Diagnosis: Severe gastritis, mild duodenitis, hiatal hernia. Date of Surgery: 01/23/19 Discharge Date: 01/23/19 Condition: Stable Treatment or Instructions: Discharge home. Diet as tolerated. Activity: Nonstrenuous. Avoid caffeine, nicotine, NSAIDs, steroids, alcohol, and soda pop. Continue with Carafate, Zantac, and PPI. Follow-up in 2 weeks. Referrals: JOSEPHINE DIMAS DO [Primary Care Provider] - Discharge Diet: As Tolerated Respiratory Treatments at Home: Deep Breathing/Coughing, Incentive Spirometer Discharge Activity: Activity As Tolerated, Balance Activity w/Rest Home Care Assistance: None Needed Report the Following to Your Physician Immediately: Shortness of Breath, Nausea, Vomiting, Increase in Pain, Fever over 101 Degrees, Unusual Bleeding, Redness, Swelling, Warmth
--- NOTE | 2019-01-23 11:22 | Operative Report ---
Nonrecallable Operative Report DATE OF SURGERY: 01/23/19 PREOPERATIVE DIAGNOSIS: Abdominal pain, history of gastric ulcers. POSTOPERATIVE DIAGNOSIS: 1. Severe gastritis with old blood in the stomach. 2. Mild duodenitis. 3. Hiatal hernia, without significant esophageal erosions. OPERATION: EGD with biopsy. SURGEON: FORTINO MAURER ANESTHESIA: LMAC TISSUE REMOVED OR ALTERED: 1. Duodenal bulb. 2. Gastric antrum. 3. Distal esophagus. COMPLICATIONS: None apparent. ESTIMATED BLOOD LOSS: Minimal PROCEDURE: Procedure in detail: After informed consent was obtained, the patient was brought to the operating room and laid in the left lateral decubitus position. The endoscope was passed down the oropharynx, down the esophagus, and into the stomach. This passed easily, without any difficulty. Stomach was insufflated with air. Immediately there was noted to be gastritis extending from the cardia all the way to the antrum. There is old blood within the antrum of the stomach. There is severe gastritis throughout. There were no large, or broad-based gastric ulcers present. The scope was pushed into the first portion of the duodenum, which did appear inflamed. Biopsy was taken in the duodenal bulb. The scope was pushed into the second portion of the duodenum, which appeared normal. The scope was pulled back into the antrum. Biopsy was taken in the antrum, to rule out H. pylori infection. A retroflexion maneuver was then performed. A moderate sized hiatal hernia was identified. The scope was pulled up into the distal esophagus. No significant esophageal erosions were identified. Biopsy was taken at the distal esophagus for verification. The scope was then withdrawn up the remainder of the esophagus. The esophagus was smooth in contour without masses, lesions, or other significant abnormalities. Scope was removed from the oropharynx, and the procedure was concluded. All sponge, instrument, needle counts were correct x2. Condition: Stable.
[2019-01-23 12:33] VITALS: BP 116/78
== END 2019-01-23 12:00 | disposition home or self-care (01) ==
LOC: OROUT 08:23
PROVIDERS: ATTEND Surgery
DX: K29.50 Unspecified chronic gastritis without bleeding (principal); K29.80 Duodenitis without bleeding; K44.9 Diaphragmatic hernia without obstruction or gangrene; Z09 Encounter for follow-up examination after completed treatment for conditions other than malignant neoplasm; Z87.11 Personal history of peptic ulcer disease
CPT/HCPCS: 43239; 93005; 81025; 80307; 88342 ×2; 88305 ×2; 93010; J2250; J3490; J2405; J2704; S0028; 731

== ENCOUNTER → 2019-01-30 | Outpatient (CLI) | payer MEDICAID ==
--- NOTE | 2019-01-30 12:19 | RADIOLOGY REPORT (SQ) ---
EXAM DESCRIPTION: NM GASTRIC EMPTYING STUDY COMPLETED DATE/TIME: 01/30/2019 12:09 pm REASON FOR STUDY: (R10.9)UNSPECIFIED ABDOMINAL PAIN R10.9 UNSPECIFIED ABDOMINAL PAIN K29.70 GASTRI TIS, UNSPECIFIED, WITHOUT BLEEDING COMPARISON: None. RADIONUCLIDE AND DOSE: 2.18 millicuries Tc-99m Sulfur Colloid. Egg salad sandwich The route of agent administration: Oral. TECHNIQUE: 1 minute serial static imaging performed at time of meal, 1 hour, 2 hours, 3 hours, and 4 hours as needed. Once stomach reaches 90% emptying, the test is complete. Image intensity values pl otted with respect to time with linear regression algorithm. LIMITATIONS: None. FINDINGS: Patient was observed for 4 hours. Immediate post meal serves as baseline. Gastric emptying at 90 minutes was 68%. Gastric emptying at 120 minutes was 78% Gastric emptying at 240 minutes was 95%. Normal values: 60 minutes: 30-90% retained. If less than 30%, abnormally rapid emptying. If greater than 90%, del ayed gastric emptying. 120 minutes: <60% retained. If greater than 60%, delayed gastric emptying. 240 minutes: <10% retained. If greater than 10%, delayed gastric emptying. IMPRESSION: NORMAL GASTRIC EMPTYING. TECHNICAL DOCUMENTATION: JOB ID: [id number] [employer]- All Rights Reserved Reading location - IP/workstation name: [email or web address]
== END ==
LOC: RAD 07:40
PROVIDERS: ATTEND Surgery
DX: K29.70 Gastritis, unspecified, without bleeding (principal); R10.9 Unspecified abdominal pain
CPT/HCPCS: 78264; A9541

== ENCOUNTER → 2019-03-19 | Outpatient (CLI) | payer MEDICAID ==
[2019-03-19 12:46] LABS: ABSOLUTE EOSINOPHILS # (AUTO) 0.4 10^3/uL (0.0-0.6); ABSOLUTE LYMPHOCYTES (AUTO) 1.8 10^3/uL (0.5-4.7); ABSOLUTE MONOCYTES (AUTO) 0.5 10^3/uL (0.1-1.4); ABSOLUTE NEUT (AUTO) 6.4 10^3/uL (1.7-8.2); BASOPHILS % (AUTO) 0.5 % (0-2); EOSINOPHILS % (AUTO) 4.7 % (0-6); HEMATOCRIT 42.1 % (36.0-47.0); HEMOGLOBIN 14.1 g/dL (12.0-15.5); MEAN CORPUSCULAR HEMOGLOBIN 30.4 pg (27.0-33.4); MEAN CORPUSCULAR HGB CONC 33.5 g/dL (32.0-36.0); MEAN CORPUSCULAR VOLUME 91 fl (80-97); MONOCYTES % (AUTO) 5.3 % (3-13); PLATELET COUNT 365 10^3/uL (150-450); RED BLOOD COUNT 4.63 10^6/uL (3.72-5.28); RED CELL DISTRIBUTION WIDTH 13.6 % (11.5-14.0); SEGMENTED NEUTROPHILS % (AUTO) 69.5 % (42-78); TOTAL CELLS COUNTED % (AUTO) 100 %; WHITE BLOOD COUNT 9.2 10^3/uL (4.0-10.5)
[2019-03-19 13:09] LABS: ALBUMIN 4.4 g/dL (3.5-5.0); ALKALINE PHOSPHATASE 87 U/L (38-126); AMYLASE 53 U/L (30-110); ANION GAP 12 (5-19); ASPARTATE AMINO TRANSFERASE 30 U/L (14-36); BILIRUBIN,DIRECT 0.2 mg/dL (0.0-0.4); BILIRUBIN,TOTAL 0.4 mg/dL (0.2-1.3); BLOOD UREA NITROGEN 7 mg/dL (7-20); CALCIUM 9.7 mg/dL (8.4-10.2); CARBON DIOXIDE 22 mmol/L (22-30); CHLORIDE 105 mmol/L (98-107); GLUCOSE 74 mg/dL (75-110); POTASSIUM 4.4 mmol/L (3.6-5.0); TOTAL PROTEIN 7.3 g/dL (6.3-8.2)
[2019-03-19 13:12] LABS: C-REACTIVE PROTEIN < 5.0 mg/L (<10.0)
[2019-03-19 13:25] LABS: ERYTHROCYTE SEDIMENTATION RATE 14 mm/hr (0-20)
== END ==
LOC: OD 11:55
PROVIDERS: ATTEND Family Medicine
DX: G43.A1 Cyclical vomiting, in migraine, intractable (principal); R10.13 Epigastric pain
CPT/HCPCS: 36415; 80053; 82150; 83690; 84443; 85025; 85652; 86140

== ENCOUNTER 2019-04-16 09:59 | Day surgery (SDC) | payer MEDICAID ==
[~2019-04-16 09:59] MED LIST changes: -LACTATED RINGERS 1000 ML IV PRN; -LIDOCAINE 0.5% INJ-PF (5 MG/ML) 50 ML SDV SUBCUT PRN; +PROPOFOL INJ 200 MG/20 ML VIAL IV ONE
[2019-04-16] MEDS ORDERED: ONABOTULINUMTOXINA INJ/PF 100 UNIT SDV IJ ONE (10:30)
[2019-04-16] MEDS ORDERED: PROMETHAZINE HCL INJ 25 MG/1 ML VIAL IV ONE (10:30)
[2019-04-16] MEDS ORDERED: DIAZEPAM 5 MG TABLET ONE (10:36)
[2019-04-16] MEDS ORDERED: PROMETHAZINE HCL INJ 25 MG/1 ML VIAL ONE (10:42)
--- NOTE | 2019-04-16 11:47 | Operative Report ---
Operative Report DATE OF SURGERY: 04/16/19 Operative Report: The risks benefits and alternatives of the procedure explained to the patient in detail and informed consent is obtained.A GIF Olympus video scope was inserted into the patient's mouth and hypopharynx, the esophagus is identified intubated and insufflated, the scope was then advanced through the esophagus stomach and duodenum, retroflexion maneuver is done, the esophagus stomach and first and second portions of the duodenum examined. PREOPERATIVE DIAGNOSIS: Nausea vomiting POSTOPERATIVE DIAGNOSIS: Gastritis status post biopsy. Hiatal hernia. Botox injection at the gastric outlet 100 units and 4 mL with 1 mL per quadrant injection OPERATION: EGD with submucosal injection. EGD with biopsy SURGEON: ISSAC BROOKE ANESTHESIA: LMAC TISSUE REMOVED OR ALTERED: As noted above. COMPLICATIONS: None. ESTIMATED BLOOD LOSS: None. INTRAOPERATIVE FINDINGS: As noted above. PROCEDURE: Patient tolerated the procedure well. No immediate postprocedure complications are noted. Patient is discharged in good condition. Discharge date 04/16/2019. Discharge diet: Regular. Discharge activity: Regular. 2 to 3-week follow-up to discuss findings. Patient is instructed to call the office or proceed to the emergency room should there be any further problems or questions. Wait on the pathology.
[2019-04-16 12:24] VITALS: BP 119/78
[2019-04-17] MEDS ORDERED: LIDOCAINE 0.5% INJ-PF (5 MG/ML) 50 ML SDV SUBCUT PRN (05:00)
[2019-04-17] MEDS ORDERED: LACTATED RINGERS 1000 ML IV PRN (05:00)
== END 2019-04-16 12:26 | disposition home or self-care (01) ==
LOC: END 09:59
PROVIDERS: ATTEND Internal Medicine Gastroenterology
DX: K29.50 Unspecified chronic gastritis without bleeding (principal); K44.9 Diaphragmatic hernia without obstruction or gangrene; Z87.11 Personal history of peptic ulcer disease; F17.210 Nicotine dependence, cigarettes, uncomplicated; Z79.899 Other long term (current) drug therapy
CPT/HCPCS: 43236; 43239; 88305 ×2; 00731; J3490; J2550; J2704; J0585; 731

== ENCOUNTER 2019-04-20 10:30 | Emergency (ER) | payer MEDICAID ==
--- NOTE | 2019-04-20 10:54 | ER Document Report ---
ED Medical Screen (RME) - General Chief Complaint: Abdominal Pain Stated Complaint: VOMITING, ABDOMINAL PAIN Time Seen by Provider: 04/20/19 10:51 Primary Care Provider: JOSEPHINE DIMAS DO [Primary Care Provider] - Follow up as needed Mode of Arrival: Ambulatory Information source: Patient Notes: 33-year-old female presented to ED for complaint of abdominal pain nausea and vomiting. She states she just had a Botox injection into her stomach under general anesthesia on Tuesday. She states they have paged Dr. Hardin and he supposed to be coming over to see her in the ED. Patient is alert oriented respirations regular nonlabored she is doubled over for pain. She denies any fever she states she is having nausea and vomiting. She states she is vomited about 3 times today with numerous diarrhea. She states that she was seen because "something about her stomach not opening and closing right". States this makes her throw up all the time. I have greeted and performed a rapid initial assessment of this patient. A comprehensive ED assessment and evaluation of the patient, analysis of test results and completion of medical decision making process will be conducted by an additional ED providers. TRAVEL OUTSIDE OF THE [place] IN LAST 30 DAYS: No - Related Data Allergies/Adverse Reactions: acetaminophen Allergy (Severe, Verified 12/20/18 09:18) Anaphylaxis Penicillins Allergy (Severe, Verified 12/20/18 09:18) Anaphylaxis morphine Adverse Reaction (Intermediate, Verified 01/01/19 00:39) [place] Past Medical History - Past Medical History Cardiac Medical History: Denies: Hx Atrial Fibrillation, Hx Congestive Heart Failure, Hx Coronary Artery Disease, Hx DVT, Hx Heart Attack, Hx Hypercholesterolemia, Hx Hypertension, Hx Peripheral Vascular Disease, Hx Pulmonary Embolism Pulmonary Medical History: Denies: Hx Asthma, Hx Bronchitis, Hx COPD, Hx Pneumonia Neurological Medical History: Denies: Hx Cerebrovascular Accident, Hx Seizures Renal/ Medical History: Denies: Hx Peritoneal Dialysis Musculoskeltal Medical History: Denies Hx Arthritis Psychiatric Medical History: Reports: Hx Attention Deficit Hyperactivity Disorder, Hx Bipolar Disorder, Hx Depression Past Surgical History: Reports: Hx Cholecystectomy, Other - unable to obtained at this time since the patient is intubated/sedated. - Immunizations Immunizations up to date: Yes Hx Diphtheria, Pertussis, Tetanus Vaccination: No Physical Exam - Vital signs Vitals: Temp Pulse Resp BP Pulse Ox 98.1 F 96 24 H 154/95 H 100 04/20/19 10:40 04/20/19 10:40 04/20/19 10:40 04/20/19 10:40 04/20/19 10:40 Course - Vital Signs Vital signs: Temp Pulse Resp BP Pulse Ox 98.1 F 96 24 H 154/95 H 100 04/20/19 10:40 04/20/19 10:40 04/20/19 10:40 04/20/19 10:40 04/20/19 10:40 Doctor's Discharge - Discharge Referrals: JOSEPHINE DIMAS DO [Primary Care Provider] - Follow up as needed
[2019-04-20] MEDS ORDERED: ONDANSETRON 4 MG TAB.RAPDIS PO ONE (10:55)
[2019-04-20 11:42] LABS: APPEARANCE,URINE CLOUDY; BILIRUBIN,URINE NEGATIVE (NEGATIVE); COLOR,URINE YELLOW; GLUCOSE, URINE NEGATIVE (NEGATIVE); KETONES,URINE NEGATIVE (NEGATIVE); PROTEIN,URINE NEGATIVE (NEGATIVE); URINE SPECIFIC GRAVITY 1.016
[2019-04-20 11:56] LABS: HEMATOCRIT 43.5 % (36.0-47.0); HEMOGLOBIN 14.8 g/dL (12.0-15.5); MEAN CORPUSCULAR HEMOGLOBIN 30.8 pg (27.0-33.4); MEAN CORPUSCULAR HGB CONC 34.1 g/dL (32.0-36.0); MEAN CORPUSCULAR VOLUME 90 fl (80-97); PLATELET COUNT 498 10^3/uL (150-450); RED BLOOD COUNT 4.81 10^6/uL (3.72-5.28); RED CELL DISTRIBUTION WIDTH 13.8 % (11.5-14.0); WHITE BLOOD COUNT 8.4 10^3/uL (4.0-10.5)
[2019-04-20 12:04] LABS: ALBUMIN 4.3 g/dL (3.5-5.0); ALKALINE PHOSPHATASE 108 U/L (38-126); ANION GAP 12 (5-19); ASPARTATE AMINO TRANSFERASE 27 U/L (14-36); BILIRUBIN,DIRECT 0.2 mg/dL (0.0-0.4); BILIRUBIN,TOTAL 0.4 mg/dL (0.2-1.3); BLOOD UREA NITROGEN 6 mg/dL (7-20); CALCIUM 10.2 mg/dL (8.4-10.2); CARBON DIOXIDE 18 mmol/L (22-30); CHLORIDE 112 mmol/L (98-107); GLUCOSE 92 mg/dL (75-110); POTASSIUM 4.4 mmol/L (3.6-5.0); TOTAL PROTEIN 7.6 g/dL (6.3-8.2)
[2019-04-20 12:32] LABS: ABSOLUTE LYMPHOCYTES# (MANUAL) 1.3 10^3/uL (0.5-4.7); ABSOLUTE MONOCYTES # (MANUAL) 0.3 10^3/uL (0.1-1.4); BASOPHILS % (MANUAL) 1 % (0-2); EOSINOPHILS % (MANUAL) 4 % (0-6); LYMPHOCYTES % (MANUAL) 15 % (13-45); MONOCYTES % (MANUAL) 4 % (3-13); SEGMENTED NEUTROPHILS % (MAN) 75 % (42-78); TOTAL CELLS COUNTED 100
[2019-04-20] MEDS ORDERED: RINGERS SOLUTION,LACTATED 1,000 ML IV ONE (12:32)
[2019-04-20 12:33] LABS: PLATELET COMMENT INCREASED; RBC MORPHOLOGY COMMENT NORMO-CYTIC/CHROMIC
[2019-04-20] MEDS ORDERED: METOCLOPRAMIDE HCL INJ/PF 10 MG/2 ML SDV IV ONE (12:48)
--- NOTE | 2019-04-20 12:49 | ER Document Report ---
ED General - General Chief Complaint: Abdominal Pain Stated Complaint: VOMITING, ABDOMINAL PAIN Time Seen by Provider: 04/20/19 10:51 Primary Care Provider: [facility] [Provider Group] - Follow up in 1 week JOSEPHINE DIMAS DO [Primary Care Provider] - Follow up as needed Mode of Arrival: Ambulatory Notes: Patient is a 33-year-old female who presents emergency department with a chief complaint of left upper abdominal pain. She has had her pain for the past almost year. Patient saw Dr. Alejandre, the bricklayer on Tuesday to have Botox injections in her stomach. Patient states that she continues to have pain. Patient denies any fever, lower abdominal pain, diarrhea. The pain does not radiate. She denies dysuria. Denies vaginal bleeding, odor, or discharge. TRAVEL OUTSIDE OF THE [place] IN LAST 30 DAYS: No - Related Data Allergies/Adverse Reactions: acetaminophen Allergy (Severe, Verified 12/20/18 09:18) Anaphylaxis Penicillins Allergy (Severe, Verified 12/20/18 09:18) Anaphylaxis morphine Adverse Reaction (Intermediate, Verified 01/01/19 00:39) [place] Past Medical History - General Information source: Patient - Social History Smoking Status: Never Smoker Chew tobacco use (# tins/day): No Frequency of alcohol use: None Drug Abuse: None Family History: Other - unknown Patient has suicidal ideation: No Patient has homicidal ideation: No - Past Medical History Cardiac Medical History: Denies: Hx Atrial Fibrillation, Hx Congestive Heart Failure, Hx Coronary Artery Disease, Hx DVT, Hx Heart Attack, Hx Hypercholesterolemia, Hx Hypertension, Hx Peripheral Vascular Disease, Hx Pulmonary Embolism Pulmonary Medical History: Denies: Hx Asthma, Hx Bronchitis, Hx COPD, Hx Pneumonia Neurological Medical History: Denies: Hx Cerebrovascular Accident, Hx Seizures Renal/ Medical History: Denies: Hx Peritoneal Dialysis Musculoskeletal Medical History: Denies Hx Arthritis Psychiatric Medical History: Reports: Hx Attention Deficit Hyperactivity Disorder, Hx Bipolar Disorder, Hx Depression Past Surgical History: Reports: Hx Cholecystectomy, Other - unable to obtained at this time since the patient is intubated/sedated. - Immunizations Immunizations up to date: Yes Hx Diphtheria, Pertussis, Tetanus Vaccination: No Review of Systems - Review of Systems Notes: REVIEW OF SYSTEMS: CONSTITUTIONAL : Denies recent illness. Denies recent unintentional weight loss. Denies fever, chills, or sweats. EENT: Denies eye, ear, throat, or mouth pain, discharge, or symptoms. Denies nasal or sinus congestion. CARDIOVASCULAR: Denies chest pain. RESPIRATORY: Denies shortness of breath, cough, congestion, difficulty breathing, or wheezing. GASTROINTESTINAL: See HPI. GENITOURINARY: Denies difficulty urinating, burning, blood in urine, urgency or frequency. MUSCULOSKELETAL: Denies neck and back pain. Denies joint pain or swelling. SKIN: Denies rash, itchiness, or lesions HEMATOLOGIC : Denies easy bruising or bleeding. LYMPHATIC: Denies swollen, painful, enlarged glands. NEUROLOGICAL: Denies no numbness or tingling denies weakness. Denies headache. Denies altered mental status. Denies alteration in speech. PSYCHIATRIC: Denies stress, anxiety, alteration in sleep patterns, or depression. All other systems reviewed and negative. Physical Exam - Vital signs Vitals: Temp Pulse Resp BP Pulse Ox 98.1 F 96 24 H 154/95 H 100 04/20/19 10:40 04/20/19 10:40 04/20/19 10:40 04/20/19 10:40 04/20/19 10:40 - Notes Notes: PHYSICAL EXAMINATION: GENERAL: Appears well, healthy, well-nourished, no acute distress. HEAD: Normocephalic, atraumatic. EYES: PERRL, conjunctiva normal, all extraocular movements intact, sclera nonicteric ENT: Moist mucous membranes. NECK: Supple, no noticeable swelling, redness, rash. Normal range of motion. LUNGS: Equal breath sounds bilaterally and clear to auscultation. No wheezes rales or rhonchi. CARDIOVASCULAR: S1-S2, regular rate, regular rhythm. Radial pulses 2+, normal. ABDOMEN: Normoactive bowel sounds. Soft, tender left upper abdomen, no guarding, no rebound tenderness, and no masses palpated. EXTREMITIES: Normal strength and range of motion, no pitting or edema. No cyanosis. NEUROLOGICAL: Moves all extremities upon command. Strength 5/5 in all extremities. PSYCH: Normal mood, normal affect. SKIN: Warm, dry. No rash, lesions, ulcerations noted. Normal skin turgor. Course - Re-evaluation Re-evalutation: 04/20/19 12:[address] Hardin and he states that this time, there is not much that he can do for her. I will give her a dose of Reglan to see if this helps, as she has not taken this medication to help with her abdominal pain or nausea. Patient's hCG is positive. She will be sent for a transvaginal ultrasound. She will also be given IV fluids. 04/21/19 13:45 Patient's ultrasound shows an intrauterine with a 2 x 3 x 3 mm fluid structure in the mid and endometrium. This is consistent with her hCG level of 1086. Patient states that she feels better after receiving Reglan. She will be sent home with Reglan and follow-up with [facility]. She will also be started on Keflex for urinary tract infection. She is in agreement with this plan. Follow-up precautions were given. Verbal discharge instructions were given to the patient. They verbalized understanding. They are stable for discharge. - Vital Signs Vital signs: Temp Pulse Resp BP Pulse Ox 98.0 F 78 16 124/83 98 04/20/19 15:32 04/20/19 15:32 04/20/19 15:32 04/20/19 15:32 04/20/19 15:32 - Laboratory Result Diagrams: 04/20/19 11:30 04/20/19 11:30 Laboratory results interpreted by me: 04/20/19 04/20/19 04/20/19 11:24 11:30 11:30 Plt Count 498 H Chloride 112 H Carbon Dioxide 18 L BUN 6 L Serum HCG, Qual Beta HCG, Quant Urine Urobilinogen 2.0 H Leukocyte Esterase Rfl LARGE H Urine Ascorbic Acid 40 H 04/20/19 04/20/19 11:30 11:30 Plt Count Chloride Carbon Dioxide BUN Serum HCG, Qual POSITIVE H Beta HCG, Quant 1086.40 H Urine Urobilinogen Leukocyte Esterase Rfl Urine Ascorbic Acid Discharge - Discharge Clinical Impression: Abdominal pain Qualifiers: Abdominal location: left upper quadrant Qualified Code(s): R10.12 - Left upper quadrant pain Qualifiers: Weeks of gestation: less than 8 weeks Qualified Code(s): Z3A.01 - Less than 8 weeks gestation of Urinary tract infection Qualifiers: Urinary tract infection type: acute cystitis Hematuria presence: without hematuria Qualified Code(s): N30.00 - Acute cystitis without hematuria Condition: Stable Disposition: HOME, SELF-CARE Instructions: Abdominal Pain ([facility]), Antinausea Medication ([facility]), Urinary Tract Infection ([facility]) Additional Instructions: You were seen today in the emergency department for abdominal pain and vomiting. You are and have a urinary tract infection. You are being sent home with Reglan, antinausea medication. Take it as prescribed. You are also being sent home with antibiotics. Make sure you take all your antibiotics as prescribed. Please follow-up with SUPERVISOR TRAVEL TRAILER in regards to this visit. If you have worsening symptoms, please return to the emergency department. Prescriptions: Cephalexin [Keflex] 500 mg PO BID #14 capsule Metoclopramide HCl [Reglan 10 mg Tablet] 10 mg PO ACHS #120 tablet Forms: Return to Work Referrals: JOSEPHINE DIMAS DO [Primary Care Provider] - Follow up as needed [facility] [Provider Group] - Follow up in 1 week
--- NOTE | 2019-04-20 15:07 | RADIOLOGY REPORT (SQ) ---
EXAM DESCRIPTION: U/S OB TRANSVAG W/DOPPLER COMPLETED DATE/TIME: 04/20/2019 2:53 pm REASON FOR STUDY: positive HCG; unknown LMP COMPARISON: None. TECHNIQUE: Transvaginal static and realtime grayscale images acquired of the pelvis. Additional francine cted spectral and color Doppler images recorded. All images stored on PACs. CLINICAL AGE: Unknown BHC,086 LIMITATIONS: None. FINDINGS: UTERUS: Possible intrauterine with a 2 x 3 x 3 mm fluid structure in the endomet rium, possible gestational sac. RIGHT ADNEXA: Ovary not identified due to poor acoustical window. No adnexal free fluid. No adnexal masses. LEFT ADNEXA: Ovary not identified due to poor acoustical window. No adnexal free fluid. No adnexal masses. FREE FLUID: None. OTHER: No other significant finding. IMPRESSION: Possible intrauterine with a 2 x 3 x 3 mm fluid structure in the endometrium, possible gestational sac. Ovaries not identified. No adnexal fluid. FOLLOW-UP ULTRASOUND AND SERIAL BHCG LEVELS STRONGLY RECOMMENDED TO ACCURATELY ASSESS STATU S. TECHNICAL DOCUMENTATION: JOB ID: [id number] [id number] 2010 [employer]- All Rights Reserved Reading location - IP/workstation name: [email or web address]
[2019-04-20 15:32] VITALS: BP 124/83
== END 2019-04-20 15:34 | disposition home or self-care (01) ==
LOC: ER 10:30
DX: O23.11 Infections of bladder in pregnancy, first trimester (principal); O26.891 Other specified pregnancy related conditions, first trimester; R10.12 Left upper quadrant pain; R10.812 Left upper quadrant abdominal tenderness; R11.0 Nausea; Z3A.01 Less than 8 weeks gestation of pregnancy; Z90.49 Acquired absence of other specified parts of digestive tract; Z87.892 Personal history of anaphylaxis; Z88.8 Allergy status to other drugs, medicaments and biological substances; Z88.0 Allergy status to penicillin
CPT/HCPCS: 99284; 96361; 96374; 36415; 87086; 84702; 83690; 84703; 85025; 80053; 81001; 76817; 93976; S0119; J2765; J7120

== ENCOUNTER 2019-08-22 11:28 | Emergency (ER) | payer MEDICAID | END 2019-08-22 12:53 | disposition left against medical advice (07) | LOC: ER 11:28 | DX: Z53.21 Procedure and treatment not carried out due to patient leaving prior to being seen by health care provider (principal) ==

== ENCOUNTER 2019-11-09 10:34 | Outpatient (CLI) | payer MEDICAID ==
[2019-11-09 11:41] LABS: HEMATOCRIT 37.1 % (36.0-47.0); HEMOGLOBIN 12.4 g/dL (12.0-15.5); MEAN CORPUSCULAR HEMOGLOBIN 29.7 pg (27.0-33.4); MEAN CORPUSCULAR HGB CONC 33.5 g/dL (32.0-36.0); MEAN CORPUSCULAR VOLUME 89 fl (80-97); PLATELET COUNT 619 10^3/uL (150-450); RED BLOOD COUNT 4.19 10^6/uL (3.72-5.28); RED CELL DISTRIBUTION WIDTH 13.5 % (11.5-14.0); WHITE BLOOD COUNT 16.8 10^3/uL (4.0-10.5)
[2019-11-09 11:56] LABS: ALBUMIN 3.2 g/dL (3.5-5.0); ALKALINE PHOSPHATASE 138 U/L (38-126); ANION GAP 9 (5-19); ASPARTATE AMINO TRANSFERASE 33 U/L (14-36); BILIRUBIN,DIRECT 0.1 mg/dL (0.0-0.4); BILIRUBIN,TOTAL 0.4 mg/dL (0.2-1.3); BLOOD UREA NITROGEN 6 mg/dL (7-20); CALCIUM 8.8 mg/dL (8.4-10.2); CARBON DIOXIDE 17 mmol/L (22-30); CHLORIDE 107 mmol/L (98-107); GLUCOSE 70 mg/dL (75-110); POTASSIUM 4.3 mmol/L (3.6-5.0); TOTAL PROTEIN 6.5 g/dL (6.3-8.2); URIC ACID 2.4 mg/dL (2.5-6.2)
[2019-11-09 11:59] LABS: APPEARANCE,URINE CLEAR; BILIRUBIN,URINE NEGATIVE (NEGATIVE); COLOR,URINE STRAW; GLUCOSE, URINE NEGATIVE (NEGATIVE); KETONES,URINE NEGATIVE (NEGATIVE); LEUKOCYTE ESTERASE,URINE NEGATIVE (NEGATIVE); NITRITE,URINE NEGATIVE (NEGATIVE); PROTEIN,URINE NEGATIVE (NEGATIVE); URINE SPECIFIC GRAVITY 1.003; UROBILINOGEN,URINE NEGATIVE mg/dL (<2.0)
[2019-11-09 12:21] LABS: URINE AMPHETAMINES SCREEN NEGATIVE; URINE BARBITURATES SCREEN NEGATIVE; URINE BENZODIAZEPINES SCREEN NEGATIVE; URINE COCAINE SCREEN NEGATIVE; URINE MARIJUANA (THC) SCREEN NEGATIVE; URINE METHADONE SCREEN NEGATIVE; URINE PHENCYCLIDINE SCREEN NEGATIVE
[2019-11-09 12:26] LABS: UR PRO/CREAT RATIO RESULT 0.5 mg/mg (0.0-0.2); URINE CREATININE 31.3 mg/dL (16-327); URINE PROTEIN 16.2 mg/dL (<12)
[2019-11-09] MEDS ORDERED: BETAMET ACET/BETAMET NA INJ 6 MG/1 ML ONE (12:41)
--- NOTE | 2019-11-09 12:55 | Non Stress Test Report ---
Non Stress Test Datetime Report Generated by CPN: 11/09/2019 12:55 DEMOGRAPHIC EGA NST: 33.5 MONITORING Monitor Explained: Monitor Explained; Test Explained; Patient Verbalized Understanding Time on Monitor: 11/09/2019 11:28 Time off Monitor: 11/09/2019 12:51 NST Duration: 83 NST INTERVENTIONS NST Interventions: PO Hydration; Reposition Patient Physician Notified NST: Shanna Agudelo, CNWellington BABY A: [id number] BABY A Movement : Present Contraction Frequency : None FHR Baseline : 135 Accelerations : 15X15 Decelerations : None Variability : Moderate 6-25bpm NST Review: Meets Criteria for Reactive NST NST Review and Verified By : JNiebuhr,RN NST Results: Reactive NST REPORT Report Trigger: Send Report
[2019-11-10] MEDS ORDERED: BETAMET ACET/BETAMET NA INJ 6 MG/1 ML IM SCH (12:42)
[2019-11-11 08:34] LABS: HEPATITS B SURFACE ANTIGEN Negative (Negative)
== END 2019-11-09 12:53 | disposition home or self-care (01) ==
LOC: LC 10:34
PROVIDERS: ATTEND Obstetrics & Gynecology
DX: O16.3 Unspecified maternal hypertension, third trimester (principal); Z3A.33 33 weeks gestation of pregnancy; Z88.0 Allergy status to penicillin; Z88.6 Allergy status to analgesic agent
CPT/HCPCS: 59025; 96372; 87521; 36415; 84156; 84550; 82570; 85027; 80053; 81001; 87522; 87340; 86701; 80307; J0702

== ENCOUNTER 2019-11-10 12:12 | Outpatient (CLI) | payer MEDICAID ==
[2019-11-10] MEDS ORDERED: BETAMET ACET/BETAMET NA INJ 6 MG/1 ML ONE (12:18)
[2019-11-10] MEDS ORDERED: BETAMET ACET/BETAMET NA INJ 6 MG/1 ML IM ONE (12:45)
[2019-11-10 13:25] LABS: 24 HOUR URINE PROTEIN RESULT 214 mg/day (42-225); URINE PROTEIN 13.2 mg/dL (<12)
== END 2019-11-10 12:36 | disposition home or self-care (01) ==
LOC: LC 12:12
PROVIDERS: ATTEND Obstetrics & Gynecology Gynecology
DX: O16.3 Unspecified maternal hypertension, third trimester (principal); Z3A.33 33 weeks gestation of pregnancy; Z88.0 Allergy status to penicillin; Z88.6 Allergy status to analgesic agent
CPT/HCPCS: 96372; 84156; J0702

== ENCOUNTER 2019-11-22 13:51 | Outpatient (CLI) | payer MEDICAID ==
[2019-11-22 14:39] LABS: APPEARANCE,URINE SLIGHTLY-CLOUDY; BILIRUBIN,URINE NEGATIVE (NEGATIVE); COLOR,URINE YELLOW; GLUCOSE, URINE NEGATIVE (NEGATIVE); KETONES,URINE NEGATIVE (NEGATIVE); LEUKOCYTE ESTERASE,URINE NEGATIVE (NEGATIVE); NITRITE,URINE NEGATIVE (NEGATIVE); PROTEIN,URINE NEGATIVE (NEGATIVE); URINE SPECIFIC GRAVITY 1.025
[2019-11-22 14:52] LABS: URINE AMPHETAMINES SCREEN NEGATIVE; URINE BARBITURATES SCREEN NEGATIVE; URINE BENZODIAZEPINES SCREEN NEGATIVE; URINE COCAINE SCREEN NEGATIVE; URINE MARIJUANA (THC) SCREEN NEGATIVE; URINE METHADONE SCREEN NEGATIVE; URINE PHENCYCLIDINE SCREEN NEGATIVE
[2019-11-22 14:58] LABS: UR PRO/CREAT RATIO RESULT 0.1 mg/mg (0.0-0.2); URINE CREATININE 178.1 mg/dL (16-327); URINE PROTEIN 21.1 mg/dL (<12)
[2019-11-22 15:06] LABS: ABSOLUTE BASOPHILS # (AUTO) 0.1 10^3/uL (0.0-0.2); ABSOLUTE LYMPHOCYTES (AUTO) 1.6 10^3/uL (0.5-4.7); ABSOLUTE MONOCYTES (AUTO) 0.6 10^3/uL (0.1-1.4); ABSOLUTE NEUT (AUTO) 12.5 10^3/uL (1.7-8.2); BASOPHILS % (AUTO) 0.9 % (0-2); EOSINOPHILS % (AUTO) 0.2 % (0-6); HEMOGLOBIN 12.4 g/dL (12.0-15.5); LYMPHOCYTES % (AUTO) 10.5 % (13-45); MEAN CORPUSCULAR HEMOGLOBIN 29.8 pg (27.0-33.4); MEAN CORPUSCULAR HGB CONC 34.4 g/dL (32.0-36.0); MEAN CORPUSCULAR VOLUME 87 fl (80-97); PLATELET COUNT 475 10^3/uL (150-450); RED BLOOD COUNT 4.15 10^6/uL (3.72-5.28); RED CELL DISTRIBUTION WIDTH 13.3 % (11.5-14.0); SEGMENTED NEUTROPHILS % (AUTO) 84.4 % (42-78); TOTAL CELLS COUNTED % (AUTO) 100 %; WHITE BLOOD COUNT 14.8 10^3/uL (4.0-10.5)
[2019-11-22 15:27] LABS: ALBUMIN 3.2 g/dL (3.5-5.0); ALKALINE PHOSPHATASE 145 U/L (38-126); ANION GAP 8 (5-19); ASPARTATE AMINO TRANSFERASE 25 U/L (14-36); BILIRUBIN,TOTAL 0.3 mg/dL (0.2-1.3); BLOOD UREA NITROGEN 12 mg/dL (7-20); CALCIUM 9.8 mg/dL (8.4-10.2); CARBON DIOXIDE 22 mmol/L (22-30); CHLORIDE 100 mmol/L (98-107); GLUCOSE 88 mg/dL (75-110); POTASSIUM 4.2 mmol/L (3.6-5.0); TOTAL PROTEIN 6.3 g/dL (6.3-8.2); URIC ACID 2.4 mg/dL (2.5-6.2)
[2019-11-22 16:02] LABS: CHLAM PCR NOT DETECTED (NOT DETECT)
== END 2019-11-22 15:53 | disposition home or self-care (01) ==
LOC: LC 13:51
PROVIDERS: ATTEND Obstetrics & Gynecology
DX: O14.93 Unspecified pre-eclampsia, third trimester (principal); O99.333 Smoking (tobacco) complicating pregnancy, third trimester; F17.210 Nicotine dependence, cigarettes, uncomplicated; Z3A.35 35 weeks gestation of pregnancy; Z88.0 Allergy status to penicillin; Z88.6 Allergy status to analgesic agent
CPT/HCPCS: 36415; 80053; 80307; 81001; 82570; 83615; 84156; 84550; 85025; 87081; 87491; 87591

== ENCOUNTER 2019-11-29 18:18 | Outpatient (CLI) | payer MEDICAID | END 2019-11-29 19:24 | disposition home or self-care (01) | LOC: LC 18:18 | PROVIDERS: ATTEND Student in an Organized Health Care Education/Training Program | DX: O99.333 Smoking (tobacco) complicating pregnancy, third trimester (principal); F17.210 Nicotine dependence, cigarettes, uncomplicated; Z3A.36 36 weeks gestation of pregnancy; Z88.0 Allergy status to penicillin; Z88.6 Allergy status to analgesic agent | CPT/HCPCS: 59025 ==

== ENCOUNTER 2019-12-05 02:41 | Inpatient (IN) | payer MEDICAID ==
[2019-12-05] MEDS ORDERED: OXYTOCIN 10 UNIT/ML VIAL ONE (03:00)
[2019-12-05] MEDS ORDERED: LIDOCAINE 1% INJ-PF (10 MG/ML) 30 ML SDV ONE (03:00)
[2019-12-05] MEDS ORDERED: OXYTOCIN/0.9 % SODIUM CHLORIDE 0 UNIT/0 ML RTUINJ ONE (03:00)
[2019-12-05] MEDS ORDERED: MISOPROSTOL 0.2 MG TABLET ONE (03:00)
[2019-12-05] MEDS ORDERED: RINGERS SOLUTION,LACTATED 1,000 ML IV PRN (03:15)
[2019-12-05] MEDS ORDERED: RINGERS SOLUTION,LACTATED 1,000 ML IV ONE (03:15)
[2019-12-05] MEDS ORDERED: PSEUDOEPHEDRINE HCL 30 MG TABLET PO PRN (03:16)
[2019-12-05] MEDS ORDERED: OXYTOCIN/0.9 % SODIUM CHLORIDE 30 UNIT/500 ML RTUINJ IV PRN (03:16)
[2019-12-05] MEDS ORDERED: MAGNESIUM HYDROXIDE SUSP 30 ML UDCUP PO PRN (03:16)
[2019-12-05] MEDS ORDERED: NA PHOS,M-B/NA PHOS,DI-BA (ADULT) 133 ML ENEMA PR PRN (03:16)
[2019-12-05] MEDS ORDERED: PROMETHAZINE HCL 25 MG SUPP.RECT PR PRN (03:16)
[2019-12-05] MEDS ORDERED: DIBUCAINE 1% OINTMENT 28 GM TP PRN (03:16)
[2019-12-05] MEDS ORDERED: MISOPROSTOL 0.2 MG TABLET PR PRN (03:16)
[2019-12-05] MEDS ORDERED: MEASLES,MUMPS&RUBELLA VACC/PF 0.5 ML VIAL SUBCUT PRN (03:16)
[2019-12-05] MEDS ORDERED: ZOLPIDEM TARTRATE 5 MG TABLET PO PRN (03:16)
[2019-12-05] MEDS ORDERED: DIPH/PERTUSS(ACELL)/TETANUS VAC/PF 0.5 ML SYR (>=10YO) IM PRN (03:16)
[2019-12-05] MEDS ORDERED: PROMETHAZINE HCL INJ 25 MG/1 ML VIAL IV PRN (03:16)
[2019-12-05] MEDS ORDERED: GLYCERIN/WITCH HAZEL LEAF 1 EACH MED..WIPE TP PRN (03:16)
[2019-12-05] MEDS ORDERED: BENZOCAINE/MENTHOL AEROSOL SPRAY 56 ML TOP PRN (03:16)
[2019-12-05] MEDS ORDERED: DIPHENHYDRAMINE HCL 25 MG CAPSULE PO PRN (03:16)
[2019-12-05] MEDS ORDERED: IBUPROFEN 800 MG TABLET ONE (03:39)
--- NOTE | 2019-12-05 03:43 | Admission Physical ---
Datetime Report Generated by CPN: 12/05/2019 03:43 CURRENT ADMISSION Chief Complaint: Uterine Contractions Indication for Induction: Not Applicable Admit Impression : Term, Intrauterine Admit Plan: Admit to Unit; Initiate Labor Protocol ALLERGIES Medication Allergies: Yes Medication Allergies: Penicillins/SV/Anaphylaxis (11/29/2019); morphine/MO/Flushing (11/29/2019); acetaminophen/SV/Anaphylaxis (11/29/2019) Latex: No Latex Allergies OBSTETRICAL HISTORY EDC: 12/23/2019 00:00 : 3 Para: 1 Term: 1 : 0 SAB: 0 IAB: 1 Livin Gestational Diabetes: No Rh Sensitization: No Incompetent Cervix: No ADDISON: No Infertility: No ART Treatment: No Uterine Anomaly: No IUGR: No Hx Previous C/S: No Macrosomia: No Hx Loss/Stillborn: No PIH: No Hx : No Placenta Previa/Abruption: No Depression/PP Depression: No PTL/PROM: No Post Hemorrhage: No Current Procedures: Ultrasound; NST Obstetrical History Comments: 12/22/2014, 36 weeks, vaginal, female G2-Current SEE RECORDS Alcohol: No Marijuana : No Cocaine: No Other Illicit Drugs: No Cigarettes: Current Everyday Smoker. [id number] Cigarette Frequency: 5 - 10 per day Advised to Stop: Yes Cigarette Comments: !/2 pack per day MEDICAL HISTORY Diabetes: No Blood Transfusion: No Pulmonary Disease (Asthma, TB): No Breast Disease: No Hypertension: No Chief Lending Officer Surgery: No Heart Disease: No Hosp/Surgery: No Autoimmune Disorder: No Anesthetic Complications: No Kidney Disease: No Abnormal Pap Smear: No Neuro/Epilepsy: No Psychiatric Disorders: No Other Medical Diseases: No Hepatitis/Liver Disease: No Significant Family History: No Varicosities/Phlebitis: No Thyroid Dysfunction: No Medical History Comments: UTI complications as a child, gall bladder removal 2019, narrowing of esophagus INFECTIOUS HISTORY Gonorrhea: No Genital Herpes: No Chlamydia: No Tuberculosis: No Syphilis: No Hepatitis: No HIV/AIDS Exposure: No Rash or Viral Illness: No HPV: No PHYSICAL EXAM General: Normal HEENT: Normal Neurologic: Normal Thyroid: Deferred Heart: Normal Lungs: Normal Breast: Deferred Back: Normal Abdomen: Normal Genitourinary Exam: Normal Extremities: Normal DTRs: Normal Pelvic Type: Adequate Vital Signs: Reviewed VAGINAL EXAM Dilatation: 10 Effacement: 100 Station: 3 Contraction Comments: q 2 MEMBRANES Membranes: Ruptured FETUS A EGA: 37.3 Monitoring: External US FHR- Baseline: 145 Accelerations: 15X15 Decelerations: None FHR Category: Category I Presentation: Vertex Admit Comment: 33yo at 37+3ega presents for regular contractions and noted to be c/c/+3 on arrival when membranes spontaneously ruptured membranes. limited care - poor compliance with care. Opioid dep - PCM gives her Oxycodone 5mg QID for hiatal hernia. Small pleural effusion which reportedly resolved. Needs media planner - consult placed. Hep C - new dx since 2014. GHTN. h/o IUGR. Admit and deliver. Will make Nursery aware of oxycodone etc. GBS negative INFORMED CONSENT Informed Consent Obtained: Vaginal Delivery; Risks, Benefits and Alternatives Discussed Signature: with User ID: [email or web address]
[2019-12-05 03:45] LABS: APPEARANCE,URINE CLEAR; BILIRUBIN,URINE NEGATIVE (NEGATIVE); COLOR,URINE YELLOW; GLUCOSE, URINE NEGATIVE (NEGATIVE); KETONES,URINE NEGATIVE (NEGATIVE); LEUKOCYTE ESTERASE,URINE NEGATIVE (NEGATIVE); NITRITE,URINE NEGATIVE (NEGATIVE); PROTEIN,URINE NEGATIVE (NEGATIVE); URINE SPECIFIC GRAVITY 1.011; UROBILINOGEN,URINE NEGATIVE mg/dL (<2.0)
[2019-12-05] MEDS ORDERED: PROMETHAZINE HCL 25 MG TABLET PO PRN (03:58)
[2019-12-05] MEDS ORDERED: SUCRALFATE 1 GM PO PRN (03:58)
[2019-12-05 04:14] LABS: HEMATOCRIT 35.1 % (36.0-47.0); MEAN CORPUSCULAR HEMOGLOBIN 29.2 pg (27.0-33.4); MEAN CORPUSCULAR HGB CONC 34.4 g/dL (32.0-36.0); MEAN CORPUSCULAR VOLUME 85 fl (80-97); PLATELET COUNT 600 10^3/uL (150-450); RED BLOOD COUNT 4.13 10^6/uL (3.72-5.28); RED CELL DISTRIBUTION WIDTH 13.8 % (11.5-14.0); WHITE BLOOD COUNT 22.7 10^3/uL (4.0-10.5)
[2019-12-05 04:18] LABS: ALBUMIN 2.9 g/dL (3.5-5.0); ALKALINE PHOSPHATASE 157 U/L (38-126); ANION GAP 7 (5-19); ASPARTATE AMINO TRANSFERASE 23 U/L (14-36); BILIRUBIN,TOTAL 0.2 mg/dL (0.2-1.3); BLOOD UREA NITROGEN 7 mg/dL (7-20); CALCIUM 8.9 mg/dL (8.4-10.2); CARBON DIOXIDE 18 mmol/L (22-30); CHLORIDE 105 mmol/L (98-107); GLUCOSE 143 mg/dL (75-110); TOTAL PROTEIN 6.1 g/dL (6.3-8.2)
[2019-12-05 04:21] LABS: URINE AMPHETAMINES SCREEN NEGATIVE; URINE BARBITURATES SCREEN NEGATIVE; URINE BENZODIAZEPINES SCREEN NEGATIVE; URINE COCAINE SCREEN NEGATIVE; URINE MARIJUANA (THC) SCREEN NEGATIVE; URINE METHADONE SCREEN NEGATIVE; URINE PHENCYCLIDINE SCREEN NEGATIVE
[2019-12-05 04:40] LABS: ABSOLUTE LYMPHOCYTES# (MANUAL) 1.1 10^3/uL (0.5-4.7); ABSOLUTE MONOCYTES # (MANUAL) 0.2 10^3/uL (0.1-1.4); BAND NEUTROPHILS % (MANUAL) 1 % (3-5); BASOPHILS % (MANUAL) 0 % (0-2); EOSINOPHILS % (MANUAL) 0 % (0-6); LYMPHOCYTES % (MANUAL) 4 % (13-45); MONOCYTES % (MANUAL) 1 % (3-13); SEGMENTED NEUTROPHILS % (MAN) 93 % (42-78); TOTAL CELLS COUNTED 100
[2019-12-05 04:41] LABS: PLATELET COMMENT INCREASED; TOXIC GRANULATION SLIGHT
--- NOTE | 2019-12-05 04:59 | Delivery Summary ---
Del Sum A-C Datetime Report Generated by CPN: 12/05/2019 04:58 DELIVERY PERSONNEL DELIVERY PERSONNEL: [id number] Delivery Doctor:: Juliette River MD Labor and Delivery Nurse:: MAHI Chance Labor and Delivery Nurse:: Atiya Coffey RN Nursery Nurse:: Maryolu Casey RN Nursery Nurse:: Consuelo Park RN Aircraft Loadmaster Superintendent/LABORATORY PHLEBOTOMIST: Margarita Mcfarland, ST MATERNAL INFORMATION Delivery Anesthesia: None Medications After Delivery: Pitocin 10 Units IM; Cytotec 1000mcg Per Rectum/Vagina Estimated Blood Loss (ml): 200 Delivery QBL: 200 Delivery QBL Comment: 200 delivery 114 recovery Maternal Complications: Precipitous Labor (<3hrs) Provider Comments: VMI delivered in ELSA presentation. No nuchal cord. Shoulders and body delivered without difficulty. COrd doubly clamped and cut. to maternal abdomen. Short umbilical cord. Placenta delivered intact spontaneously. FF at U after cytotec and IM pitocin since unable to get IV. Bleeding improved. NO perineal lacerations. Mother and baby stable upon provider leavint the room. LABOR SUMMARY EDC: 12/23/2019 00:00 No. Babies in Womb: 1 Attempted: No Labor Anesthesia: None LABOR INFORMATION Reason for Induction: Not Applicable Onset of Labor: 12/05/2019 00:10 Complete Dilatation: 12/05/2019 03:00 Oxytocin: N/A Group B Beta Strep: 1 NO GROUP B STREPTOCOCCUS RECOVERED Antibiotics # of Doses: 0 Antibiotics Time of Last Dose: 0 Name of Antibiotic Given: 0 Steroids Given: None Reason Steroids Not Administered: Not Applicable MEMBRANES Membranes Rupture Method: Spontaneous Rupture of Membranes: 12/05/2019 03:00 Length of Rupture (hr): 0.08 Amniotic Fluid Color: Clear Amniotic Fluid Amount: Large Amniotic Fluid Odor: Normal STAGES OF LABOR Stage 1 hr: 2 Stage 1 min: 50 Stage 2 hr: 0 Stage 2 min: 5 Stage 3 hr: 0 Stage 3 min: 3 Total Time in Labor hr: 2 Total Time in Labor min: 58 VAGINAL DELIVERY Episiotomy: None Laceration #1: None Laceration Extension #1: N/A Laceration Repair: Not Applicable Sponge Count Correct: Yes Sharps Count Correct: Yes BABY A INFORMATION Delivery Date/Time: 12/05/2019 03:05 Method of Delivery: Vaginal Nurse Controlled Delivery: No Born in Route : No : N/A Forceps: N/A Vacuum Extraction: N/A Shoulder Dystocia : No PRESENTATION/POSITION BABY A Presentation: Cephalic Cephalic Presentation: Vertex Vertex Position: Left Occipital Anterior Breech Presentation: N/A PLACENTA INFORMATION BABY A Placenta Delivery Time : 12/05/2019 03:08 Placenta Method of Delivery: Spontaneous Placenta Status: Delivered SCORES BABY A Heart Rate 1 min: >100 bpm Resp Effort 1 min: Good Cry Reflex Irritability 1 min: Cough or Sneeze or Pulls Away Muscle Tone 1 min: Active Motion Color 1 min: Body [place], Extremities Blue Resuscitation Effort 1 min: Tactile Stimulation SCORE 1 MIN: 9 Heart Rate 5 min: >100 bpm Resp Effort 5 min: Good Cry Reflex Irritability 5 min: Cough or Sneeze or Pulls Away Muscle Tone 5 min: Active Motion Color 5 min: Body [place], Extremities Blue Resuscitation Effort 5 min: Tactile Stimulation SCORE 5 MIN: 9 INFORMATION BABY A Gestational Age at Delivery: 37.3 Gestational Status: Early Term- 37- 38.6 Weeks Outcome : Liveborn Condition : Stable Sex: Male IDENTIFICATION BABY A Verification Date/Time: 12/05/2019 03:36 ID Band Number: [id number] Mother's Name Verified: Yes RN Verifying Infant: Shama CoffeyTONY Additional Verifying Personnel: Shama [place], CRYOGENIC TRANSPORT DRIVER WEIGHT/LENGTH BABY A Infant Birthweight (gm): 2760 Infant Weight (lb): 6 Infant Weight (oz): 1 Infant Length (in): 19.00 Infant Length (cm): 48.26 CORD INFORMATION BABY A No. Cord Vessels: 3 Nuchal Cord : N/A Cord Blood Taken: Yes-For Storage (Mom's Blood type +) Infant Suction: None ASSESSMENT BABY A Complications: None Physical Findings at Delivery: Within Normal Limits Respirations: Grunting; Nasal Flaring Skin to Skin: Yes Skin to Skin Time (min): 30 Movement Education Specialist/ALS Called : Yes Infant Care By: Wellington Casey RN Transferred To: Nursery BABY B INFORMATION : N/A SIGNATURES Signature: with User ID: [email or web address]
[2019-12-05] MEDS: OXYCODONE HCL IR 5 MG TABLET PO PRN ×4 (06:32→20:40)
[2019-12-05] MEDS: PANTOPRAZOLE SODIUM 40 MG TABLET.DR PO SCH (10:19)
[2019-12-05] MEDS: PRENATAL VITAMIN W DHA CAPSULE PO SCH (10:21)
[2019-12-05] MEDS: FAMOTIDINE 20 MG TABLET PO SCH ×2 (10:21→22:33)
[2019-12-05] MEDS: DOCUSATE SODIUM 100 MG CAPSULE PO SCH ×2 (10:21→17:30)
[2019-12-05] MEDS: SENNOSIDES/DOCUSATE 8.6-50 MG 1 EACH TABLET PO SCH (10:22)
[2019-12-05] MEDS: FERROUS SULFATE 325 MG TABLET PO SCH ×2 (10:22→17:30)
[2019-12-05] MEDS: IBUPROFEN 800 MG TABLET PO SCH ×3 (11:06→22:33)
--- NOTE | 2019-12-05 11:17 | PDOC PROGRESS REPORT ---
Subjective-OB Progress Note for:: 12/05/19 Subjective: Pt bonding with baby. at bedside. She reports light bleeding, reg diet and voiding w/o difficulty. Physical Exam (OB) Vital Signs: Temp Pulse Resp BP Pulse Ox 97.7 F 78 16 144/72 H 100 12/05/19 07:40 12/05/19 07:40 12/05/19 07:40 12/05/19 07:40 12/05/19 07:40 Intake & Output 12/04/19 12/05/19 12/06/19 06:59 06:59 06:59 Weight 76.3 kg - PIH/Pre-Eclampsia DTR's: 2 + Clonus: Negative Headache: Absent Epigastric Pain: No Visual Changes: No - Lochia Lochia Amount: Scant < 10 ml Lochia Color: Rubra/Red - Abdomen Description: Tender, Soft Hernia Present: Yes - Hiatal Fundal Description: Firm Fundal Height: u/u - u/2 Objective-Diagnostic Laboratory: 12/05/19 03:53 12/05/19 03:53 12/05/19 12/05/19 12/05/19 03:00 03:53 03:53 WBC 22.7 H RBC 4.13 Hgb 12.0 Hct 35.1 L MCV 85 MCH 29.2 MCHC 34.4 RDW 13.8 Plt Count 600 H Seg Neutrophils % Not Reportable Sodium Potassium Chloride Carbon Dioxide Anion Gap BUN Creatinine Est GFR ( Amer) Glucose Calcium Total Bilirubin AST Alkaline Phosphatase Total Protein Albumin Urine Color YELLOW Urine Appearance CLEAR Urine pH 6.0 Ur Specific [place] 1.011 Urine Protein NEGATIVE Urine Glucose (UA) NEGATIVE Urine Ketones NEGATIVE Urine Blood LARGE H Urine Nitrite NEGATIVE Ur Leukocyte Esterase NEGATIVE Blood Type O POSITIVE Antibody Screen NEGATIVE 12/05/19 03:53 WBC RBC Hgb Hct MCV MCH MCHC RDW Plt Count Seg Neutrophils % Sodium 130.3 L Potassium 4.0 Chloride 105 Carbon Dioxide 18 L Anion Gap 7 BUN 7 Creatinine 0.47 L Est GFR ( Amer) > 60 Glucose 143 H Calcium 8.9 Total Bilirubin 0.2 AST 23 Alkaline Phosphatase 157 H Total Protein 6.1 L Albumin 2.9 L Urine Color Urine Appearance Urine pH Ur Specific [place] Urine Protein Urine Glucose (UA) Urine Ketones Urine Blood Urine Nitrite Ur Leukocyte Esterase Blood Type Antibody Screen Assessment and Plan(PN) - Assessment and Plan (1) Advanced maternal age (AMA) in Is this a current diagnosis for this admission?: Yes (2) Hepatitis C Qualifiers: Viral hepatitis chronicity: chronic Is this a current diagnosis for this admission?: Yes (3) Limited care Qualifiers: Trimester: unspecified trimester Qualified Code(s): O09.30 - Supervision of with insufficient care, unspecified trimester Is this a current diagnosis for this admission?: Yes (4) Opioid dependence with current use Is this a current diagnosis for this admission?: Yes (5) Precipitous delivery, delivered (current hospitalization) Is this a current diagnosis for this admission?: Yes - Time Spent with Patient Time with patient: Less than 15 minutes Medications reviewed and adjusted accordingly: Yes - Disposition Anticipated Discharge: Home Within: within 24 hours
[2019-12-05] MEDS: PROMETHAZINE HCL 25 MG TABLET PO PRN (17:34)
[2019-12-05] MEDS ORDERED: NICOTINE 21 MG/24 HR PATCH.TD24 TD ONE (22:30)
[2019-12-06] MEDS: OXYCODONE HCL IR 5 MG TABLET PO PRN ×5 (01:48→20:38)
[2019-12-06] MEDS: IBUPROFEN 800 MG TABLET PO SCH ×3 (05:44→22:07)
[2019-12-06 07:31] LABS: HEMATOCRIT 39.6 % (36.0-47.0); HEMOGLOBIN 13.4 g/dL (12.0-15.5); MEAN CORPUSCULAR HEMOGLOBIN 28.9 pg (27.0-33.4); MEAN CORPUSCULAR HGB CONC 33.8 g/dL (32.0-36.0); MEAN CORPUSCULAR VOLUME 86 fl (80-97); RED BLOOD COUNT 4.63 10^6/uL (3.72-5.28); RED CELL DISTRIBUTION WIDTH 13.7 % (11.5-14.0); WHITE BLOOD COUNT 12.2 10^3/uL (4.0-10.5)
[2019-12-06 08:05] LABS: PLATELET COUNT 561 10^3/uL (150-450)
[2019-12-06] MEDS: FAMOTIDINE 20 MG TABLET PO SCH ×2 (09:54→22:08)
[2019-12-06] MEDS: SENNOSIDES/DOCUSATE 8.6-50 MG 1 EACH TABLET PO SCH (09:54)
[2019-12-06] MEDS: PANTOPRAZOLE SODIUM 40 MG TABLET.DR PO SCH (09:54)
[2019-12-06] MEDS: PRENATAL VITAMIN W DHA CAPSULE PO SCH (09:54)
[2019-12-06] MEDS: FERROUS SULFATE 325 MG TABLET PO SCH ×2 (09:54→17:44)
[2019-12-06] MEDS: DOCUSATE SODIUM 100 MG CAPSULE PO SCH ×2 (09:54→17:44)
[2019-12-06] MEDS: SUCRALFATE 1 GM TABLET PO SCH ×3 (09:56→17:27)
--- NOTE | 2019-12-06 10:00 | PDOC PROGRESS REPORT ---
Subjective-OB Progress Note for:: 12/06/19 Subjective: OOB in room, friend at BS, would like to go home today if baby can go, doing well Physical Exam (OB) Vital Signs: Temp Pulse Resp BP Pulse Ox 98.2 F 76 16 122/73 100 12/06/19 08:00 12/06/19 08:00 12/06/19 08:00 12/06/19 08:00 12/06/19 08:00 Intake & Output 12/05/19 12/06/19 12/07/19 06:59 06:59 06:59 Intake Total 1000 Balance 1000 Weight 76.3 kg - PIH/Pre-Eclampsia DTR's: 2 + Clonus: Negative Headache: Absent Epigastric Pain: No Visual Changes: No - Lochia Lochia Amount: Scant < 10 ml Lochia Color: Rubra/Red - Abdomen Description: Tender, Soft Hernia Present: Yes - hiatal hernia Fundal Description: Firm, Midline Fundal Height: u/u - u/2 Objective-Diagnostic Laboratory: 12/06/19 07:05 12/05/19 03:53 12/06/19 07:05 WBC 12.2 H RBC 4.63 Hgb 13.4 Hct 39.6 MCV 86 MCH 28.9 MCHC 33.8 RDW 13.7 Plt Count 561 H Assessment and Plan(PN) - Assessment and Plan (1) Opioid dependence with current use Is this a current diagnosis for this admission?: Yes (2) Advanced maternal age (AMA) in Is this a current diagnosis for this admission?: Yes (3) Limited care Qualifiers: Trimester: unspecified trimester Qualified Code(s): O09.30 - Supervision of with insufficient care, unspecified trimester Is this a current diagnosis for this admission?: Yes (4) Precipitous delivery, delivered (current hospitalization) Is this a current diagnosis for this admission?: Yes - Time Spent with Patient Time with patient: Less than 15 minutes Medications reviewed and adjusted accordingly: Yes - Disposition Anticipated Discharge: Home Within: within 24 hours
[2019-12-06] MEDS ORDERED: PROMETHAZINE HCL INJ 25 MG/1 ML VIAL IV PRN (13:00)
[2019-12-06] MEDS ORDERED: MEASLES,MUMPS&RUBELLA VACC/PF 0.5 ML VIAL SUBCUT PRN (13:00)
[2019-12-06] MEDS ORDERED: DIPH/PERTUSS(ACELL)/TETANUS VAC/PF 0.5 ML SYR (>=10YO) IM PRN (13:00)
[2019-12-06] MEDS ORDERED: VANCOMYCIN HCL 750 MG in DEXTROSE 5%-WATER 250 ML IV SCH (13:00)
[2019-12-06] MEDS: PROMETHAZINE HCL 25 MG TABLET PO PRN (17:46)
[2019-12-06] MEDS ORDERED: NICOTINE 21 MG/24 HR PATCH.TD24 TD SCH (22:00)
[2019-12-07] MEDS: OXYCODONE HCL IR 5 MG TABLET PO PRN ×4 (00:43→13:01)
[2019-12-07] MEDS ORDERED: PANTOPRAZOLE SODIUM 40 MG TABLET.DR PO SCH (06:00)
[2019-12-07] MEDS: IBUPROFEN 800 MG TABLET PO SCH ×2 (06:03→12:59)
[2019-12-07 07:50] VITALS: BP 122/73
[2019-12-07] MEDS: SENNOSIDES/DOCUSATE 8.6-50 MG 1 EACH TABLET PO SCH (09:53)
[2019-12-07] MEDS: FERROUS SULFATE 325 MG TABLET PO SCH (09:53)
[2019-12-07] MEDS: FAMOTIDINE 20 MG TABLET PO SCH (09:53)
[2019-12-07] MEDS: DOCUSATE SODIUM 100 MG CAPSULE PO SCH (09:53)
[2019-12-07] MEDS: PRENATAL VITAMIN W DHA CAPSULE PO SCH (09:53)
[2019-12-07] MEDS: PANTOPRAZOLE SODIUM 40 MG TABLET.DR PO SCH (09:55)
[2019-12-07] MEDS: SUCRALFATE 1 GM TABLET PO SCH (09:57)
--- NOTE | 2019-12-07 12:31 | PDOC DISCHARGE SUMMARY ---
Impression - Admit/DC Date/PCP Admission Date/Primary Care Provider: 12/05/19 03:02 MARY CRAIN MD Discharge Date: 12/07/19 - Discharge Diagnosis (1) Hepatitis C Is this a current diagnosis for this admission?: Yes (2) Limited care Is this a current diagnosis for this admission?: Yes (3) Opioid dependence with current use Is this a current diagnosis for this admission?: Yes (4) Precipitous delivery, delivered (current hospitalization) Is this a current diagnosis for this admission?: Yes - Additional Information Discharge Diet: Regular Discharge Activity: Balance Activity w/Rest, Pelvic Rest Referrals: MARY CRAIN MD [Primary Care Provider] - Prescriptions: Ibuprofen [Motrin 800 mg Tablet] 800 mg PO Q8HP PRN #90 tablet PRN Reason: Home Medications: Dexlansoprazole [Dexilant 30 mg Capsule] 30 mg PO DAILY 08/11/18 Sucralfate [Carafate] 1 gm PO ASDIR PRN 10/27/18 Vitamin [-U Multiple Vitamin Capsule] 1 cap PO DAILY 11/09/19 Oxycodone HCl [Oxy-Ir 5 mg Tablet] 1 tab PO PRN PRN 12/05/19 Ibuprofen [Motrin 800 mg Tablet] 800 mg PO Q8HP PRN #90 tablet 12/07/19 Results Laboratory Results: WBC 12.2 10^3/uL (4.0-10.5) H 12/06/19 07:05 RBC 4.63 10^6/uL (3.72-5.28) 12/06/19 07:05 Hgb 13.4 g/dL (12.0-15.5) 12/06/19 07:05 Hct 39.6 % (36.0-47.0) 12/06/19 07:05 MCV 86 fl (80-97) 12/06/19 07:05 MCH 28.9 pg (27.0-33.4) 12/06/19 07:05 MCHC 33.8 g/dL (32.0-36.0) 12/06/19 07:05 RDW 13.7 % (11.5-14.0) 12/06/19 07:05 Plt Count 561 10^3/uL (150-450) H 12/06/19 07:05 Lymph % (Auto) Not Reportable 12/05/19 03:53 Jay % (Auto) Not Reportable 12/05/19 03:53 Eos % (Auto) Not Reportable 12/05/19 03:53 Baso % (Auto) Not Reportable 12/05/19 03:53 Absolute Neuts (auto) Not Reportable 12/05/19 03:53 Absolute Lymphs (auto) Not Reportable 12/05/19 03:53 Absolute Monos (auto) Not Reportable 12/05/19 03:53 Absolute Eos (auto) Not Reportable 12/05/19 03:53 Absolute Basos (auto) Not Reportable 12/05/19 03:53 Total Counted 100 12/05/19 03:53 Seg Neutrophils % Not Reportable 12/05/19 03:53 Seg Neuts % (Manual) 93 % (42-78) H 12/05/19 03:53 Band Neutrophils % 1 % (3-5) L 12/05/19 03:53 Lymphocytes % (Manual) 4 % (13-45) L 12/05/19 03:53 Atypical Lymphs % 1 % (0) 12/05/19 03:53 Monocytes % (Manual) 1 % (3-13) L 12/05/19 03:53 Eosinophils % (Manual) 0 % (0-6) 12/05/19 03:53 Basophils % (Manual) 0 % (0-2) 12/05/19 03:53 Abs Neuts (Manual) 21.3 10^3/uL (1.7-8.2) H 12/05/19 03:53 Abs Lymphs (Manual) 1.1 10^3/uL (0.5-4.7) 12/05/19 03:53 Abs Monocytes (Manual) 0.2 10^3/uL (0.1-1.4) 12/05/19 03:53 Absolute Eos (Manual) 0.0 10^3/uL (0.0-0.6) 12/05/19 03:53 Abs Basophils (Manual) 0.0 10^3/uL (0.0-0.2) 12/05/19 03:53 Toxic Granulation SLIGHT 12/05/19 03:53 Platelet Comment INCREASED 12/05/19 03:53 Sodium 130.3 mmol/L (137-145) L 12/05/19 03:53 Potassium 4.0 mmol/L (3.6-5.0) 12/05/19 03:53 Chloride 105 mmol/L (98-107) 12/05/19 03:53 Carbon Dioxide 18 mmol/L (22-30) L 12/05/19 03:53 Anion Gap 7 (5-19) 12/05/19 03:53 BUN 7 mg/dL (7-20) 12/05/19 03:53 Creatinine 0.47 mg/dL (0.52-1.25) L 12/05/19 03:53 Est GFR ( Amer) > 60 (>60) 12/05/19 03:53 Est GFR (MDRD) Non-Af > 60 (>60) 12/05/19 03:53 Glucose 143 mg/dL (75-110) H 12/05/19 03:53 Calcium 8.9 mg/dL (8.4-10.2) 12/05/19 03:53 Total Bilirubin 0.2 mg/dL (0.2-1.3) 12/05/19 03:53 Direct Bilirubin 0.0 mg/dL (0.0-0.4) 12/05/19 03:53 Neonat Total Bilirubin Not Reportable 12/05/19 03:53 Neonat Direct Bilirubin Not Reportable 12/05/19 03:53 Neonat Indirect Bili Not Reportable 12/05/19 03:53 AST 23 U/L (14-36) 12/05/19 03:53 ALT 27 U/L (<35) 12/05/19 03:53 Alkaline Phosphatase 157 U/L (38-126) H 12/05/19 03:53 Total Protein 6.1 g/dL (6.3-8.2) L 12/05/19 03:53 Albumin 2.9 g/dL (3.5-5.0) L 12/05/19 03:53 Urine Color YELLOW 12/05/19 03:00 Urine Appearance CLEAR 12/05/19 03:00 Urine pH 6.0 (5.0-9.0) 12/05/19 03:00 Ur Specific [place] 1.011 12/05/19 03:00 Urine Protein NEGATIVE mg/dL (NEGATIVE) 12/05/19 03:00 Urine Glucose (UA) NEGATIVE mg/dL (NEGATIVE) 12/05/19 03:00 Urine Ketones NEGATIVE mg/dL (NEGATIVE) 12/05/19 03:00 Urine Blood LARGE (NEGATIVE) H 12/05/19 03:00 Urine Nitrite NEGATIVE (NEGATIVE) 12/05/19 03:00 Urine Bilirubin NEGATIVE (NEGATIVE) 12/05/19 03:00 Urine Urobilinogen NEGATIVE mg/dL (<2.0) 12/05/19 03:00 Ur Leukocyte Esterase NEGATIVE (NEGATIVE) 12/05/19 03:00 Urine Ascorbic Acid NEGATIVE (NEGATIVE) 12/05/19 03:00 Urine Opiates Screen UNCONFIRMED POSITIVE 12/05/19 03:00 Urine Methadone Screen NEGATIVE 12/05/19 03:00 Ur Barbiturates Screen NEGATIVE 12/05/19 03:00 Ur Phencyclidine Scrn NEGATIVE 12/05/19 03:00 Ur Amphetamines Screen NEGATIVE 12/05/19 03:00 U Benzodiazepines Scrn NEGATIVE 12/05/19 03:00 Urine Cocaine Screen NEGATIVE 12/05/19 03:00 U Marijuana (THC) Screen NEGATIVE 12/05/19 03:00 RPR NONREACTIVE (NONREACTIVE) 12/05/19 03:53 Blood Type O POSITIVE 12/05/19 03:53 Antibody Screen NEGATIVE 12/05/19 03:53 Plan Plan of Treatment: follow up in 4 weeks at [facility] for post check
== END 2019-12-07 13:11 | disposition home or self-care (01) | DRG 806 ==
LOC: LC 02:41 → LR 03:02 → 2S 04:44
PROVIDERS: ADMIT Student in an Organized Health Care Education/Training Program; ATTEND Student in an Organized Health Care Education/Training Program
PROC: 10E0XZZ Delivery of Products of Conception, External Approach (ICD-10-PCS; principal; 2019-12-05)
DX: O62.3 Precipitate labor (principal); F11.20 Opioid dependence, uncomplicated; Z37.0 Single live birth; O99.324 Drug use complicating childbirth; O98.42 Viral hepatitis complicating childbirth; O13.4 Gestational [pregnancy-induced] hypertension without significant proteinuria, complicating childbirth; B19.20 Unspecified viral hepatitis C without hepatic coma; O69.3XX0 Labor and delivery complicated by short cord, not applicable or unspecified; O99.334 Smoking (tobacco) complicating childbirth; F17.210 Nicotine dependence, cigarettes, uncomplicated; Z3A.37 37 weeks gestation of pregnancy
CPT/HCPCS: 36415; 80307; 80361; 81005; 85025; 85027; 86592; 86850; 86900; 86901; 87070; 87522; 88307; J2590; J3490